=== PATIENT | male | born 1970 | race Two or more races ===

== ENCOUNTER 2020-05-19 08:21 | Inpatient (IN) | payer BC, OTHER ==
[~2020-05-19] VITALS: Ht 167.6 cm; Wt 103.6 kg
[~2020-05-19 08:21] MED LIST: NAPR500T31 PO
[2020-05-19] MEDS ORDERED: ONDANSETRON HCL 4 MG/2 ML VIAL IV ONE (08:45)
[2020-05-19] MEDS ORDERED: ZINC SULFATE 220mg CAP or TAB PO ONE (08:45)
[2020-05-19] MEDS ORDERED: CHOLECALCIFEROL (VITD3) 2,000 UNIT CAP/TAB PO ONE ×2 (08:45→12:15)
[2020-05-19] MEDS ORDERED: methylPREDNISolone SOD SUCC 125 MG/2 ML VL IV ONE (08:45)
[2020-05-19] MEDS ORDERED: ASCORBIC ACID 500 MG TAB PO ONE (08:45)
[2020-05-19] MEDS ORDERED: AZITHROMYCIN 500MG/ 250ML 250 ML IV ONE (08:45)
[2020-05-19 10:02] LABS: Basophils # (auto) 0 10 ^3/uL (0-0.2); Eosinophils # (auto) 0 10 ^3/uL (0-0.8); Hemoglobin 15.3 g/dL (13.5-17.5); Lymphocytes # (auto) 1.4 10 ^3/uL (0.4-5.4); Lymphocytes % (auto) 9.6 % (10.0-50.0); Mean Corpuscular Hgb Conc. 34.4 g/dL (32.0-36.0); Neutrophils # (auto) 12.1 10 ^3/uL (1.6-8.6); Nucleated Red Blood Cells % 0.1 %
[2020-05-19 10:05] LABS: Basophils % (auto) 0.3 % (0.0-2.0); Hematocrit 44.7 % (41.0-53.0); Mean Corpuscular Hemoglobin 30.8 pg (28.0-32.0); Mean Corpuscular Volume 89.5 fL (80.0-100.0); Monocytes % (auto) 6.9 % (0.0-12.0); Neutrophils % (auto) 83.2 % (37.0-80.0); Platelet Count (auto) 350 10^3/uL (140-450); Red Blood Cells 4.99 10^6/uL (4.5-5.90); Red Cell Distribution Width 13.8 % (11.8-14.3); White Blood Cell 14.6 10^3/uL (4.4-10.8)
[2020-05-19 10:21] LABS: Calcium 8.2 mg/dL (8.5-10.1)
[2020-05-19 10:24] LABS: Bilirubin, Total 0.5 mg/dL (0.2-1.0); Total Protein 7.8 g/dL (6.4-8.2)
[2020-05-19 10:28] LABS: Potassium 5.3 mmol/L (3.5-5.1)
[2020-05-19 10:30] LABS: BUN/Creatinine Ratio 18.4
[2020-05-19] MEDS ORDERED: NITROGLYCERIN 0.4 MG SL TAB SL PRN (10:45)
[2020-05-19] MEDS ORDERED: REMDESIVIR PER PHARMACY 0 ML IV SCH (10:45)
[2020-05-19] MEDS ORDERED: diphenhdrAMINE HCL 50 MG/1 ML VL IV PRN (11:45)
[2020-05-19] MEDS ORDERED: SODIUM ZIRCONIUM CYCL 10 GM PAK PO ONE (12:00)
[2020-05-19] MEDS ORDERED: traMADol HCL 50 MG TAB PO PRN (12:00)
[2020-05-19] MEDS ORDERED: FUROSEMIDE 40 MG/4 ML VIAL IV ONE (12:00)
[2020-05-19] MEDS ORDERED: LACTULOSE 20Gm/30ML SOLN PO PRN (12:00)
[2020-05-19] MEDS ORDERED: DEXTROSE (50%) 50ML SYRG IV PRN (12:00)
[2020-05-19] MEDS ORDERED: levoFLOXacin 500MG 100 ML IV ONE (12:00)
[2020-05-19] MEDS ORDERED: InsuLIN REG 1unit/0.01ml Soln (100units/ml) IV ONE (12:00)
[2020-05-19] MEDS ORDERED: DEXTROSE (50%) 50ML SYRG IV ONE (12:00)
[2020-05-19] MEDS ORDERED: IVERMECTIN 3 MG TAB PO ONE (12:15)
[2020-05-19] MEDS ORDERED: FAMOTIDINE 20 MG TAB PO ONE (12:15)
[2020-05-19] MEDS ORDERED: DexAMETHasone SOD PHOS 10MG/1ML VIAL INJ IV ONE (12:15)
[2020-05-19] MEDS ORDERED: ENOXAPARIN SOD 40 MG/0.4 ML SYRINGE SC ONE (12:15)
[2020-05-19] MEDS ORDERED: ASCORBIC ACID 1,000 MG TAB PO ONE (12:15)
[2020-05-19] MEDS: SODIUM CHLORIDE 0.9% 1,000 ML IV SCH (12:18)
[2020-05-19] MEDS: MORPHINE SULF INJ 2 MG/ML SYRINGE 1ML IV PRN (12:27)
[2020-05-19] MEDS: PROMETHAZINE HCL 25 MG/ML 1ML IV PRN (12:28)
[2020-05-19 12:33] LABS: Urine Bacteria NONE SEEN /hpf (None Seen); Urine Blood Negative /uL (Negative); Urine Specific Gravity 1.021 (1.001-1.035); Urine WBC 1 /hpf (0 - 3)
[2020-05-19] MEDS: CLINDAMYCIN 600MG IV 50 ML IV SCH ×2 (14:18→22:40)
[2020-05-19] MEDS ORDERED: REMDESIVIR 200 MG in NS 210ml LOADING DOSE ADULT IV ONE (15:00)
[2020-05-19 16:33] LABS: BUN/Creatinine Ratio 15.7; Calcium 7.9 mg/dL (8.5-10.1)
[2020-05-19] MEDS: InsuLIN REG 1unit/0.01ml Soln (100units/ml) SC SCH ×2 (16:50→22:45)
[2020-05-19] MEDS: ACCU-CHEK COMFORT CURVE STRIP VI SCH ×2 (16:51→22:30)
[2020-05-19 17:06] VITALS: BP 125/77
[2020-05-19 17:29] VITALS: BP 123/73
[2020-05-19 17:45] VITALS: BP 124/79
[2020-05-19 18:09] VITALS: BP 141/84
[2020-05-19] MEDS: ALBUTEROL SULF HFA 90MCG INH 200DOSE IN PRN (18:59)
[2020-05-19] MEDS: BUDESONIDE (INHALATION) 180 MCG IH IN SCH (18:59)
[2020-05-19] MEDS ORDERED: FAMOTIDINE 20 MG TAB PO SCH (22:00)
[2020-05-19] MEDS: FAMOTIDINE (10MG/ML) 2ML VL IV SCH (22:40)
[2020-05-19] MEDS: ENOXAPARIN SOD 40 MG/0.4 ML SYRINGE SC SCH (22:45)
[2020-05-20] MEDS: SODIUM CHLORIDE 0.9% 1,000 ML IV SCH (01:20)
[2020-05-20] MEDS: MORPHINE SULF INJ 2 MG/ML SYRINGE 1ML IV PRN ×2 (04:01→20:47)
[2020-05-20] MEDS: CLINDAMYCIN 600MG IV 50 ML IV SCH ×2 (06:00→13:36)
[2020-05-20 07:50] LABS: Basophils # (auto) 0.1 10 ^3/uL (0-0.2); Basophils % (auto) 0.6 % (0.0-2.0); Eosinophils # (auto) 0 10 ^3/uL (0-0.8); Hematocrit 45.5 % (41.0-53.0); Hemoglobin 15.2 g/dL (13.5-17.5); Lymphocytes # (auto) 1.8 10 ^3/uL (0.4-5.4); Lymphocytes % (auto) 11.9 % (10.0-50.0); Mean Corpuscular Hemoglobin 30.1 pg (28.0-32.0); Mean Corpuscular Hgb Conc. 33.4 g/dL (32.0-36.0); Mean Corpuscular Volume 90.4 fL (80.0-100.0); Monocytes # (auto) 1.5 10 ^3/uL (0-1.3); Neutrophils # (auto) 11.6 10 ^3/uL (1.6-8.6); Neutrophils % (auto) 77.5 % (37.0-80.0); Nucleated Red Blood Cells % 0.1 %; Platelet Count (auto) 403 10^3/uL (140-450); Red Blood Cells 5.03 10^6/uL (4.5-5.90)
[2020-05-20] MEDS: ALBUTEROL SULF HFA 90MCG INH 200DOSE IN PRN ×2 (07:50→22:39)
[2020-05-20] MEDS: BUDESONIDE (INHALATION) 180 MCG IH IN SCH ×2 (07:50→22:00)
[2020-05-20 08:10] LABS: Albumin 3.2 g/dL (3.4-5.0); Calcium 8.6 mg/dL (8.5-10.1); Potassium 4.3 mmol/L (3.5-5.1)
[2020-05-20 08:14] LABS: BUN/Creatinine Ratio 18.4; Bilirubin, Total 0.3 mg/dL (0.2-1.0); Total Protein 7.8 g/dL (6.4-8.2)
[2020-05-20] MEDS: ZINC SULFATE 220mg CAP or TAB PO SCH (10:00)
[2020-05-20] MEDS ORDERED: levoFLOXacin 500MG 100 ML IV SCH (10:00)
[2020-05-20] MEDS: CHOLECALCIFEROL (VITD3) 2,000 UNIT CAP/TAB PO SCH (10:00)
[2020-05-20] MEDS: DexAMETHasone SOD PHOS 10MG/1ML VIAL INJ IV SCH (10:00)
[2020-05-20] MEDS: FAMOTIDINE (10MG/ML) 2ML VL IV SCH ×2 (10:00→21:33)
[2020-05-20] MEDS ORDERED: IVERMECTIN 3 MG TAB PO ONE (10:00)
[2020-05-20] MEDS: ASCORBIC ACID 1,000 MG TAB PO SCH (10:00)
[2020-05-20] MEDS: ENOXAPARIN SOD 40 MG/0.4 ML SYRINGE SC SCH ×2 (10:00→21:33)
[2020-05-20] MEDS: InsuLIN REG 1unit/0.01ml Soln (100units/ml) SC SCH ×4 (10:33→21:35)
[2020-05-20] MEDS: ACCU-CHEK COMFORT CURVE STRIP VI SCH ×4 (10:33→21:34)
[2020-05-20] MEDS: REMDESIVIR 100mg 100 MG in SODIUM CHL 0.9% 230 ML IV SCH (13:46)
[2020-05-20] MEDS ORDERED: FUROSEMIDE 20 MG/2 ML VIAL IV ONE (14:00)
[2020-05-20] MEDS ORDERED: POTASSIUM CHL 10 Meq TABLET PO ONE (14:00)
[2020-05-20] MEDS: DOXYCYCLINE 100 MG TAB/CAP PO SCH (21:33)
[2020-05-21] MEDS: ALBUTEROL SULF HFA 90MCG INH 200DOSE IN PRN ×2 (00:23→07:08)
[2020-05-21] MEDS: BUDESONIDE (INHALATION) 180 MCG IH IN SCH ×3 (00:25→19:05)
[2020-05-21] MEDS: guaiFENesin-DM 100/10mg/5ml SYR PO PRN ×3 (03:34→23:10)
[2020-05-21 04:59] LABS: Basophils # (auto) 0 10 ^3/uL (0-0.2); Basophils % (auto) 0.3 % (0.0-2.0); Eosinophils # (auto) 0 10 ^3/uL (0-0.8); Hematocrit 42.3 % (41.0-53.0); Hemoglobin 14.4 g/dL (13.5-17.5); Lymphocytes # (auto) 1.9 10 ^3/uL (0.4-5.4); Lymphocytes % (auto) 12.1 % (10.0-50.0); Mean Corpuscular Hemoglobin 30.6 pg (28.0-32.0); Mean Corpuscular Volume 90.1 fL (80.0-100.0); Monocytes # (auto) 1.2 10 ^3/uL (0-1.3); Monocytes % (auto) 7.5 % (0.0-12.0); Neutrophils # (auto) 12.8 10 ^3/uL (1.6-8.6); Neutrophils % (auto) 80.1 % (37.0-80.0); Nucleated Red Blood Cells % 0.1 %; Platelet Count (auto) 391 10^3/uL (140-450); Red Cell Distribution Width 14.1 % (11.8-14.3)
[2020-05-21 05:17] LABS: Calcium 7.5 mg/dL (8.5-10.1); Magnesium 2.3 mg/dL (1.6-2.6); Potassium 3.9 mmol/L (3.5-5.1)
[2020-05-21 05:24] LABS: Albumin 2.6 g/dL (3.4-5.0); BUN/Creatinine Ratio 24.7; Bilirubin, Total 0.3 mg/dL (0.2-1.0); Total Protein 6.8 g/dL (6.4-8.2)
[2020-05-21] MEDS ORDERED: CALCIUM GLUC 4.65meq/50ml D5AE 50 ML IV ONE (06:00)
[2020-05-21] MEDS: InsuLIN REG 1unit/0.01ml Soln (100units/ml) SC SCH ×4 (07:00→21:51)
[2020-05-21] MEDS: ACCU-CHEK COMFORT CURVE STRIP VI SCH ×4 (07:12→21:52)
[2020-05-21] MEDS: MORPHINE SULF INJ 2 MG/ML SYRINGE 1ML IV PRN ×3 (08:26→22:42)
[2020-05-21] MEDS: FUROSEMIDE 20 MG/2 ML VIAL IV SCH (10:20)
[2020-05-21] MEDS: DexAMETHasone SOD PHOS 10MG/1ML VIAL INJ IV SCH (10:20)
[2020-05-21] MEDS: ZINC SULFATE 220mg CAP or TAB PO SCH (10:20)
[2020-05-21] MEDS: FAMOTIDINE (10MG/ML) 2ML VL IV SCH ×2 (10:20→21:46)
[2020-05-21] MEDS: ENOXAPARIN SOD 40 MG/0.4 ML SYRINGE SC SCH ×2 (10:21→21:52)
[2020-05-21] MEDS: CHOLECALCIFEROL (VITD3) 2,000 UNIT CAP/TAB PO SCH (10:21)
[2020-05-21] MEDS: DOXYCYCLINE 100 MG TAB/CAP PO SCH ×2 (10:21→21:46)
[2020-05-21] MEDS: ASCORBIC ACID 1,000 MG TAB PO SCH (10:21)
[2020-05-21] MEDS: POTASSIUM CHL 10 Meq TABLET PO SCH (10:28)
[2020-05-21] MEDS: REMDESIVIR 100mg 100 MG in SODIUM CHL 0.9% 230 ML IV SCH (14:49)
[2020-05-21] MEDS: ERGOCALCIFEROL 50,000 UNIT(1.25MG) CAP PO SCH (15:00)
[2020-05-21] MEDS: INSULIN LANTUS (GLARGINE) 1 /0.01ml (100units/ml) SC SCH (21:52)
[2020-05-22] MEDS: InsuLIN REG 1unit/0.01ml Soln (100units/ml) SC SCH ×4 (05:38→22:01)
[2020-05-22] MEDS: ACCU-CHEK COMFORT CURVE STRIP VI SCH ×4 (05:39→21:25)
[2020-05-22 05:59] LABS: Basophils # (auto) 0.2 10 ^3/uL (0-0.2); Eosinophils # (auto) 0 10 ^3/uL (0-0.8); Mean Corpuscular Hemoglobin 30.5 pg (28.0-32.0); Mean Corpuscular Hgb Conc. 33.7 g/dL (32.0-36.0); Nucleated Red Blood Cells % 0.1 %
[2020-05-22 06:01] LABS: Basophils % (auto) 1.3 % (0.0-2.0); Hematocrit 43.7 % (41.0-53.0); Hemoglobin 14.7 g/dL (13.5-17.5); Lymphocytes % (auto) 11.8 % (10.0-50.0); Mean Corpuscular Volume 90.6 fL (80.0-100.0); Monocytes # (auto) 1.2 10 ^3/uL (0-1.3); Monocytes % (auto) 7.3 % (0.0-12.0); Neutrophils # (auto) 13.2 10 ^3/uL (1.6-8.6); Neutrophils % (auto) 79.6 % (37.0-80.0); Platelet Count (auto) 473 10^3/uL (140-450); Red Blood Cells 4.82 10^6/uL (4.5-5.90); White Blood Cell 16.6 10^3/uL (4.4-10.8)
[2020-05-22] MEDS: MORPHINE SULF INJ 2 MG/ML SYRINGE 1ML IV PRN ×3 (06:09→21:24)
[2020-05-22 06:25] LABS: Albumin 2.7 g/dL (3.4-5.0); Potassium 4.3 mmol/L (3.5-5.1)
[2020-05-22 06:36] LABS: BUN/Creatinine Ratio 24.7; Bilirubin, Total 0.4 mg/dL (0.2-1.0); CRP High Sensitivity 8.99 mg/dL (< 0.3); Calcium 8.2 mg/dL (8.5-10.1)
[2020-05-22] MEDS: BUDESONIDE (INHALATION) 180 MCG IH IN SCH ×2 (07:30→18:53)
[2020-05-22] MEDS: ALBUTEROL SULF HFA 90MCG INH 200DOSE IN PRN ×2 (07:30→18:52)
[2020-05-22] MEDS: FUROSEMIDE 20 MG/2 ML VIAL IV SCH (09:50)
[2020-05-22] MEDS: DexAMETHasone SOD PHOS 10MG/1ML VIAL INJ IV SCH ×2 (09:50→22:00)
[2020-05-22] MEDS: POTASSIUM CHL 10 Meq TABLET PO SCH (09:51)
[2020-05-22] MEDS: ZINC SULFATE 220mg CAP or TAB PO SCH (09:51)
[2020-05-22] MEDS: ENOXAPARIN SOD 40 MG/0.4 ML SYRINGE SC SCH ×2 (09:51→22:00)
[2020-05-22] MEDS: ASCORBIC ACID 1,000 MG TAB PO SCH (09:51)
[2020-05-22] MEDS: FAMOTIDINE (10MG/ML) 2ML VL IV SCH ×2 (09:51→22:00)
[2020-05-22] MEDS: CHOLECALCIFEROL (VITD3) 2,000 UNIT CAP/TAB PO SCH (09:51)
[2020-05-22] MEDS: DOXYCYCLINE 100 MG TAB/CAP PO SCH ×2 (09:51→22:00)
[2020-05-22] MEDS: REMDESIVIR 100mg 100 MG in SODIUM CHL 0.9% 230 ML IV SCH (15:27)
[2020-05-22] MEDS: PROMETHAZINE HCL 25 MG/ML 1ML IV PRN (21:25)
[2020-05-22] MEDS: INSULIN LANTUS (GLARGINE) 1 /0.01ml (100units/ml) SC SCH (22:02)
[2020-05-23] MEDS: TEMAZEPAM 15 MG CAP PO PRN (02:37)
[2020-05-23] MEDS: MORPHINE SULF INJ 2 MG/ML SYRINGE 1ML IV PRN ×3 (06:30→20:31)
[2020-05-23] MEDS: PROMETHAZINE HCL 25 MG/ML 1ML IV PRN ×2 (06:30→20:32)
[2020-05-23] MEDS: ACCU-CHEK COMFORT CURVE STRIP VI SCH ×4 (06:43→22:00)
[2020-05-23] MEDS: InsuLIN REG 1unit/0.01ml Soln (100units/ml) SC SCH ×4 (06:44→22:32)
[2020-05-23 09:07] LABS: Albumin 2.8 g/dL (3.4-5.0); Calcium 8.5 mg/dL (8.5-10.1); Potassium 4.3 mmol/L (3.5-5.1)
[2020-05-23 09:10] LABS: BUN/Creatinine Ratio 19.5; Bilirubin, Total 0.5 mg/dL (0.2-1.0); Total Protein 7.5 g/dL (6.4-8.2)
[2020-05-23] MEDS: BUDESONIDE (INHALATION) 180 MCG IH IN SCH ×2 (10:00→18:36)
[2020-05-23] MEDS: FUROSEMIDE 20 MG/2 ML VIAL IV SCH (10:38)
[2020-05-23] MEDS: DexAMETHasone SOD PHOS 10MG/1ML VIAL INJ IV SCH ×2 (10:38→22:00)
[2020-05-23] MEDS: ZINC SULFATE 220mg CAP or TAB PO SCH (10:38)
[2020-05-23] MEDS: FAMOTIDINE (10MG/ML) 2ML VL IV SCH ×2 (10:38→22:00)
[2020-05-23] MEDS: ENOXAPARIN SOD 40 MG/0.4 ML SYRINGE SC SCH ×2 (10:39→22:00)
[2020-05-23] MEDS: CHOLECALCIFEROL (VITD3) 2,000 UNIT CAP/TAB PO SCH (10:39)
[2020-05-23] MEDS: DOXYCYCLINE 100 MG TAB/CAP PO SCH ×2 (10:39→22:00)
[2020-05-23] MEDS: POTASSIUM CHL 10 Meq TABLET PO SCH (10:39)
[2020-05-23] MEDS: ASCORBIC ACID 1,000 MG TAB PO SCH (10:39)
[2020-05-23] MEDS: REMDESIVIR 100mg 100 MG in SODIUM CHL 0.9% 230 ML IV SCH (14:25)
[2020-05-23] MEDS: guaiFENesin-DM 100/10mg/5ml SYR PO PRN (18:51)
[2020-05-23] MEDS: ALBUTEROL SULF HFA 90MCG INH 200DOSE IN PRN (20:00)
[2020-05-23] MEDS: INSULIN LANTUS (GLARGINE) 1 /0.01ml (100units/ml) SC SCH (22:32)
[2020-05-24] MEDS: PROMETHAZINE HCL 25 MG/ML 1ML IV PRN (06:04)
[2020-05-24] MEDS: MORPHINE SULF INJ 2 MG/ML SYRINGE 1ML IV PRN ×3 (06:04→19:37)
[2020-05-24] MEDS: ACCU-CHEK COMFORT CURVE STRIP VI SCH ×4 (06:27→23:10)
[2020-05-24] MEDS: InsuLIN REG 1unit/0.01ml Soln (100units/ml) SC SCH ×4 (06:47→23:03)
[2020-05-24] MEDS: BUDESONIDE (INHALATION) 180 MCG IH IN SCH ×2 (06:53→19:15)
[2020-05-24] MEDS: ALBUTEROL SULF HFA 90MCG INH 200DOSE IN PRN ×2 (06:53→19:15)
[2020-05-24 07:45] LABS: Lactic Acid w/Reflex 2.4 mmol/L (0.4-2.0)
[2020-05-24 07:46] LABS: Potassium 4.5 mmol/L (3.5-5.1)
[2020-05-24 07:59] LABS: CRP High Sensitivity 8.11 mg/dL (< 0.3)
[2020-05-24 08:09] LABS: INR 1.18 (0.9-1.15)
[2020-05-24] MEDS: DexAMETHasone SOD PHOS 10MG/1ML VIAL INJ IV SCH ×2 (08:54→23:09)
[2020-05-24] MEDS: FUROSEMIDE 20 MG/2 ML VIAL IV SCH (08:54)
[2020-05-24] MEDS: POTASSIUM CHL 10 Meq TABLET PO SCH (08:55)
[2020-05-24] MEDS: DOXYCYCLINE 100 MG TAB/CAP PO SCH ×2 (08:55→23:09)
[2020-05-24] MEDS: ZINC SULFATE 220mg CAP or TAB PO SCH (08:55)
[2020-05-24] MEDS: FAMOTIDINE (10MG/ML) 2ML VL IV SCH ×2 (08:55→23:09)
[2020-05-24] MEDS: ASCORBIC ACID 1,000 MG TAB PO SCH (08:56)
[2020-05-24] MEDS: ENOXAPARIN SOD 40 MG/0.4 ML SYRINGE SC SCH (08:56)
[2020-05-24] MEDS: CHOLECALCIFEROL (VITD3) 2,000 UNIT CAP/TAB PO SCH (08:56)
[2020-05-24] MEDS: FUROSEMIDE 40 MG/4 ML VIAL IV SCH (09:39)
[2020-05-24] MEDS ORDERED: LIDOCAINE VISCOUS 2% 15ML UD MT ONE (09:45)
[2020-05-24] MEDS ORDERED: DONNATAL 5ml ORAL Elix (BELLADONNA ALK-PHENOBARB) PO ONE (09:45)
[2020-05-24] MEDS ORDERED: POTASSIUM CHL 20 Meq TABLET PO SCH (10:00)
[2020-05-24] MEDS ORDERED: ALUM & MAG HYDROX-SIMETH LIQ(MAALOX) 30 ML PO ONE (10:00)
[2020-05-24 12:23] VITALS: BP 117/72
[2020-05-24] MEDS ORDERED: METF-370 PO (12:36)
[2020-05-24] MEDS ORDERED: IOHEXOL 350 MG/ML 100ML IJ ONE (14:41)
[2020-05-24 16:00] VITALS: BP 99/55
[2020-05-24] MEDS ORDERED: HYDROmorphone HCL 2 MG/ML VL IV ONE (20:00)
[2020-05-24] MEDS ORDERED: METOPROLOL SUCCINATE XL 50 MG TAB PO ONE (20:00)
[2020-05-24] MEDS ORDERED: SODIUM CHLORIDE 0.9% 1,000 ML IV ONE (20:00)
[2020-05-24] MEDS: INSULIN LANTUS (GLARGINE) 1 /0.01ml (100units/ml) SC SCH (23:02)
[2020-05-24] MEDS: ENOXAPARIN SOD 100 MG/1 ML SYRINGE SC SCH (23:10)
[2020-05-24] MEDS: ALUM & MAG HYDROX-SIMETH LIQ(MAALOX) 30 ML PO PRN (23:53)
[2020-05-25] VITALS (12 sets, daily range): BP systolic 95–126; BP diastolic 54–87
[2020-05-25] MEDS: MORPHINE SULF INJ 2 MG/ML SYRINGE 1ML IV PRN ×3 (06:02→20:30)
[2020-05-25] MEDS: BUDESONIDE (INHALATION) 180 MCG IH IN SCH ×2 (06:30→20:40)
[2020-05-25] MEDS: ALBUTEROL SULF HFA 90MCG INH 200DOSE IN PRN ×2 (06:31→20:44)
[2020-05-25] MEDS: ACCU-CHEK COMFORT CURVE STRIP VI SCH ×4 (07:03→22:42)
[2020-05-25] MEDS: InsuLIN REG 1unit/0.01ml Soln (100units/ml) SC SCH ×4 (07:04→22:43)
[2020-05-25 08:10] LABS: Hematocrit 47.8 % (41.0-53.0); Hemoglobin 16.2 g/dL (13.5-17.5); Mean Corpuscular Hemoglobin 30.4 pg (28.0-32.0); Mean Corpuscular Hgb Conc. 33.8 g/dL (32.0-36.0); Mean Corpuscular Volume 89.9 fL (80.0-100.0); Platelet Count (auto) 340 10^3/uL (140-450); Red Blood Cells 5.32 10^6/uL (4.5-5.90); Red Cell Distribution Width 13.6 % (11.8-14.3); White Blood Cell 24.8 10^3/uL (4.4-10.8)
[2020-05-25 08:26] LABS: Basophils % (manual) 0 (0.0-2.0); Blast Cells 0; Eosinophils % (manual) 0 (0-7); Promyelocytes % 0; Reactive Lymphocytes 0
[2020-05-25 08:30] LABS: Potassium 4.9 mmol/L (3.5-5.1)
[2020-05-25 08:41] LABS: Albumin 2.6 g/dL (3.4-5.0); BUN/Creatinine Ratio 27.9; Bilirubin, Total 0.6 mg/dL (0.2-1.0); Calcium 8.6 mg/dL (8.5-10.1); Magnesium 2.7 mg/dL (1.6-2.6); Total Protein 7.1 g/dL (6.4-8.2)
[2020-05-25 09:03] LABS: INR 1.25 (0.9-1.15)
[2020-05-25] MEDS: FUROSEMIDE 40 MG/4 ML VIAL IV SCH (10:00)
[2020-05-25] MEDS: ENOXAPARIN SOD 100 MG/1 ML SYRINGE SC SCH ×2 (11:04→22:42)
[2020-05-25] MEDS: DexAMETHasone SOD PHOS 10MG/1ML VIAL INJ IV SCH ×2 (11:05→22:41)
[2020-05-25] MEDS: ASCORBIC ACID 1,000 MG TAB PO SCH (11:05)
[2020-05-25] MEDS: ZINC SULFATE 220mg CAP or TAB PO SCH (11:05)
[2020-05-25] MEDS: CHOLECALCIFEROL (VITD3) 2,000 UNIT CAP/TAB PO SCH (11:05)
[2020-05-25] MEDS: FAMOTIDINE (10MG/ML) 2ML VL IV SCH ×2 (11:05→22:41)
[2020-05-25] MEDS: DOXYCYCLINE 100 MG TAB/CAP PO SCH (11:06)
[2020-05-25] MEDS: POTASSIUM CHL 10 Meq TABLET PO SCH (11:06)
[2020-05-25] MEDS: ALUM & MAG HYDROX-SIMETH LIQ(MAALOX) 30 ML PO PRN (11:32)
[2020-05-25 13:12] LABS: Band Neutrophils % (manual) 27; Lymphocytes % (manual) 6 (10.0-50.0); Metamyelocytes % 2; Monocytes % (manual) 1 (0-12); Myelocytes % 1
[2020-05-25] MEDS: PIPERACILLIN-TAZOB 3.375GM 100 ML IV SCH ×2 (17:54→23:32)
[2020-05-25] MEDS: INSULIN LANTUS (GLARGINE) 1 /0.01ml (100units/ml) SC SCH (22:45)
[2020-05-25] MEDS: TEMAZEPAM 15 MG CAP PO PRN (23:03)
[2020-05-25 23:10] LABS: INR 1.24 (0.9-1.15); Partial Thromboplastin Time 29.3 sec (23.0-31.2)
[2020-05-26] VITALS (61 sets, daily range): BP systolic 77–215; BP diastolic 46–160
[2020-05-26] MEDS: LORazepam 0.5 MG TAB PO PRN ×2 (01:00→09:00)
[2020-05-26] MEDS: guaiFENesin-DM 100/10mg/5ml SYR PO PRN (01:23)
[2020-05-26] MEDS: MORPHINE SULF INJ 2 MG/ML SYRINGE 1ML IV PRN (03:42)
[2020-05-26] MEDS: BUDESONIDE (INHALATION) 180 MCG IH IN SCH (06:06)
[2020-05-26] MEDS: ALBUTEROL SULF HFA 90MCG INH 200DOSE IN PRN (06:06)
[2020-05-26] MEDS: ACCU-CHEK COMFORT CURVE STRIP VI SCH ×4 (06:31→23:13)
[2020-05-26] MEDS: InsuLIN REG 1unit/0.01ml Soln (100units/ml) SC SCH ×3 (06:33→18:00)
[2020-05-26] MEDS: PIPERACILLIN-TAZOB 3.375GM 100 ML IV SCH ×4 (06:33→23:14)
[2020-05-26 09:37] LABS: Hematocrit 44.9 % (41.0-53.0); Mean Corpuscular Hemoglobin 30.3 pg (28.0-32.0); Mean Corpuscular Hgb Conc. 33.4 g/dL (32.0-36.0); Mean Corpuscular Volume 90.6 fL (80.0-100.0); Platelet Count (auto) 323 10^3/uL (140-450); Red Blood Cells 4.96 10^6/uL (4.5-5.90); White Blood Cell 23.9 10^3/uL (4.4-10.8)
[2020-05-26 09:54] LABS: Albumin 2.2 g/dL (3.4-5.0); Calcium 7.7 mg/dL (8.5-10.1); Potassium 4.2 mmol/L (3.5-5.1)
[2020-05-26 09:55] LABS: Band Neutrophils % (manual) 0; Basophils % (manual) 0 (0.0-2.0); Blast Cells 0; Eosinophils % (manual) 0 (0-7); INR 1.24 (0.9-1.15); Metamyelocytes % 0; Myelocytes % 0; Partial Thromboplastin Time 29.6 sec (23.0-31.2); Promyelocytes % 0; Reactive Lymphocytes 0
[2020-05-26 09:58] LABS: BUN/Creatinine Ratio 24.3; Bilirubin, Total 0.6 mg/dL (0.2-1.0); Total Protein 6.6 g/dL (6.4-8.2)
[2020-05-26] MEDS: POTASSIUM CHL 10 Meq TABLET PO SCH (10:00)
[2020-05-26] MEDS: CHOLECALCIFEROL (VITD3) 2,000 UNIT CAP/TAB PO SCH (10:00)
[2020-05-26] MEDS: ZINC SULFATE 220mg CAP or TAB PO SCH (10:00)
[2020-05-26] MEDS: FAMOTIDINE (10MG/ML) 2ML VL IV SCH ×2 (10:00→23:12)
[2020-05-26] MEDS: ENOXAPARIN SOD 100 MG/1 ML SYRINGE SC SCH ×2 (10:00→22:00)
[2020-05-26] MEDS: ASCORBIC ACID 1,000 MG TAB PO SCH (10:00)
[2020-05-26] MEDS: DexAMETHasone SOD PHOS 10MG/1ML VIAL INJ IV SCH ×2 (10:00→23:10)
[2020-05-26] MEDS: FUROSEMIDE 40 MG/4 ML VIAL IV SCH (10:00)
[2020-05-26 11:23] LABS: Lymphocytes % (manual) 7 (10.0-50.0); Monocytes % (manual) 2 (0-12)
[2020-05-26] MEDS ORDERED: LORazepam 2MG/ML-1ML VIAL IV PRN (14:15)
[2020-05-26] MEDS: fentaNYL Drip 2500mCg/250mlNS 250 ML IV SCH (16:00)
[2020-05-26] MEDS: PROPOFOL 100 ML IV SCH (16:00)
[2020-05-26] MEDS: NOREPINEPHRINE 8 MG/250ML KIT 250 ML IV SCH (16:00)
[2020-05-26] MEDS: MIDAZOLAM DRIP 50 mg/50mL 50 ML IV SCH (16:00)
[2020-05-26] MEDS ORDERED: ETOMIDATE (2MG/ML) 20ML VIAL IV ONE (16:12)
[2020-05-26] MEDS ORDERED: SUCCINYLCHOLINE CHLORIDE 20 MG/ML 10ML VIAL IV ONE (16:12)
[2020-05-26] MEDS ORDERED: fentaNYL Drip 2500mCg/250mlNS 250 ML IV ONE (16:14)
[2020-05-26] MEDS ORDERED: MIDAZOLAM DRIP 50 mg/50mL 50 ML IV ONE ×2 (16:14→16:49)
[2020-05-26] MEDS ORDERED: PROPOFOL 100 ML IV ONE (17:13)
[2020-05-26] MEDS ORDERED: NOREPINEPHRINE 8 MG/250ML KIT 250 ML IV ONE ×2 (17:13→17:44)
[2020-05-26] MEDS ORDERED: ALTEPLASE (RECOMBINANT) 100 MG in STERILE WATER 100 ML IV ONE ×4 (22:45)
[2020-05-26 23:47] LABS: Hematocrit 44.9 % (41.0-53.0); Mean Corpuscular Hemoglobin 30.4 pg (28.0-32.0); Mean Corpuscular Hgb Conc. 33.4 g/dL (32.0-36.0); Mean Corpuscular Volume 90.9 fL (80.0-100.0); Platelet Count (auto) 359 10^3/uL (140-450); Red Blood Cells 4.93 10^6/uL (4.5-5.90); Red Cell Distribution Width 14.2 % (11.8-14.3); White Blood Cell 26.6 10^3/uL (4.4-10.8)
[2020-05-26 23:50] LABS: Basophils % (manual) 0 (0.0-2.0); Blast Cells 0; Eosinophils % (manual) 0 (0-7); Myelocytes % 0; Promyelocytes % 0; Reactive Lymphocytes 0
[2020-05-26 23:52] LABS: INR 1.18 (0.9-1.15); Partial Thromboplastin Time 27.3 sec (23.0-31.2)
[2020-05-27] VITALS (82 sets, daily range): BP systolic 89–137; BP diastolic 53–85
[2020-05-27 00:37] LABS: Metamyelocytes % 1
[2020-05-27 00:38] LABS: Band Neutrophils % (manual) 6; Lymphocytes % (manual) 4 (10.0-50.0); Monocytes % (manual) 3 (0-12)
[2020-05-27] MEDS: INSULIN LANTUS (GLARGINE) 1 /0.01ml (100units/ml) SC SCH ×2 (00:43→22:00)
[2020-05-27] MEDS ORDERED: HEPARIN DRIP/D5W 100UNITS/ML 250 ML IV SCH ×3 (00:45→10:45)
[2020-05-27] MEDS ORDERED: ALTEPLASE (RECOMBINANT) 100 MG ONE (00:50)
[2020-05-27] MEDS: InsuLIN REG 1unit/0.01ml Soln (100units/ml) SC SCH ×4 (01:15→18:30)
[2020-05-27] MEDS: PIPERACILLIN-TAZOB 3.375GM 100 ML IV SCH ×4 (06:03→23:36)
[2020-05-27] MEDS: ACCU-CHEK COMFORT CURVE STRIP VI SCH ×4 (07:07→22:00)
[2020-05-27] MEDS: MIDAZOLAM DRIP 50 mg/50mL 50 ML IV SCH (08:10)
[2020-05-27] MEDS: PROPOFOL 100 ML IV SCH ×2 (09:37→12:32)
[2020-05-27] MEDS: POTASSIUM CHL 10 Meq TABLET PO SCH (10:00)
[2020-05-27 10:07] LABS: BUN/Creatinine Ratio 20.5; Calcium 8.3 mg/dL (8.5-10.1); Potassium 5.1 mmol/L (3.5-5.1)
[2020-05-27] MEDS: DexAMETHasone SOD PHOS 10MG/1ML VIAL INJ IV SCH ×2 (10:08→22:00)
[2020-05-27] MEDS: FAMOTIDINE (10MG/ML) 2ML VL IV SCH ×2 (10:09→22:00)
[2020-05-27] MEDS: ASCORBIC ACID 1,000 MG TAB PO SCH (10:09)
[2020-05-27] MEDS: ZINC SULFATE 220mg CAP or TAB PO SCH (10:09)
[2020-05-27] MEDS: FUROSEMIDE 40 MG/4 ML VIAL IV SCH (10:09)
[2020-05-27 10:11] LABS: Hematocrit 45.3 % (41.0-53.0); Hemoglobin 14.7 g/dL (13.5-17.5); Mean Corpuscular Hemoglobin 30.1 pg (28.0-32.0); Mean Corpuscular Hgb Conc. 32.5 g/dL (32.0-36.0); Mean Corpuscular Volume 92.6 fL (80.0-100.0); Platelet Count (auto) 305 10^3/uL (140-450); Red Blood Cells 4.89 10^6/uL (4.5-5.90); White Blood Cell 24.1 10^3/uL (4.4-10.8)
[2020-05-27 10:37] LABS: Basophils % (manual) 0 (0.0-2.0); Blast Cells 0; Eosinophils % (manual) 0 (0-7); Metamyelocytes % 0; Myelocytes % 0; Promyelocytes % 0; Reactive Lymphocytes 0
[2020-05-27] MEDS ORDERED: HEPARIN SODIUM (PORCINE) 5000 UNITS/ML 1ML VIAL IV ONE (10:45)
[2020-05-27] MEDS: CHOLECALCIFEROL (VITD3) 1,000UNIT=25mCg TAB PO SCH (12:32)
[2020-05-27 13:01] LABS: INR 1.18 (0.9-1.15); Partial Thromboplastin Time 26.1 sec (23.0-31.2)
[2020-05-27 13:03] LABS: Band Neutrophils % (manual) 8; Lymphocytes % (manual) 2 (10.0-50.0); Monocytes % (manual) 3 (0-12)
[2020-05-27] MEDS: fentaNYL Drip 2500mCg/250mlNS 250 ML IV SCH (14:30)
[2020-05-27] MEDS: HEPARIN DRIP/D5W 100UNITS/ML 250 ML IV SCH ×2 (14:45→20:00)
[2020-05-27] MEDS: NOREPINEPHRINE 8 MG/250ML KIT 250 ML IV SCH (18:49)
[2020-05-27] MEDS: CYCLOSPORINE MODIFIED PO SCH (22:00)
[2020-05-27 22:04] LABS: INR 1.2 (0.9-1.15); Partial Thromboplastin Time 41.4 sec (23.0-31.2)
[2020-05-28] VITALS (100 sets, daily range): BP systolic 89–125; BP diastolic 51–75
[2020-05-28] MEDS: PROPOFOL 100 ML IV SCH ×3 (00:59→09:22)
[2020-05-28] MEDS: MIDAZOLAM DRIP 50 mg/50mL 50 ML IV SCH ×3 (01:00→11:02)
[2020-05-28] MEDS: fentaNYL Drip 2500mCg/250mlNS 250 ML IV SCH ×2 (01:46→16:27)
[2020-05-28 04:25] LABS: Hematocrit 41.1 % (41.0-53.0); Hemoglobin 13.7 g/dL (13.5-17.5); Mean Corpuscular Hemoglobin 30.2 pg (28.0-32.0); Mean Corpuscular Hgb Conc. 33.2 g/dL (32.0-36.0); Mean Corpuscular Volume 90.9 fL (80.0-100.0); Platelet Count (auto) 368 10^3/uL (140-450); Red Blood Cells 4.52 10^6/uL (4.5-5.90); Red Cell Distribution Width 14.1 % (11.8-14.3)
[2020-05-28 04:36] LABS: INR 1.23 (0.9-1.15); Partial Thromboplastin Time 48.4 sec (23.0-31.2)
[2020-05-28 04:57] LABS: Potassium 4.2 mmol/L (3.5-5.1)
[2020-05-28 05:06] LABS: BUN/Creatinine Ratio 22.2; Bilirubin, Total 0.5 mg/dL (0.2-1.0); Calcium 7.6 mg/dL (8.5-10.1); Magnesium 2.9 mg/dL (1.6-2.6)
[2020-05-28 05:15] LABS: Basophils % (manual) 0 (0.0-2.0); Blast Cells 0; Eosinophils % (manual) 0 (0-7); Metamyelocytes % 0; Promyelocytes % 0; Reactive Lymphocytes 0
[2020-05-28] MEDS: PIPERACILLIN-TAZOB 3.375GM 100 ML IV SCH ×3 (06:00→18:41)
[2020-05-28 06:42] LABS: Band Neutrophils % (manual) 2; Myelocytes % 2
[2020-05-28 06:43] LABS: Lymphocytes % (manual) 2 (10.0-50.0); Monocytes % (manual) 3 (0-12)
[2020-05-28] MEDS: InsuLIN REG 1unit/0.01ml Soln (100units/ml) SC SCH ×4 (07:04→18:00)
[2020-05-28] MEDS: ACCU-CHEK COMFORT CURVE STRIP VI SCH ×4 (07:05→22:00)
[2020-05-28 08:54] LABS: Hematocrit 41.2 % (41.0-53.0); Hemoglobin 13.6 g/dL (13.5-17.5); Mean Corpuscular Hemoglobin 30.2 pg (28.0-32.0); Mean Corpuscular Hgb Conc. 33.1 g/dL (32.0-36.0); Platelet Count (auto) 373 10^3/uL (140-450); Red Blood Cells 4.52 10^6/uL (4.5-5.90); Red Cell Distribution Width 13.9 % (11.8-14.3); White Blood Cell 26.2 10^3/uL (4.4-10.8)
[2020-05-28 08:59] LABS: Basophils % (manual) 0 (0.0-2.0); Blast Cells 0; Eosinophils % (manual) 0 (0-7); Metamyelocytes % 0; Promyelocytes % 0; Reactive Lymphocytes 0
[2020-05-28 09:18] LABS: INR 1.2 (0.9-1.15)
[2020-05-28 09:21] LABS: Partial Thromboplastin Time 92.5 sec (23.0-31.2)
[2020-05-28] MEDS: DexAMETHasone SOD PHOS 10MG/1ML VIAL INJ IV SCH ×2 (10:10→22:00)
[2020-05-28] MEDS: CHOLECALCIFEROL (VITD3) 1,000UNIT=25mCg TAB PO SCH (10:11)
[2020-05-28] MEDS: CYCLOSPORINE MODIFIED PO SCH ×2 (10:11→22:00)
[2020-05-28] MEDS: ZINC SULFATE 220mg CAP or TAB PO SCH (10:11)
[2020-05-28] MEDS: FAMOTIDINE (10MG/ML) 2ML VL IV SCH ×2 (10:11→22:00)
[2020-05-28] MEDS: ASCORBIC ACID 1,000 MG TAB PO SCH (10:12)
[2020-05-28] MEDS: FUROSEMIDE 40 MG/4 ML VIAL IV SCH (11:02)
[2020-05-28 12:30] LABS: Band Neutrophils % (manual) 3; Lymphocytes % (manual) 7 (10.0-50.0); Monocytes % (manual) 4 (0-12); Myelocytes % 1
[2020-05-28] MEDS ORDERED: MICAFUNGIN SODIUM 100 MG in SODIUM CHL 0.9% 100 ML IV ONE (14:00)
[2020-05-28] MEDS: ERGOCALCIFEROL 50,000 UNIT(1.25MG) CAP PO SCH (15:00)
[2020-05-28 16:23] LABS: INR 1.1 (0.9-1.15); Partial Thromboplastin Time 33.6 sec (23.0-31.2)
[2020-05-28] MEDS: NOREPINEPHRINE 8 MG/250ML KIT 250 ML IV SCH (18:41)
[2020-05-28] MEDS: INSULIN LANTUS (GLARGINE) 1 /0.01ml (100units/ml) SC SCH (22:00)
[2020-05-28 22:55] LABS: INR 1.12 (0.9-1.15); Partial Thromboplastin Time 65.6 sec (23.0-31.2)
[2020-05-28] MEDS: HEPARIN DRIP/D5W 100UNITS/ML 250 ML IV SCH (23:31)
[2020-05-29] VITALS (97 sets, daily range): BP systolic 90–179; BP diastolic 46–86
[2020-05-29] MEDS: PROPOFOL 100 ML IV SCH ×4 (01:01→22:43)
[2020-05-29] MEDS: MIDAZOLAM DRIP 50 mg/50mL 50 ML IV SCH ×3 (01:02→22:42)
[2020-05-29] MEDS: PIPERACILLIN-TAZOB 3.375GM 100 ML IV SCH ×4 (05:40→18:00)
[2020-05-29] MEDS: InsuLIN REG 1unit/0.01ml Soln (100units/ml) SC SCH ×5 (05:41→23:13)
[2020-05-29] MEDS: ACCU-CHEK COMFORT CURVE STRIP VI SCH ×4 (05:41→22:18)
[2020-05-29 06:46] LABS: Mean Corpuscular Hgb Conc. 32.8 g/dL (32.0-36.0); Red Blood Cells 4.47 10^6/uL (4.5-5.90); Red Cell Distribution Width 14.5 % (11.8-14.3)
[2020-05-29 06:51] LABS: Hematocrit 41.3 % (41.0-53.0); Hemoglobin 13.5 g/dL (13.5-17.5); Mean Corpuscular Hemoglobin 30.3 pg (28.0-32.0); Mean Corpuscular Volume 92.5 fL (80.0-100.0); Platelet Count (auto) 380 10^3/uL (140-450)
[2020-05-29 07:03] LABS: White Blood Cell 30.3 10^3/uL (4.4-10.8)
[2020-05-29 07:04] LABS: Basophils % (manual) 0 (0.0-2.0); Blast Cells 0; Eosinophils % (manual) 0 (0-7); Promyelocytes % 0; Reactive Lymphocytes 0
[2020-05-29 07:13] LABS: INR 1.18 (0.9-1.15)
[2020-05-29] MEDS: fentaNYL Drip 2500mCg/250mlNS 250 ML IV SCH ×2 (07:19→22:44)
[2020-05-29 07:21] LABS: Partial Thromboplastin Time 79.7 sec (23.0-31.2)
[2020-05-29] MEDS: HEPARIN DRIP/D5W 100UNITS/ML 250 ML IV SCH (07:40)
[2020-05-29 09:03] LABS: Band Neutrophils % (manual) 1; Lymphocytes % (manual) 2 (10.0-50.0); Metamyelocytes % 1; Monocytes % (manual) 4 (0-12); Myelocytes % 1
[2020-05-29] MEDS: FUROSEMIDE 40 MG/4 ML VIAL IV SCH (10:00)
[2020-05-29] MEDS: CYCLOSPORINE MODIFIED PO SCH ×2 (10:00→23:12)
[2020-05-29] MEDS ORDERED: MICAFUNGIN SODIUM 100 MG in SODIUM CHL 0.9% 100 ML IV SCH (10:00)
[2020-05-29] MEDS: FAMOTIDINE (10MG/ML) 2ML VL IV SCH ×2 (10:07→22:13)
[2020-05-29] MEDS: ASCORBIC ACID 1,000 MG TAB PO SCH (10:07)
[2020-05-29] MEDS: ZINC SULFATE 220mg CAP or TAB PO SCH (10:07)
[2020-05-29] MEDS: DexAMETHasone SOD PHOS 10MG/1ML VIAL INJ IV SCH ×2 (10:07→22:13)
[2020-05-29] MEDS: CHOLECALCIFEROL (VITD3) 1,000UNIT=25mCg TAB PO SCH (10:07)
[2020-05-29] MEDS ORDERED: LINEZOLID 600MG/300ML 300 ML IV SCH (10:15)
[2020-05-29 11:51] LABS: Hematocrit 41.4 % (41.0-53.0); Hemoglobin 13.9 g/dL (13.5-17.5); Mean Corpuscular Hemoglobin 30.7 pg (28.0-32.0); Mean Corpuscular Hgb Conc. 33.5 g/dL (32.0-36.0); Mean Corpuscular Volume 91.4 fL (80.0-100.0); Platelet Count (auto) 386 10^3/uL (140-450); Red Blood Cells 4.53 10^6/uL (4.5-5.90); Red Cell Distribution Width 14.2 % (11.8-14.3); White Blood Cell 29.1 10^3/uL (4.4-10.8)
[2020-05-29 12:00] LABS: Band Neutrophils % (manual) 0; Basophils % (manual) 0 (0.0-2.0); Blast Cells 0; Myelocytes % 0; Promyelocytes % 0; Reactive Lymphocytes 0
[2020-05-29 12:37] LABS: Eosinophils % (manual) 1 (0-7); Lymphocytes % (manual) 2 (10.0-50.0); Metamyelocytes % 2; Monocytes % (manual) 6 (0-12)
[2020-05-29] MEDS: NOREPINEPHRINE 8 MG/250ML KIT 250 ML IV SCH (16:00)
[2020-05-29] MEDS: LINEZOLID 600MG/300ML 300 ML IV SCH (22:18)
[2020-05-29] MEDS: INSULIN LANTUS (GLARGINE) 1 /0.01ml (100units/ml) SC SCH (23:13)
[2020-05-30] VITALS (97 sets, daily range): BP systolic 93–115; BP diastolic 52–73
[2020-05-30] MEDS: PIPERACILLIN-TAZOB 3.375GM 100 ML IV SCH ×4 (00:07→18:29)
[2020-05-30] MEDS: HEPARIN DRIP/D5W 100UNITS/ML 250 ML IV SCH ×2 (01:02→16:20)
[2020-05-30] MEDS: PROPOFOL 100 ML IV SCH ×4 (04:46→21:35)
[2020-05-30 06:06] LABS: Hematocrit 36.4 % (41.0-53.0); Mean Corpuscular Hemoglobin 30.2 pg (28.0-32.0); Mean Corpuscular Hgb Conc. 32.9 g/dL (32.0-36.0); Mean Corpuscular Volume 91.7 fL (80.0-100.0); Platelet Count (auto) 355 10^3/uL (140-450); Red Blood Cells 3.97 10^6/uL (4.5-5.90); Red Cell Distribution Width 13.9 % (11.8-14.3); White Blood Cell 25.2 10^3/uL (4.4-10.8)
[2020-05-30 06:22] LABS: BUN/Creatinine Ratio 29.6; Calcium 7.5 mg/dL (8.5-10.1); Potassium 4.4 mmol/L (3.5-5.1)
[2020-05-30 06:30] LABS: CRP High Sensitivity 3.57 mg/dL (< 0.3)
[2020-05-30] MEDS: ACCU-CHEK COMFORT CURVE STRIP VI SCH ×4 (06:32→23:26)
[2020-05-30 06:33] LABS: INR 1.13 (0.9-1.15)
[2020-05-30] MEDS: InsuLIN REG 1unit/0.01ml Soln (100units/ml) SC SCH ×4 (06:33→23:27)
[2020-05-30 06:53] LABS: Band Neutrophils % (manual) 0; Basophils % (manual) 0 (0.0-2.0); Blast Cells 0; Eosinophils % (manual) 0 (0-7); Metamyelocytes % 0; Myelocytes % 0; Promyelocytes % 0; Reactive Lymphocytes 0
[2020-05-30] MEDS: MICAFUNGIN SODIUM 100 MG in SODIUM CHL 0.9% 100 ML IV SCH (08:55)
[2020-05-30 09:19] LABS: Lymphocytes % (manual) 4 (10.0-50.0); Monocytes % (manual) 3 (0-12)
[2020-05-30] MEDS: ZINC SULFATE 220mg CAP or TAB PO SCH (10:15)
[2020-05-30] MEDS: ASCORBIC ACID 1,000 MG TAB PO SCH (10:15)
[2020-05-30] MEDS: CHOLECALCIFEROL (VITD3) 1,000UNIT=25mCg TAB PO SCH (10:15)
[2020-05-30] MEDS: DexAMETHasone SOD PHOS 10MG/1ML VIAL INJ IV SCH ×2 (10:15→22:07)
[2020-05-30] MEDS: FAMOTIDINE (10MG/ML) 2ML VL IV SCH ×2 (10:15→22:07)
[2020-05-30] MEDS: CYCLOSPORINE MODIFIED PO SCH ×2 (10:15→22:08)
[2020-05-30] MEDS: FUROSEMIDE 40 MG/4 ML VIAL IV SCH (10:15)
[2020-05-30] MEDS: LINEZOLID 600MG/300ML 300 ML IV SCH ×2 (11:01→22:07)
[2020-05-30] MEDS: MIDAZOLAM DRIP 50 mg/50mL 50 ML IV SCH (11:10)
[2020-05-30] MEDS: fentaNYL Drip 2500mCg/250mlNS 250 ML IV SCH (15:00)
[2020-05-30] MEDS: NOREPINEPHRINE 8 MG/250ML KIT 250 ML IV SCH (16:00)
[2020-05-30] MEDS: INSULIN LANTUS (GLARGINE) 1 /0.01ml (100units/ml) SC SCH (23:27)
[2020-05-31] VITALS (98 sets, daily range): BP systolic 81–143; BP diastolic 54–95
[2020-05-31] MEDS: PIPERACILLIN-TAZOB 3.375GM 100 ML IV SCH ×5 (00:44→23:40)
[2020-05-31] MEDS: MIDAZOLAM DRIP 50 mg/50mL 50 ML IV SCH ×3 (00:45→23:41)
[2020-05-31] MEDS: PROPOFOL 100 ML IV SCH ×3 (02:34→21:25)
[2020-05-31] MEDS: NOREPINEPHRINE 8 MG/250ML KIT 250 ML IV SCH (03:32)
[2020-05-31 05:47] LABS: Basophils # (auto) 0.2 10 ^3/uL (0-0.2); Basophils % (auto) 0.8 % (0.0-2.0); Eosinophils # (auto) 0 10 ^3/uL (0-0.8); Eosinophils % (auto) 0.1 % (0.0-7.0); Hematocrit 38.4 % (41.0-53.0); Hemoglobin 12.6 g/dL (13.5-17.5); Mean Corpuscular Hemoglobin 30.1 pg (28.0-32.0); Mean Corpuscular Hgb Conc. 32.8 g/dL (32.0-36.0); Mean Corpuscular Volume 91.7 fL (80.0-100.0); Monocytes # (auto) 1.4 10 ^3/uL (0-1.3); Monocytes % (auto) 5.8 % (0.0-12.0); Neutrophils # (auto) 22.3 10 ^3/uL (1.6-8.6); Neutrophils % (auto) 89.3 % (37.0-80.0); Nucleated Red Blood Cells % 0.1 %; Platelet Count (auto) 332 10^3/uL (140-450); Red Blood Cells 4.19 10^6/uL (4.5-5.90); Red Cell Distribution Width 14.5 % (11.8-14.3)
[2020-05-31 05:59] LABS: Calcium 7.9 mg/dL (8.5-10.1); Potassium 4.4 mmol/L (3.5-5.1)
[2020-05-31] MEDS: ACCU-CHEK COMFORT CURVE STRIP VI SCH ×4 (05:59→23:38)
[2020-05-31] MEDS: InsuLIN REG 1unit/0.01ml Soln (100units/ml) SC SCH ×4 (06:00→23:39)
[2020-05-31 06:02] LABS: BUN/Creatinine Ratio 38.9
[2020-05-31] MEDS: LINEZOLID 600MG/300ML 300 ML IV SCH ×2 (10:00→21:23)
[2020-05-31] MEDS: MICAFUNGIN SODIUM 100 MG in SODIUM CHL 0.9% 100 ML IV SCH (10:36)
[2020-05-31] MEDS: DexAMETHasone SOD PHOS 10MG/1ML VIAL INJ IV SCH ×2 (10:36→21:23)
[2020-05-31] MEDS: FAMOTIDINE (10MG/ML) 2ML VL IV SCH ×2 (10:37→21:23)
[2020-05-31] MEDS: ZINC SULFATE 220mg CAP or TAB PO SCH (10:37)
[2020-05-31] MEDS: FUROSEMIDE 40 MG/4 ML VIAL IV SCH (10:37)
[2020-05-31] MEDS: CYCLOSPORINE MODIFIED PO SCH ×2 (10:37→21:23)
[2020-05-31] MEDS: CHOLECALCIFEROL (VITD3) 1,000UNIT=25mCg TAB PO SCH (10:38)
[2020-05-31] MEDS: ASCORBIC ACID 1,000 MG TAB PO SCH (10:38)
[2020-05-31] MEDS ORDERED: HEPARIN SODIUM (PORCINE) 5000 UNITS/ML 1ML VIAL ONE (10:53)
[2020-05-31 11:26] LABS: INR 1.11 (0.9-1.15); Partial Thromboplastin Time 22.8 sec (23.0-31.2)
[2020-05-31] MEDS: HEPARIN DRIP/D5W 100UNITS/ML 250 ML IV SCH (12:00)
[2020-05-31] MEDS ORDERED: HEPARIN SODIUM (PORCINE) 5000 UNITS/ML 1ML VIAL IV ONE (12:15)
[2020-05-31 19:21] LABS: INR 1.18 (0.9-1.15); Partial Thromboplastin Time 63.1 sec (23.0-31.2)
[2020-05-31] MEDS: fentaNYL Drip 2500mCg/250mlNS 250 ML IV SCH (21:25)
[2020-05-31] MEDS: INSULIN LANTUS (GLARGINE) 1 /0.01ml (100units/ml) SC SCH (23:38)
[2020-06-01] VITALS (97 sets, daily range): BP systolic 82–196; BP diastolic 48–98
[2020-06-01] MEDS: HEPARIN DRIP/D5W 100UNITS/ML 250 ML IV SCH ×2 (01:14→15:24)
[2020-06-01] MEDS: PROPOFOL 100 ML IV SCH ×3 (01:16→20:44)
[2020-06-01 02:11] LABS: Hematocrit 38.4 % (41.0-53.0); Hemoglobin 12.7 g/dL (13.5-17.5); Mean Corpuscular Hemoglobin 30.5 pg (28.0-32.0); Mean Corpuscular Volume 92.4 fL (80.0-100.0); Platelet Count (auto) 344 10^3/uL (140-450); Red Blood Cells 4.15 10^6/uL (4.5-5.90); Red Cell Distribution Width 14.1 % (11.8-14.3)
[2020-06-01 02:20] LABS: White Blood Cell 32.5 10^3/uL (4.4-10.8)
[2020-06-01 02:22] LABS: Basophils % (manual) 0 (0.0-2.0); Promyelocytes % 0; Reactive Lymphocytes 0
[2020-06-01 02:30] LABS: INR 1.14 (0.9-1.15); Partial Thromboplastin Time 63.5 sec (23.0-31.2)
[2020-06-01 02:32] LABS: Albumin 2.1 g/dL (3.4-5.0); BUN/Creatinine Ratio 37.3; Magnesium 2.5 mg/dL (1.6-2.6); Potassium 4.1 mmol/L (3.5-5.1)
[2020-06-01 02:35] LABS: Bilirubin, Total 0.8 mg/dL (0.2-1.0)
[2020-06-01 02:50] LABS: Band Neutrophils % (manual) 19; Blast Cells 1; Eosinophils % (manual) 1 (0-7); Lymphocytes % (manual) 2 (10.0-50.0); Metamyelocytes % 2; Monocytes % (manual) 4 (0-12); Myelocytes % 1
[2020-06-01] MEDS: ACCU-CHEK COMFORT CURVE STRIP VI SCH ×4 (05:07→23:17)
[2020-06-01] MEDS: PIPERACILLIN-TAZOB 3.375GM 100 ML IV SCH ×3 (05:07→18:18)
[2020-06-01] MEDS: InsuLIN REG 1unit/0.01ml Soln (100units/ml) SC SCH ×4 (06:36→23:18)
[2020-06-01] MEDS: ALBUTEROL SULF 2.5 MG/0.5ML(0.5%) NEB SOLN NEB PRN (07:30)
[2020-06-01] MEDS: MIDAZOLAM DRIP 50 mg/50mL 50 ML IV SCH ×4 (07:44→19:32)
[2020-06-01] MEDS: FAMOTIDINE (10MG/ML) 2ML VL IV SCH ×2 (09:38→23:15)
[2020-06-01] MEDS: MICAFUNGIN SODIUM 100 MG in SODIUM CHL 0.9% 100 ML IV SCH (09:38)
[2020-06-01] MEDS: FUROSEMIDE 40 MG/4 ML VIAL IV SCH (09:38)
[2020-06-01] MEDS: DexAMETHasone SOD PHOS 10MG/1ML VIAL INJ IV SCH ×2 (09:38→23:10)
[2020-06-01] MEDS: CHOLECALCIFEROL (VITD3) 1,000UNIT=25mCg TAB PO SCH (09:39)
[2020-06-01] MEDS: ASCORBIC ACID 1,000 MG TAB PO SCH (09:39)
[2020-06-01] MEDS: ZINC SULFATE 220mg CAP or TAB PO SCH (09:39)
[2020-06-01 10:04] LABS: INR 1.17 (0.9-1.15); Partial Thromboplastin Time 67.5 sec (23.0-31.2)
[2020-06-01] MEDS: CYCLOSPORINE MODIFIED PO SCH ×2 (10:55→22:00)
[2020-06-01] MEDS: fentaNYL Drip 2500mCg/250mlNS 250 ML IV SCH (11:25)
[2020-06-01] MEDS: LINEZOLID 600MG/300ML 300 ML IV SCH ×2 (11:45→23:15)
[2020-06-01] MEDS: NOREPINEPHRINE 8 MG/250ML KIT 250 ML IV SCH (16:00)
[2020-06-01] MEDS: INSULIN LANTUS (GLARGINE) 1 /0.01ml (100units/ml) SC SCH (23:17)
[2020-06-02] VITALS (70 sets, daily range): BP systolic 88–140; BP diastolic 54–92
[2020-06-02] MEDS: MIDAZOLAM DRIP 50 mg/50mL 50 ML IV SCH ×5 (00:48→21:01)
[2020-06-02] MEDS: PIPERACILLIN-TAZOB 3.375GM 100 ML IV SCH ×3 (00:49→18:24)
[2020-06-02] MEDS: PROPOFOL 100 ML IV SCH ×5 (01:55→20:19)
[2020-06-02] MEDS: fentaNYL Drip 2500mCg/250mlNS 250 ML IV SCH ×2 (01:57→16:30)
[2020-06-02] MEDS: InsuLIN REG 1unit/0.01ml Soln (100units/ml) SC SCH ×3 (07:00→18:00)
[2020-06-02] MEDS: ACCU-CHEK COMFORT CURVE STRIP VI SCH ×4 (07:00→22:00)
[2020-06-02] MEDS: HEPARIN DRIP/D5W 100UNITS/ML 250 ML IV SCH ×2 (08:09→22:52)
[2020-06-02 09:07] LABS: INR 1.13 (0.9-1.15); Partial Thromboplastin Time 59.2 sec (23.0-31.2)
[2020-06-02] MEDS ORDERED: MAGNESIUM SULFATE 1GM/100ML 100 ML IV SCH (10:00)
[2020-06-02] MEDS: MICAFUNGIN SODIUM 100 MG in SODIUM CHL 0.9% 100 ML IV SCH (10:06)
[2020-06-02] MEDS: DexAMETHasone SOD PHOS 10MG/1ML VIAL INJ IV SCH (10:06)
[2020-06-02] MEDS: FUROSEMIDE 40 MG/4 ML VIAL IV SCH (10:11)
[2020-06-02 10:26] LABS: Hematocrit 41.6 % (41.0-53.0); Hemoglobin 13.1 g/dL (13.5-17.5); Mean Corpuscular Hemoglobin 30.3 pg (28.0-32.0); Mean Corpuscular Hgb Conc. 31.5 g/dL (32.0-36.0); Mean Corpuscular Volume 96.2 fL (80.0-100.0); Platelet Count (auto) 370 10^3/uL (140-450); Red Blood Cells 4.32 10^6/uL (4.5-5.90); Red Cell Distribution Width 15.6 % (11.8-14.3)
[2020-06-02] MEDS: FAMOTIDINE (10MG/ML) 2ML VL IV SCH ×2 (10:40→22:00)
[2020-06-02] MEDS: ZINC SULFATE 220mg CAP or TAB PO SCH (10:40)
[2020-06-02] MEDS: CYCLOSPORINE MODIFIED PO SCH ×2 (10:40→22:00)
[2020-06-02 10:41] LABS: Basophils % (manual) 0 (0.0-2.0); Blast Cells 0; Eosinophils % (manual) 0 (0-7); Promyelocytes % 0; Reactive Lymphocytes 0
[2020-06-02] MEDS: CHOLECALCIFEROL (VITD3) 1,000UNIT=25mCg TAB PO SCH (10:41)
[2020-06-02] MEDS: ASCORBIC ACID 1,000 MG TAB PO SCH (10:41)
[2020-06-02] MEDS: LINEZOLID 600MG/300ML 300 ML IV SCH ×2 (11:18→22:00)
[2020-06-02 12:18] LABS: BUN/Creatinine Ratio 21.6; Bilirubin, Total 0.4 mg/dL (0.2-1.0); Total Protein 6.5 g/dL (6.4-8.2)
[2020-06-02 14:24] LABS: Band Neutrophils % (manual) 15; Lymphocytes % (manual) 5 (10.0-50.0); Metamyelocytes % 1; Monocytes % (manual) 3 (0-12); Myelocytes % 1
[2020-06-02] MEDS: NOREPINEPHRINE 8 MG/250ML KIT 250 ML IV SCH (16:00)
[2020-06-02] MEDS: INSULIN LANTUS (GLARGINE) 1 /0.01ml (100units/ml) SC SCH (22:00)
[2020-06-03] VITALS (93 sets, daily range): BP systolic 86–170; BP diastolic 37–96
[2020-06-03] MEDS: InsuLIN REG 1unit/0.01ml Soln (100units/ml) SC SCH ×4 (00:38→17:40)
[2020-06-03] MEDS: ACCU-CHEK COMFORT CURVE STRIP VI SCH ×4 (00:38→22:00)
[2020-06-03] MEDS: PIPERACILLIN-TAZOB 3.375GM 100 ML IV SCH ×4 (00:39→18:48)
[2020-06-03] MEDS: PROPOFOL 100 ML IV SCH ×3 (00:51→09:52)
[2020-06-03] MEDS: MIDAZOLAM DRIP 50 mg/50mL 50 ML IV SCH ×4 (01:41→23:03)
[2020-06-03 04:41] LABS: Basophils # (auto) 0.1 10 ^3/uL (0-0.2); Basophils % (auto) 0.4 % (0.0-2.0); Eosinophils # (auto) 0.1 10 ^3/uL (0-0.8); Eosinophils % (auto) 0.4 % (0.0-7.0); Hematocrit 35.3 % (41.0-53.0); Hemoglobin 11.6 g/dL (13.5-17.5); Lymphocytes # (auto) 1.3 10 ^3/uL (0.4-5.4); Lymphocytes % (auto) 5.7 % (10.0-50.0); Mean Corpuscular Hemoglobin 30.2 pg (28.0-32.0); Mean Corpuscular Hgb Conc. 32.8 g/dL (32.0-36.0); Mean Corpuscular Volume 91.8 fL (80.0-100.0); Monocytes # (auto) 1.4 10 ^3/uL (0-1.3); Monocytes % (auto) 6.2 % (0.0-12.0); Neutrophils # (auto) 20.2 10 ^3/uL (1.6-8.6); Neutrophils % (auto) 87.3 % (37.0-80.0); Red Blood Cells 3.84 10^6/uL (4.5-5.90); Red Cell Distribution Width 14.3 % (11.8-14.3); White Blood Cell 23.1 10^3/uL (4.4-10.8)
[2020-06-03 04:42] LABS: Platelet Count (auto) 385 10^3/uL (140-450)
[2020-06-03 05:11] LABS: INR 1.13 (0.9-1.15)
[2020-06-03] MEDS: fentaNYL Drip 2500mCg/250mlNS 250 ML IV SCH (06:42)
[2020-06-03] MEDS: DexAMETHasone SOD PHOS 10MG/1ML VIAL INJ IV SCH (08:59)
[2020-06-03] MEDS: FUROSEMIDE 40 MG/4 ML VIAL IV SCH (09:00)
[2020-06-03] MEDS: FAMOTIDINE (10MG/ML) 2ML VL IV SCH ×2 (09:00→23:03)
[2020-06-03] MEDS: ASCORBIC ACID 1,000 MG TAB PO SCH (09:01)
[2020-06-03] MEDS: ZINC SULFATE 220mg CAP or TAB PO SCH (09:01)
[2020-06-03] MEDS: CHOLECALCIFEROL (VITD3) 1,000UNIT=25mCg TAB PO SCH (09:02)
[2020-06-03] MEDS: LINEZOLID 600MG/300ML 300 ML IV SCH ×2 (10:00→23:03)
[2020-06-03] MEDS: MICAFUNGIN SODIUM 100 MG in SODIUM CHL 0.9% 100 ML IV SCH (10:22)
[2020-06-03] MEDS: CYCLOSPORINE MODIFIED PO SCH (10:23)
[2020-06-03] MEDS: HEPARIN DRIP/D5W 100UNITS/ML 250 ML IV SCH (13:09)
[2020-06-03] MEDS: NOREPINEPHRINE 8 MG/250ML KIT 250 ML IV SCH (16:00)
[2020-06-03] MEDS: INSULIN LANTUS (GLARGINE) 1 /0.01ml (100units/ml) SC SCH (23:04)
[2020-06-04] VITALS (96 sets, daily range): BP systolic 82–163; BP diastolic 49–95
[2020-06-04] MEDS: MIDAZOLAM DRIP 50 mg/50mL 50 ML IV SCH ×2 (01:15→06:22)
[2020-06-04] MEDS: PROPOFOL 100 ML IV SCH ×2 (01:15→07:02)
[2020-06-04] MEDS: PIPERACILLIN-TAZOB 3.375GM 100 ML IV SCH ×4 (01:34→18:13)
[2020-06-04] MEDS: HEPARIN DRIP/D5W 100UNITS/ML 250 ML IV SCH ×2 (01:36→16:23)
[2020-06-04] MEDS: InsuLIN REG 1unit/0.01ml Soln (100units/ml) SC SCH ×5 (01:37→23:55)
[2020-06-04 06:51] LABS: Basophils # (auto) 0.1 10 ^3/uL (0-0.2); Basophils % (auto) 0.3 % (0.0-2.0); Eosinophils # (auto) 0.2 10 ^3/uL (0-0.8); Eosinophils % (auto) 0.8 % (0.0-7.0); Hematocrit 35.8 % (41.0-53.0); Hemoglobin 11.8 g/dL (13.5-17.5); Lymphocytes # (auto) 2.7 10 ^3/uL (0.4-5.4); Lymphocytes % (auto) 12.8 % (10.0-50.0); Mean Corpuscular Hemoglobin 30.5 pg (28.0-32.0); Mean Corpuscular Hgb Conc. 33.1 g/dL (32.0-36.0); Mean Corpuscular Volume 92.2 fL (80.0-100.0); Monocytes # (auto) 1.4 10 ^3/uL (0-1.3); Monocytes % (auto) 6.4 % (0.0-12.0); Neutrophils # (auto) 17.1 10 ^3/uL (1.6-8.6); Neutrophils % (auto) 79.7 % (37.0-80.0); Platelet Count (auto) 389 10^3/uL (140-450); Red Blood Cells 3.88 10^6/uL (4.5-5.90); White Blood Cell 21.4 10^3/uL (4.4-10.8)
[2020-06-04] MEDS: ACCU-CHEK COMFORT CURVE STRIP VI SCH ×4 (07:00→22:00)
[2020-06-04 07:02] LABS: INR 1.08 (0.9-1.15); Partial Thromboplastin Time 57.2 sec (23.0-31.2)
[2020-06-04 07:10] LABS: BUN/Creatinine Ratio 18.8
[2020-06-04] MEDS: fentaNYL Drip 2500mCg/250mlNS 250 ML IV SCH (07:34)
[2020-06-04] MEDS: FAMOTIDINE (10MG/ML) 2ML VL IV SCH ×2 (08:58→22:00)
[2020-06-04] MEDS: FUROSEMIDE 40 MG/4 ML VIAL IV SCH (08:58)
[2020-06-04] MEDS: DexAMETHasone SOD PHOS 10MG/1ML VIAL INJ IV SCH (08:58)
[2020-06-04] MEDS: LINEZOLID 600MG/300ML 300 ML IV SCH ×2 (08:59→22:00)
[2020-06-04] MEDS: CHOLECALCIFEROL (VITD3) 1,000UNIT=25mCg TAB PO SCH (08:59)
[2020-06-04] MEDS: ZINC SULFATE 220mg CAP or TAB PO SCH (08:59)
[2020-06-04] MEDS: ASCORBIC ACID 1,000 MG TAB PO SCH (08:59)
[2020-06-04] MEDS: MICAFUNGIN SODIUM 100 MG in SODIUM CHL 0.9% 100 ML IV SCH (09:00)
[2020-06-04] MEDS: ERGOCALCIFEROL 50,000 UNIT(1.25MG) CAP PO SCH (15:00)
[2020-06-04] MEDS: NOREPINEPHRINE 8 MG/250ML KIT 250 ML IV SCH (16:00)
[2020-06-04] MEDS ORDERED: POTASSIUM EFFERVESENT TAB 25 MEQ PO ONE (19:15)
[2020-06-04] MEDS: INSULIN LANTUS (GLARGINE) 1 /0.01ml (100units/ml) SC SCH (22:00)
[2020-06-05] VITALS (95 sets, daily range): BP systolic 91–145; BP diastolic 49–92
[2020-06-05] MEDS: ALBUTEROL SULF 2.5 MG/0.5ML(0.5%) NEB SOLN NEB PRN (00:44)
[2020-06-05 03:51] LABS: Basophils # (auto) 0 10 ^3/uL (0-0.2); Basophils % (auto) 0.2 % (0.0-2.0); Eosinophils # (auto) 0 10 ^3/uL (0-0.8); Hematocrit 34.5 % (41.0-53.0); Hemoglobin 11.4 g/dL (13.5-17.5); Lymphocytes # (auto) 1.2 10 ^3/uL (0.4-5.4); Lymphocytes % (auto) 6.2 % (10.0-50.0); Mean Corpuscular Hemoglobin 30.4 pg (28.0-32.0); Mean Corpuscular Volume 91.9 fL (80.0-100.0); Monocytes # (auto) 1.2 10 ^3/uL (0-1.3); Monocytes % (auto) 6.2 % (0.0-12.0); Neutrophils # (auto) 17.2 10 ^3/uL (1.6-8.6); Neutrophils % (auto) 87.4 % (37.0-80.0); Platelet Count (auto) 375 10^3/uL (140-450); Red Blood Cells 3.75 10^6/uL (4.5-5.90); Red Cell Distribution Width 14.1 % (11.8-14.3); White Blood Cell 19.7 10^3/uL (4.4-10.8)
[2020-06-05 04:11] LABS: Magnesium 2.4 mg/dL (1.6-2.6)
[2020-06-05 04:16] LABS: INR 1.12 (0.9-1.15); Partial Thromboplastin Time 66.6 sec (23.0-31.2)
[2020-06-05] MEDS: PIPERACILLIN-TAZOB 3.375GM 100 ML IV SCH ×5 (06:08→23:47)
[2020-06-05] MEDS: InsuLIN REG 1unit/0.01ml Soln (100units/ml) SC SCH ×4 (06:09→23:15)
[2020-06-05] MEDS: HEPARIN DRIP/D5W 100UNITS/ML 250 ML IV SCH (06:10)
[2020-06-05] MEDS: MIDAZOLAM DRIP 50 mg/50mL 50 ML IV SCH ×6 (06:11→23:46)
[2020-06-05] MEDS: PROPOFOL 100 ML IV SCH ×3 (06:12→23:46)
[2020-06-05] MEDS: ACCU-CHEK COMFORT CURVE STRIP VI SCH ×4 (08:00→22:00)
[2020-06-05] MEDS: fentaNYL Drip 2500mCg/250mlNS 250 ML IV SCH ×2 (09:02→23:40)
[2020-06-05] MEDS: MICAFUNGIN SODIUM 100 MG in SODIUM CHL 0.9% 100 ML IV SCH (10:12)
[2020-06-05] MEDS: FUROSEMIDE 40 MG/4 ML VIAL IV SCH (11:23)
[2020-06-05] MEDS: DexAMETHasone SOD PHOS 10MG/1ML VIAL INJ IV SCH (11:23)
[2020-06-05] MEDS: ZINC SULFATE 220mg CAP or TAB PO SCH (11:24)
[2020-06-05] MEDS: CHOLECALCIFEROL (VITD3) 1,000UNIT=25mCg TAB PO SCH (11:24)
[2020-06-05] MEDS: FAMOTIDINE (10MG/ML) 2ML VL IV SCH ×2 (11:24→22:00)
[2020-06-05] MEDS: ASCORBIC ACID 1,000 MG TAB PO SCH (11:24)
[2020-06-05] MEDS: LINEZOLID 600MG/300ML 300 ML IV SCH ×2 (11:27→22:00)
[2020-06-05] MEDS: NOREPINEPHRINE 8 MG/250ML KIT 250 ML IV SCH (16:00)
[2020-06-05] MEDS: INSULIN LANTUS (GLARGINE) 1 /0.01ml (100units/ml) SC SCH (22:00)
[2020-06-06] VITALS (93 sets, daily range): BP systolic 96–131; BP diastolic 54–86
[2020-06-06 04:00] LABS: Basophils # (auto) 0 10 ^3/uL (0-0.2); Basophils % (auto) 0.2 % (0.0-2.0); Eosinophils # (auto) 0.1 10 ^3/uL (0-0.8); Eosinophils % (auto) 0.3 % (0.0-7.0); Hematocrit 33.7 % (41.0-53.0); Hemoglobin 11.1 g/dL (13.5-17.5); Lymphocytes # (auto) 1.9 10 ^3/uL (0.4-5.4); Lymphocytes % (auto) 7.8 % (10.0-50.0); Mean Corpuscular Hemoglobin 30.4 pg (28.0-32.0); Mean Corpuscular Hgb Conc. 32.9 g/dL (32.0-36.0); Mean Corpuscular Volume 92.3 fL (80.0-100.0); Monocytes # (auto) 1.3 10 ^3/uL (0-1.3); Monocytes % (auto) 5.4 % (0.0-12.0); Neutrophils # (auto) 21.2 10 ^3/uL (1.6-8.6); Neutrophils % (auto) 86.3 % (37.0-80.0); Platelet Count (auto) 347 10^3/uL (140-450); Red Blood Cells 3.66 10^6/uL (4.5-5.90); Red Cell Distribution Width 14.4 % (11.8-14.3); White Blood Cell 24.6 10^3/uL (4.4-10.8)
[2020-06-06 04:34] LABS: INR 1.09 (0.9-1.15); Partial Thromboplastin Time 66.8 sec (23.0-31.2)
[2020-06-06 04:36] LABS: CRP High Sensitivity 7.09 mg/dL (< 0.3)
[2020-06-06] MEDS: PROPOFOL 100 ML IV SCH ×4 (05:56→22:10)
[2020-06-06] MEDS: InsuLIN REG 1unit/0.01ml Soln (100units/ml) SC SCH ×3 (06:03→18:16)
[2020-06-06] MEDS: ACCU-CHEK COMFORT CURVE STRIP VI SCH ×4 (06:03→21:28)
[2020-06-06] MEDS: PIPERACILLIN-TAZOB 3.375GM 100 ML IV SCH ×2 (06:24→12:00)
[2020-06-06] MEDS: MICAFUNGIN SODIUM 100 MG in SODIUM CHL 0.9% 100 ML IV SCH (09:00)
[2020-06-06] MEDS: MIDAZOLAM DRIP 50 mg/50mL 50 ML IV SCH ×2 (09:45→21:23)
[2020-06-06] MEDS: DexAMETHasone SOD PHOS 10MG/1ML VIAL INJ IV SCH (09:47)
[2020-06-06] MEDS: FUROSEMIDE 40 MG/4 ML VIAL IV SCH (09:48)
[2020-06-06] MEDS: ZINC SULFATE 220mg CAP or TAB PO SCH (09:48)
[2020-06-06] MEDS: CHOLECALCIFEROL (VITD3) 1,000UNIT=25mCg TAB PO SCH (09:48)
[2020-06-06] MEDS: ASCORBIC ACID 1,000 MG TAB PO SCH (09:48)
[2020-06-06] MEDS: FAMOTIDINE (10MG/ML) 2ML VL IV SCH ×2 (09:48→20:15)
[2020-06-06] MEDS: LINEZOLID 600MG/300ML 300 ML IV SCH ×2 (10:00→23:30)
[2020-06-06] MEDS: HEPARIN DRIP/D5W 100UNITS/ML 250 ML IV SCH ×2 (10:21→10:54)
[2020-06-06] MEDS: fentaNYL Drip 2500mCg/250mlNS 250 ML IV SCH (13:00)
[2020-06-06] MEDS ORDERED: FLORASTOR (S. BOULARDII) 250 MG CAP PO ONE (14:40)
[2020-06-06] MEDS: NOREPINEPHRINE 8 MG/250ML KIT 250 ML IV SCH (15:25)
[2020-06-06] MEDS: CEFEPIME 1 GM in SODIUM CHL 0.9% 50 ML IV SCH (20:15)
[2020-06-06] MEDS: INSULIN LANTUS (GLARGINE) 1 /0.01ml (100units/ml) SC SCH (21:27)
[2020-06-07] VITALS (101 sets, daily range): BP systolic 82–142; BP diastolic 47–82
[2020-06-07] MEDS: HEPARIN DRIP/D5W 100UNITS/ML 250 ML IV SCH (00:04)
[2020-06-07] MEDS: MIDAZOLAM DRIP 50 mg/50mL 50 ML IV SCH ×5 (02:46→23:44)
[2020-06-07] MEDS: PROPOFOL 100 ML IV SCH ×5 (05:00→20:14)
[2020-06-07] MEDS: CEFEPIME 1 GM in SODIUM CHL 0.9% 50 ML IV SCH ×3 (05:40→22:54)
[2020-06-07] MEDS: InsuLIN REG 1unit/0.01ml Soln (100units/ml) SC SCH ×4 (05:49→18:00)
[2020-06-07] MEDS: ACCU-CHEK COMFORT CURVE STRIP VI SCH ×4 (05:49→22:00)
[2020-06-07] MEDS: NOREPINEPHRINE 8 MG/250ML KIT 250 ML IV SCH (06:00)
[2020-06-07 06:01] LABS: Hematocrit 32.9 % (41.0-53.0); Hemoglobin 10.9 g/dL (13.5-17.5); Mean Corpuscular Hemoglobin 30.8 pg (28.0-32.0); Mean Corpuscular Hgb Conc. 33.1 g/dL (32.0-36.0); Platelet Count (auto) 339 10^3/uL (140-450); Red Blood Cells 3.54 10^6/uL (4.5-5.90); Red Cell Distribution Width 14.1 % (11.8-14.3); White Blood Cell 22.1 10^3/uL (4.4-10.8)
[2020-06-07 06:12] LABS: INR 1.04 (0.9-1.15); Partial Thromboplastin Time 63.6 sec (23.0-31.2)
[2020-06-07 06:21] LABS: Potassium 3.8 mmol/L (3.5-5.1)
[2020-06-07 06:34] LABS: Albumin 2.1 g/dL (3.4-5.0); Bilirubin, Total 0.3 mg/dL (0.2-1.0); Calcium 8.3 mg/dL (8.5-10.1)
[2020-06-07 06:47] LABS: Band Neutrophils % (manual) 0; Basophils % (manual) 0 (0.0-2.0); Blast Cells 0; Metamyelocytes % 0; Myelocytes % 0; Promyelocytes % 0; Reactive Lymphocytes 0
[2020-06-07 08:30] LABS: Eosinophils % (manual) 3 (0-7); Lymphocytes % (manual) 19 (10.0-50.0); Monocytes % (manual) 4 (0-12)
[2020-06-07] MEDS: MICAFUNGIN SODIUM 100 MG in SODIUM CHL 0.9% 100 ML IV SCH (09:00)
[2020-06-07] MEDS: CHOLECALCIFEROL (VITD3) 1,000UNIT=25mCg TAB PO SCH (10:00)
[2020-06-07] MEDS: LINEZOLID 600MG/300ML 300 ML IV SCH ×2 (10:00→20:46)
[2020-06-07] MEDS: FUROSEMIDE 40 MG/4 ML VIAL IV SCH (10:00)
[2020-06-07] MEDS: FAMOTIDINE (10MG/ML) 2ML VL IV SCH ×2 (10:00→20:46)
[2020-06-07] MEDS: FLORASTOR (S. BOULARDII) 250 MG CAP PO SCH (10:00)
[2020-06-07] MEDS: ZINC SULFATE 220mg CAP or TAB PO SCH (10:00)
[2020-06-07] MEDS: ASCORBIC ACID 1,000 MG TAB PO SCH (10:00)
[2020-06-07] MEDS: fentaNYL Drip 2500mCg/250mlNS 250 ML IV SCH ×2 (11:45)
[2020-06-07] MEDS: ACETYLCYSTEINE 20%(200MG/ML) SOL 4ML NEB SCH ×2 (12:23→18:25)
[2020-06-07] MEDS: ALBUTEROL SULF 2.5 MG/0.5ML(0.5%) NEB SOLN NEB PRN ×2 (12:23→18:25)
[2020-06-07] MEDS: INSULIN LANTUS (GLARGINE) 1 /0.01ml (100units/ml) SC SCH (22:00)
[2020-06-08] VITALS (98 sets, daily range): BP systolic 84–151; BP diastolic 49–92
[2020-06-08] MEDS: fentaNYL Drip 2500mCg/250mlNS 250 ML IV SCH ×2 (00:34→13:50)
[2020-06-08] MEDS: Jevity 1.2 Cal/Fiber 1 Liter GT SCH (00:34)
[2020-06-08] MEDS: PROPOFOL 100 ML IV SCH ×7 (00:34→22:00)
[2020-06-08] MEDS: InsuLIN REG 1unit/0.01ml Soln (100units/ml) SC SCH ×4 (00:35→18:15)
[2020-06-08 03:03] LABS: Hemoglobin 10.9 g/dL (13.5-17.5); Mean Corpuscular Hemoglobin 30.9 pg (28.0-32.0); Mean Corpuscular Hgb Conc. 32.9 g/dL (32.0-36.0); Platelet Count (auto) 340 10^3/uL (140-450); Red Blood Cells 3.52 10^6/uL (4.5-5.90); Red Cell Distribution Width 14.6 % (11.8-14.3); White Blood Cell 18.6 10^3/uL (4.4-10.8)
[2020-06-08 03:09] LABS: Band Neutrophils % (manual) 0; Basophils % (manual) 0 (0.0-2.0); Blast Cells 0; Promyelocytes % 0; Reactive Lymphocytes 0
[2020-06-08 03:10] LABS: Calcium 8.4 mg/dL (8.5-10.1); Potassium 3.6 mmol/L (3.5-5.1)
[2020-06-08 03:11] LABS: BUN/Creatinine Ratio 21.1
[2020-06-08] MEDS: HEPARIN DRIP/D5W 100UNITS/ML 250 ML IV SCH ×2 (03:30→11:19)
[2020-06-08] MEDS: CEFEPIME 1 GM in SODIUM CHL 0.9% 50 ML IV SCH ×2 (04:53→13:59)
[2020-06-08] MEDS: MIDAZOLAM DRIP 50 mg/50mL 50 ML IV SCH ×4 (05:52→23:56)
[2020-06-08] MEDS: ACCU-CHEK COMFORT CURVE STRIP VI SCH ×4 (05:55→22:00)
[2020-06-08] MEDS: ALBUTEROL SULF 2.5 MG/0.5ML(0.5%) NEB SOLN NEB PRN ×3 (06:40→23:51)
[2020-06-08] MEDS: ACETYLCYSTEINE 20%(200MG/ML) SOL 4ML NEB SCH ×3 (06:40→22:40)
[2020-06-08 07:07] LABS: Eosinophils % (manual) 8 (0-7); Lymphocytes % (manual) 9 (10.0-50.0); Metamyelocytes % 1; Monocytes % (manual) 5 (0-12); Myelocytes % 3
[2020-06-08] MEDS: MICAFUNGIN SODIUM 100 MG in SODIUM CHL 0.9% 100 ML IV SCH (09:00)
[2020-06-08] MEDS: ASCORBIC ACID 1,000 MG TAB PO SCH (10:00)
[2020-06-08] MEDS: LINEZOLID 600MG/300ML 300 ML IV SCH ×2 (10:00→22:49)
[2020-06-08] MEDS: FAMOTIDINE (10MG/ML) 2ML VL IV SCH ×2 (10:00→22:58)
[2020-06-08] MEDS: ZINC SULFATE 220mg CAP or TAB PO SCH (10:00)
[2020-06-08] MEDS: FLORASTOR (S. BOULARDII) 250 MG CAP PO SCH (10:00)
[2020-06-08] MEDS: CHOLECALCIFEROL (VITD3) 1,000UNIT=25mCg TAB PO SCH (10:00)
[2020-06-08] MEDS: FUROSEMIDE 40 MG/4 ML VIAL IV SCH (10:00)
[2020-06-08] MEDS: NOREPINEPHRINE 8 MG/250ML KIT 250 ML IV SCH (15:30)
[2020-06-08] MEDS: ACETAMINOPHEN 500 MG TAB PO PRN (18:15)
[2020-06-08] MEDS: INSULIN LANTUS (GLARGINE) 1 /0.01ml (100units/ml) SC SCH (22:00)
[2020-06-08] MEDS: METOCLOPRAMIDE HCL 5MG/ml INJ 2ml VIAL IV SCH (22:58)
[2020-06-09] VITALS (100 sets, daily range): BP systolic 79–143; BP diastolic 39–93
[2020-06-09] MEDS: CEFEPIME 1 GM in SODIUM CHL 0.9% 50 ML IV SCH ×4 (00:01→23:22)
[2020-06-09] MEDS: fentaNYL Drip 2500mCg/250mlNS 250 ML IV SCH ×2 (03:11→15:01)
[2020-06-09] MEDS: NOREPINEPHRINE 8 MG/250ML KIT 250 ML IV SCH (03:12)
[2020-06-09] MEDS: ACETYLCYSTEINE 20%(200MG/ML) SOL 4ML NEB SCH ×5 (04:59→22:07)
[2020-06-09] MEDS: METOCLOPRAMIDE HCL 5MG/ml INJ 2ml VIAL IV SCH ×3 (06:00→21:30)
[2020-06-09] MEDS: InsuLIN REG 1unit/0.01ml Soln (100units/ml) SC SCH ×4 (06:00→17:51)
[2020-06-09 06:13] LABS: Hematocrit 32.9 % (41.0-53.0); Hemoglobin 10.8 g/dL (13.5-17.5); Mean Corpuscular Hemoglobin 30.7 pg (28.0-32.0); Mean Corpuscular Hgb Conc. 32.8 g/dL (32.0-36.0); Mean Corpuscular Volume 93.5 fL (80.0-100.0); Platelet Count (auto) 313 10^3/uL (140-450); Red Blood Cells 3.52 10^6/uL (4.5-5.90); Red Cell Distribution Width 14.4 % (11.8-14.3); White Blood Cell 17.8 10^3/uL (4.4-10.8)
[2020-06-09 06:22] LABS: BUN/Creatinine Ratio 17.4; Calcium 8.7 mg/dL (8.5-10.1); Potassium 3.8 mmol/L (3.5-5.1)
[2020-06-09 06:24] LABS: INR 1.07 (0.9-1.15); Partial Thromboplastin Time 59.2 sec (23.0-31.2)
[2020-06-09] MEDS: ACETAMINOPHEN 500 MG TAB PO PRN (06:30)
[2020-06-09 06:43] LABS: Basophils % (manual) 0 (0.0-2.0); Blast Cells 0; Metamyelocytes % 0; Promyelocytes % 0; Reactive Lymphocytes 0
[2020-06-09] MEDS: ACCU-CHEK COMFORT CURVE STRIP VI SCH ×3 (07:00→17:00)
[2020-06-09] MEDS: MIDAZOLAM DRIP 50 mg/50mL 50 ML IV SCH ×3 (07:21→17:52)
[2020-06-09] MEDS: HEPARIN DRIP/D5W 100UNITS/ML 250 ML IV SCH ×2 (07:24→22:27)
[2020-06-09] MEDS: ALBUTEROL SULF 2.5 MG/0.5ML(0.5%) NEB SOLN NEB PRN ×4 (08:10→22:07)
[2020-06-09] MEDS: MICAFUNGIN SODIUM 100 MG in SODIUM CHL 0.9% 100 ML IV SCH (08:36)
[2020-06-09 08:43] LABS: Band Neutrophils % (manual) 1; Eosinophils % (manual) 1 (0-7); Lymphocytes % (manual) 14 (10.0-50.0); Monocytes % (manual) 5 (0-12); Myelocytes % 1
[2020-06-09] MEDS: LINEZOLID 600MG/300ML 300 ML IV SCH ×2 (09:38→21:08)
[2020-06-09] MEDS: ZINC SULFATE 220mg CAP or TAB PO SCH (09:39)
[2020-06-09] MEDS: FAMOTIDINE (10MG/ML) 2ML VL IV SCH ×2 (09:39→21:30)
[2020-06-09] MEDS: FLORASTOR (S. BOULARDII) 250 MG CAP PO SCH (09:39)
[2020-06-09] MEDS: ASCORBIC ACID 1,000 MG TAB PO SCH (09:39)
[2020-06-09] MEDS: CHOLECALCIFEROL (VITD3) 1,000UNIT=25mCg TAB PO SCH (09:40)
[2020-06-09] MEDS: FUROSEMIDE 40 MG/4 ML VIAL IV SCH (09:40)
[2020-06-09] MEDS: PROPOFOL 100 ML IV SCH ×4 (10:21→21:33)
[2020-06-09] MEDS: INSULIN LANTUS (GLARGINE) 1 /0.01ml (100units/ml) SC SCH (21:57)
[2020-06-10] VITALS (103 sets, daily range): BP systolic 82–115; BP diastolic 37–65
[2020-06-10] MEDS: ACCU-CHEK COMFORT CURVE STRIP VI SCH ×5 (00:28→23:47)
[2020-06-10] MEDS: InsuLIN REG 1unit/0.01ml Soln (100units/ml) SC SCH ×5 (00:29→23:47)
[2020-06-10] MEDS: PROPOFOL 100 ML IV SCH ×5 (01:00→20:27)
[2020-06-10] MEDS: MIDAZOLAM DRIP 50 mg/50mL 50 ML IV SCH ×3 (01:49→23:12)
[2020-06-10 06:00] LABS: Calcium 8.1 mg/dL (8.5-10.1); Potassium 3.7 mmol/L (3.5-5.1)
[2020-06-10 06:01] LABS: Hematocrit 30.4 % (41.0-53.0); Hemoglobin 10.3 g/dL (13.5-17.5); Mean Corpuscular Hemoglobin 31.6 pg (28.0-32.0); Mean Corpuscular Hgb Conc. 33.9 g/dL (32.0-36.0); Mean Corpuscular Volume 93.4 fL (80.0-100.0); Platelet Count (auto) 289 10^3/uL (140-450); Red Blood Cells 3.26 10^6/uL (4.5-5.90); Red Cell Distribution Width 14.4 % (11.8-14.3); White Blood Cell 21.1 10^3/uL (4.4-10.8)
[2020-06-10 06:02] LABS: BUN/Creatinine Ratio 13.2
[2020-06-10] MEDS: CEFEPIME 1 GM in SODIUM CHL 0.9% 50 ML IV SCH ×3 (06:07→23:50)
[2020-06-10] MEDS: METOCLOPRAMIDE HCL 5MG/ml INJ 2ml VIAL IV SCH ×3 (06:07→21:44)
[2020-06-10 06:09] LABS: INR 1.08 (0.9-1.15); Partial Thromboplastin Time 47.6 sec (23.0-31.2)
[2020-06-10 06:13] LABS: Basophils % (manual) 0 (0.0-2.0); Blast Cells 0; Promyelocytes % 0; Reactive Lymphocytes 0
[2020-06-10] MEDS: ALBUTEROL SULF 2.5 MG/0.5ML(0.5%) NEB SOLN NEB PRN ×3 (06:46→18:51)
[2020-06-10] MEDS: ACETYLCYSTEINE 20%(200MG/ML) SOL 4ML NEB SCH ×3 (06:46→18:51)
[2020-06-10 06:48] LABS: Band Neutrophils % (manual) 27; Eosinophils % (manual) 6 (0-7); Lymphocytes % (manual) 15 (10.0-50.0); Metamyelocytes % 1; Monocytes % (manual) 3 (0-12); Myelocytes % 1
[2020-06-10] MEDS: fentaNYL Drip 2500mCg/250mlNS 250 ML IV SCH (07:41)
[2020-06-10] MEDS: LINEZOLID 600MG/300ML 300 ML IV SCH ×2 (10:08→21:44)
[2020-06-10] MEDS: FUROSEMIDE 40 MG/4 ML VIAL IV SCH (10:08)
[2020-06-10] MEDS: FAMOTIDINE (10MG/ML) 2ML VL IV SCH ×2 (10:08→21:44)
[2020-06-10] MEDS: FLORASTOR (S. BOULARDII) 250 MG CAP PO SCH (10:09)
[2020-06-10] MEDS: ZINC SULFATE 220mg CAP or TAB PO SCH (10:09)
[2020-06-10] MEDS: ASCORBIC ACID 1,000 MG TAB PO SCH (10:09)
[2020-06-10] MEDS: CHOLECALCIFEROL (VITD3) 1,000UNIT=25mCg TAB PO SCH (10:09)
[2020-06-10 12:52] LABS: INR 1.1 (0.9-1.15); Partial Thromboplastin Time 57.2 sec (23.0-31.2)
[2020-06-10] MEDS: HEPARIN DRIP/D5W 100UNITS/ML 250 ML IV SCH (13:05)
[2020-06-10] MEDS ORDERED: POTASSIUM CHL 20MEQ/100ML 100 ML IV ONE (16:00)
[2020-06-10 18:30] LABS: INR 1.12 (0.9-1.15); Partial Thromboplastin Time 48.6 sec (23.0-31.2)
[2020-06-10] MEDS: ACETAMINOPHEN 500 MG TAB PO PRN (20:26)
[2020-06-10] MEDS: NOREPINEPHRINE 8 MG/250ML KIT 250 ML IV SCH (21:43)
[2020-06-10] MEDS: INSULIN LANTUS (GLARGINE) 1 /0.01ml (100units/ml) SC SCH (22:37)
[2020-06-11] VITALS (92 sets, daily range): BP systolic 84–119; BP diastolic 32–72
[2020-06-11] MEDS: Jevity 1.2 Cal/Fiber 1 Liter GT SCH (01:01)
[2020-06-11 01:09] LABS: INR 1.18 (0.9-1.15); Partial Thromboplastin Time 49.8 sec (23.0-31.2)
[2020-06-11] MEDS: HEPARIN DRIP/D5W 100UNITS/ML 250 ML IV SCH ×2 (01:25→12:41)
[2020-06-11] MEDS: fentaNYL Drip 2500mCg/250mlNS 250 ML IV SCH ×2 (02:38→18:24)
[2020-06-11] MEDS: CEFEPIME 1 GM in SODIUM CHL 0.9% 50 ML IV SCH (05:04)
[2020-06-11] MEDS: ACETAMINOPHEN 500 MG TAB PO PRN ×2 (05:04→20:00)
[2020-06-11] MEDS: METOCLOPRAMIDE HCL 5MG/ml INJ 2ml VIAL IV SCH ×3 (05:46→21:05)
[2020-06-11] MEDS: InsuLIN REG 1unit/0.01ml Soln (100units/ml) SC SCH ×3 (05:47→18:26)
[2020-06-11] MEDS: ACCU-CHEK COMFORT CURVE STRIP VI SCH ×3 (06:06→17:00)
[2020-06-11] MEDS: MIDAZOLAM DRIP 50 mg/50mL 50 ML IV SCH ×3 (06:22→23:30)
[2020-06-11] MEDS: PROPOFOL 100 ML IV SCH ×5 (06:22→21:04)
[2020-06-11 07:05] LABS: Hematocrit 31.7 % (41.0-53.0); Hemoglobin 10.4 g/dL (13.5-17.5); Mean Corpuscular Hemoglobin 30.9 pg (28.0-32.0); Mean Corpuscular Hgb Conc. 32.8 g/dL (32.0-36.0); Mean Corpuscular Volume 94.3 fL (80.0-100.0); Platelet Count (auto) 288 10^3/uL (140-450); Red Blood Cells 3.36 10^6/uL (4.5-5.90); Red Cell Distribution Width 14.8 % (11.8-14.3); White Blood Cell 23.8 10^3/uL (4.4-10.8)
[2020-06-11] MEDS: ACETYLCYSTEINE 20%(200MG/ML) SOL 4ML NEB SCH ×4 (07:12→19:24)
[2020-06-11] MEDS: ALBUTEROL SULF 2.5 MG/0.5ML(0.5%) NEB SOLN NEB PRN ×3 (07:12→19:20)
[2020-06-11 07:19] LABS: Basophils % (manual) 0 (0.0-2.0); Blast Cells 0; Reactive Lymphocytes 0
[2020-06-11 07:30] LABS: INR 1.14 (0.9-1.15); Partial Thromboplastin Time 56.7 sec (23.0-31.2)
[2020-06-11 08:02] LABS: Potassium 4.1 mmol/L (3.5-5.1)
[2020-06-11 08:09] LABS: Band Neutrophils % (manual) 3; Eosinophils % (manual) 9 (0-7); Lymphocytes % (manual) 11 (10.0-50.0); Metamyelocytes % 3; Monocytes % (manual) 5 (0-12); Myelocytes % 2; Promyelocytes % 1
[2020-06-11 08:18] LABS: Albumin 1.9 g/dL (3.4-5.0); BUN/Creatinine Ratio 14.6; Bilirubin, Total 0.4 mg/dL (0.2-1.0); Calcium 7.9 mg/dL (8.5-10.1); Total Protein 5.4 g/dL (6.4-8.2)
[2020-06-11] MEDS: LINEZOLID 600MG/300ML 300 ML IV SCH ×2 (09:55→21:19)
[2020-06-11] MEDS: FUROSEMIDE 40 MG/4 ML VIAL IV SCH (09:55)
[2020-06-11] MEDS: FAMOTIDINE (10MG/ML) 2ML VL IV SCH ×2 (09:55→21:05)
[2020-06-11] MEDS: ZINC SULFATE 220mg CAP or TAB PO SCH (09:56)
[2020-06-11] MEDS: ASCORBIC ACID 1,000 MG TAB PO SCH (09:57)
[2020-06-11] MEDS: FLORASTOR (S. BOULARDII) 250 MG CAP PO SCH (09:57)
[2020-06-11] MEDS: CHOLECALCIFEROL (VITD3) 1,000UNIT=25mCg TAB PO SCH (09:57)
[2020-06-11] MEDS ORDERED: MICAFUNGIN SODIUM 100 MG in SODIUM CHL 0.9% 100 ML IV ONE (10:30)
[2020-06-11] MEDS ORDERED: PIPERACILLIN-TAZOB 3.375GM 100 ML IV ONE (12:30)
[2020-06-11 12:47] LABS: Urine Bacteria NONE SEEN /hpf (None Seen); Urine Blood 3+ /uL (Negative); Urine Hyaline Cast FEW /lpf (0 - 2); Urine Mucus FEW (None Seen); Urine Specific Gravity 1.016 (1.001-1.035); Urine WBC 273 /hpf (0 - 3)
[2020-06-11] MEDS: ERGOCALCIFEROL 50,000 UNIT(1.25MG) CAP PO SCH (13:47)
[2020-06-11 13:51] LABS: INR 1.13 (0.9-1.15); Partial Thromboplastin Time 58.3 sec (23.0-31.2)
[2020-06-11] MEDS: NOREPINEPHRINE 8 MG/250ML KIT 250 ML IV SCH (16:00)
[2020-06-11] MEDS: PIPERACILLIN-TAZOB 3.375GM 100 ML IV SCH ×2 (17:01→23:44)
[2020-06-11 18:40] LABS: INR 1.16 (0.9-1.15); Partial Thromboplastin Time 65.7 sec (23.0-31.2)
[2020-06-11] MEDS: INSULIN LANTUS (GLARGINE) 1 /0.01ml (100units/ml) SC SCH (22:00)
[2020-06-12] VITALS (98 sets, daily range): BP systolic 82–121; BP diastolic 44–72
[2020-06-12] MEDS: ACCU-CHEK COMFORT CURVE STRIP VI SCH ×5 (00:17→23:57)
[2020-06-12] MEDS: InsuLIN REG 1unit/0.01ml Soln (100units/ml) SC SCH ×4 (00:17→17:45)
[2020-06-12] MEDS: PROPOFOL 100 ML IV SCH ×8 (03:12→23:39)
[2020-06-12] MEDS: PIPERACILLIN-TAZOB 3.375GM 100 ML IV SCH ×4 (05:53→23:56)
[2020-06-12] MEDS: METOCLOPRAMIDE HCL 5MG/ml INJ 2ml VIAL IV SCH ×3 (05:53→22:00)
[2020-06-12 06:06] LABS: Hematocrit 33.2 % (41.0-53.0); Hemoglobin 11.2 g/dL (13.5-17.5); Mean Corpuscular Hemoglobin 31.6 pg (28.0-32.0); Mean Corpuscular Hgb Conc. 33.9 g/dL (32.0-36.0); Mean Corpuscular Volume 93.4 fL (80.0-100.0); Platelet Count (auto) 287 10^3/uL (140-450); Red Blood Cells 3.55 10^6/uL (4.5-5.90); Red Cell Distribution Width 15.1 % (11.8-14.3); White Blood Cell 28.3 10^3/uL (4.4-10.8)
[2020-06-12 06:16] LABS: Basophils % (manual) 0 (0.0-2.0); Blast Cells 0; Promyelocytes % 0; Reactive Lymphocytes 0
[2020-06-12 06:23] LABS: Albumin 1.9 g/dL (3.4-5.0); Calcium 8.3 mg/dL (8.5-10.1); Magnesium 1.8 mg/dL (1.6-2.6); Potassium 4.1 mmol/L (3.5-5.1)
[2020-06-12 06:27] LABS: Bilirubin, Total 0.7 mg/dL (0.2-1.0); Lactic Acid w/Reflex 2.7 mmol/L (0.4-2.0); Total Protein 6.6 g/dL (6.4-8.2)
[2020-06-12 06:39] LABS: INR 1.2 (0.9-1.15); Partial Thromboplastin Time 54.6 sec (23.0-31.2)
[2020-06-12] MEDS: ACETYLCYSTEINE 20%(200MG/ML) SOL 4ML NEB SCH ×4 (06:47→23:13)
[2020-06-12 06:55] LABS: Band Neutrophils % (manual) 38; Eosinophils % (manual) 4 (0-7); Lymphocytes % (manual) 7 (10.0-50.0); Metamyelocytes % 3; Monocytes % (manual) 7 (0-12); Myelocytes % 3
[2020-06-12] MEDS: MIDAZOLAM DRIP 50 mg/50mL 50 ML IV SCH ×3 (07:59→23:39)
[2020-06-12] MEDS ORDERED: MICAFUNGIN SODIUM 100 MG in SODIUM CHL 0.9% 100 ML IV SCH (10:00)
[2020-06-12] MEDS ORDERED: MEPERIDINE HCL (25 MG/ML) 1ML VIAL IM PRN (10:15)
[2020-06-12] MEDS: LINEZOLID 600MG/300ML 300 ML IV SCH (10:21)
[2020-06-12] MEDS: FAMOTIDINE (10MG/ML) 2ML VL IV SCH ×2 (10:21→22:00)
[2020-06-12] MEDS: FUROSEMIDE 40 MG/4 ML VIAL IV SCH (10:21)
[2020-06-12] MEDS: ZINC SULFATE 220mg CAP or TAB PO SCH (10:22)
[2020-06-12] MEDS: CHOLECALCIFEROL (VITD3) 1,000UNIT=25mCg TAB PO SCH (10:22)
[2020-06-12] MEDS: FLORASTOR (S. BOULARDII) 250 MG CAP PO SCH (10:22)
[2020-06-12] MEDS: ASCORBIC ACID 1,000 MG TAB PO SCH (10:22)
[2020-06-12] MEDS: HEPARIN DRIP/D5W 100UNITS/ML 250 ML IV SCH ×2 (10:24→18:20)
[2020-06-12] MEDS: fentaNYL Drip 2500mCg/250mlNS 250 ML IV SCH (10:25)
[2020-06-12] MEDS ORDERED: MAGNESIUM SULFATE 1GM/100ML 100 ML IV ONE (14:00)
[2020-06-12] MEDS: NOREPINEPHRINE 8 MG/250ML KIT 250 ML IV SCH (16:00)
[2020-06-12] MEDS: ACETAMINOPHEN 500 MG TAB PO PRN (19:45)
[2020-06-12] MEDS: INSULIN LANTUS (GLARGINE) 1 /0.01ml (100units/ml) SC SCH (22:00)
[2020-06-12] MEDS: SODIUM CHLOR 0.9% PF (SALINE LOCK) 10ML VIAL/SYR IV SCH (22:00)
[2020-06-13] VITALS (94 sets, daily range): BP systolic 93–137; BP diastolic 48–76
[2020-06-13] MEDS: InsuLIN REG 1unit/0.01ml Soln (100units/ml) SC SCH ×4 (00:30→17:51)
[2020-06-13 04:51] LABS: Hematocrit 29.9 % (41.0-53.0); Hemoglobin 9.8 g/dL (13.5-17.5); Mean Corpuscular Hgb Conc. 32.8 g/dL (32.0-36.0); Mean Corpuscular Volume 94.6 fL (80.0-100.0); Platelet Count (auto) 240 10^3/uL (140-450); Red Blood Cells 3.16 10^6/uL (4.5-5.90); Red Cell Distribution Width 15.4 % (11.8-14.3); White Blood Cell 25.8 10^3/uL (4.4-10.8)
[2020-06-13 04:55] LABS: Basophils % (manual) 0 (0.0-2.0); Blast Cells 0; Metamyelocytes % 0; Myelocytes % 0; Promyelocytes % 0; Reactive Lymphocytes 0
[2020-06-13 05:54] LABS: INR 1.12 (0.9-1.15); Partial Thromboplastin Time 62.8 sec (23.0-31.2)
[2020-06-13] MEDS: ACCU-CHEK COMFORT CURVE STRIP VI SCH ×4 (06:03→23:33)
[2020-06-13] MEDS: METOCLOPRAMIDE HCL 5MG/ml INJ 2ml VIAL IV SCH ×3 (06:03→22:00)
[2020-06-13] MEDS: PIPERACILLIN-TAZOB 3.375GM 100 ML IV SCH ×4 (06:03→23:33)
[2020-06-13] MEDS: PROPOFOL 100 ML IV SCH (06:43)
[2020-06-13 06:46] LABS: Band Neutrophils % (manual) 49; Eosinophils % (manual) 4 (0-7); Lymphocytes % (manual) 11 (10.0-50.0); Monocytes % (manual) 5 (0-12)
[2020-06-13] MEDS: ALBUTEROL SULF 2.5 MG/0.5ML(0.5%) NEB SOLN NEB PRN ×3 (06:50→18:09)
[2020-06-13] MEDS: ACETYLCYSTEINE 20%(200MG/ML) SOL 4ML NEB SCH ×3 (06:50→18:09)
[2020-06-13] MEDS: HEPARIN DRIP/D5W 100UNITS/ML 250 ML IV SCH (08:23)
[2020-06-13] MEDS: ZINC SULFATE 220mg CAP or TAB PO SCH (10:00)
[2020-06-13] MEDS: CHOLECALCIFEROL (VITD3) 1,000UNIT=25mCg TAB PO SCH (10:00)
[2020-06-13] MEDS: FUROSEMIDE 40 MG/4 ML VIAL IV SCH (10:00)
[2020-06-13] MEDS: FAMOTIDINE (10MG/ML) 2ML VL IV SCH ×2 (10:00→22:00)
[2020-06-13] MEDS: FLORASTOR (S. BOULARDII) 250 MG CAP PO SCH (10:00)
[2020-06-13] MEDS: ASCORBIC ACID 1,000 MG TAB PO SCH (10:00)
[2020-06-13] MEDS: SODIUM CHLOR 0.9% PF (SALINE LOCK) 10ML VIAL/SYR IV SCH ×2 (10:00→22:00)
[2020-06-13] MEDS ORDERED: MAGNESIUM SULFATE 1GM/100ML 100 ML IV ONE (11:45)
[2020-06-13] MEDS: NOREPINEPHRINE 8 MG/250ML KIT 250 ML IV SCH (16:00)
[2020-06-13] MEDS: fentaNYL Drip 2500mCg/250mlNS 250 ML IV SCH (16:00)
[2020-06-13] MEDS: INSULIN LANTUS (GLARGINE) 1 /0.01ml (100units/ml) SC SCH (22:00)
[2020-06-14] VITALS (100 sets, daily range): BP systolic 96–155; BP diastolic 52–94
[2020-06-14] MEDS: ALBUTEROL SULF 2.5 MG/0.5ML(0.5%) NEB SOLN NEB PRN ×4 (01:55→18:31)
[2020-06-14 05:49] LABS: Basophils # (auto) 0.1 10 ^3/uL (0-0.2); Basophils % (auto) 0.5 % (0.0-2.0); Eosinophils # (auto) 1.5 10 ^3/uL (0-0.8); Eosinophils % (auto) 6.8 % (0.0-7.0); Hematocrit 26.6 % (41.0-53.0); Hemoglobin 8.8 g/dL (13.5-17.5); Lymphocytes % (auto) 8.7 % (10.0-50.0); Mean Corpuscular Hgb Conc. 33.2 g/dL (32.0-36.0); Mean Corpuscular Volume 93.3 fL (80.0-100.0); Monocytes # (auto) 1.7 10 ^3/uL (0-1.3); Monocytes % (auto) 7.5 % (0.0-12.0); Neutrophils # (auto) 17.3 10 ^3/uL (1.6-8.6); Neutrophils % (auto) 76.5 % (37.0-80.0); Nucleated Red Blood Cells % 0.4 %; Platelet Count (auto) 279 10^3/uL (140-450); Red Blood Cells 2.85 10^6/uL (4.5-5.90); Red Cell Distribution Width 15.3 % (11.8-14.3); White Blood Cell 22.6 10^3/uL (4.4-10.8)
[2020-06-14] MEDS: PIPERACILLIN-TAZOB 3.375GM 100 ML IV SCH ×4 (06:00→23:32)
[2020-06-14] MEDS: METOCLOPRAMIDE HCL 5MG/ml INJ 2ml VIAL IV SCH ×3 (06:00→22:28)
[2020-06-14] MEDS: ACCU-CHEK COMFORT CURVE STRIP VI SCH ×4 (06:00→23:32)
[2020-06-14] MEDS: InsuLIN REG 1unit/0.01ml Soln (100units/ml) SC SCH ×5 (06:00→23:32)
[2020-06-14 06:07] LABS: Calcium 8.6 mg/dL (8.5-10.1); Magnesium 1.8 mg/dL (1.6-2.6); Potassium 3.2 mmol/L (3.5-5.1)
[2020-06-14 06:10] LABS: BUN/Creatinine Ratio 8.9
[2020-06-14] MEDS: ACETYLCYSTEINE 20%(200MG/ML) SOL 4ML NEB SCH ×4 (06:34→18:31)
[2020-06-14] MEDS: HEPARIN DRIP/D5W 100UNITS/ML 250 ML IV SCH ×2 (06:48→16:49)
[2020-06-14 08:17] LABS: INR 1.08 (0.9-1.15); Partial Thromboplastin Time 60.7 sec (23.0-31.2)
[2020-06-14] MEDS: POTASSIUM CHL 20MEQ/100ML 100 ML IV SCH ×2 (09:14→09:54)
[2020-06-14] MEDS ORDERED: DEXTROSE (50%) 50ML SYRG IV PRN (09:15)
[2020-06-14] MEDS ORDERED: MAGNESIUM SULFATE 1GM/100ML 100 ML IV ONE (09:15)
[2020-06-14] MEDS: FAMOTIDINE (10MG/ML) 2ML VL IV SCH ×2 (09:55→22:28)
[2020-06-14] MEDS: FUROSEMIDE 40 MG/4 ML VIAL IV SCH (09:55)
[2020-06-14] MEDS: CHOLECALCIFEROL (VITD3) 1,000UNIT=25mCg TAB PO SCH (09:55)
[2020-06-14] MEDS: FLORASTOR (S. BOULARDII) 250 MG CAP PO SCH (09:55)
[2020-06-14] MEDS: SODIUM CHLOR 0.9% PF (SALINE LOCK) 10ML VIAL/SYR IV SCH ×2 (09:55→22:28)
[2020-06-14] MEDS: ZINC SULFATE 220mg CAP or TAB PO SCH (09:55)
[2020-06-14] MEDS: ASCORBIC ACID 1,000 MG TAB PO SCH (09:55)
[2020-06-14] MEDS: NOREPINEPHRINE 8 MG/250ML KIT 250 ML IV SCH (16:00)
[2020-06-14] MEDS: fentaNYL Drip 2500mCg/250mlNS 250 ML IV SCH (16:00)
[2020-06-14] MEDS: PROPOFOL 100 ML IV SCH (16:00)
[2020-06-14] MEDS: MIDAZOLAM DRIP 50 mg/50mL 50 ML IV SCH (16:51)
[2020-06-15] VITALS (90 sets, daily range): BP systolic 100–146; BP diastolic 56–79
[2020-06-15] MEDS: fentaNYL Drip 2500mCg/250mlNS 250 ML IV SCH (00:47)
[2020-06-15] MEDS: ALBUTEROL SULF 2.5 MG/0.5ML(0.5%) NEB SOLN NEB PRN ×4 (02:08→18:07)
[2020-06-15] MEDS: ACETYLCYSTEINE 20%(200MG/ML) SOL 4ML NEB SCH ×4 (02:10→18:09)
[2020-06-15 04:31] LABS: Hematocrit 26.7 % (41.0-53.0); Hemoglobin 8.7 g/dL (13.5-17.5); Mean Corpuscular Hemoglobin 30.6 pg (28.0-32.0); Mean Corpuscular Hgb Conc. 32.6 g/dL (32.0-36.0); Platelet Count (auto) 292 10^3/uL (140-450); Red Blood Cells 2.84 10^6/uL (4.5-5.90); Red Cell Distribution Width 15.6 % (11.8-14.3)
[2020-06-15 04:40] LABS: Basophils % (manual) 0 (0.0-2.0); Blast Cells 0; Metamyelocytes % 0; Promyelocytes % 0; Reactive Lymphocytes 0
[2020-06-15 04:47] LABS: Magnesium 1.8 mg/dL (1.6-2.6)
[2020-06-15 05:20] LABS: Band Neutrophils % (manual) 8; Eosinophils % (manual) 14 (0-7); Lymphocytes % (manual) 16 (10.0-50.0); Monocytes % (manual) 5 (0-12); Myelocytes % 3
[2020-06-15] MEDS: HEPARIN DRIP/D5W 100UNITS/ML 250 ML IV SCH (05:30)
[2020-06-15] MEDS: InsuLIN REG 1unit/0.01ml Soln (100units/ml) SC SCH ×3 (06:00→18:00)
[2020-06-15] MEDS: METOCLOPRAMIDE HCL 5MG/ml INJ 2ml VIAL IV SCH ×3 (06:13→20:27)
[2020-06-15] MEDS: ACCU-CHEK COMFORT CURVE STRIP VI SCH ×3 (06:14→18:23)
[2020-06-15] MEDS: PIPERACILLIN-TAZOB 3.375GM 100 ML IV SCH ×3 (06:14→18:22)
[2020-06-15] MEDS: ZINC SULFATE 220mg CAP or TAB PO SCH (10:00)
[2020-06-15] MEDS: FAMOTIDINE (10MG/ML) 2ML VL IV SCH ×2 (10:00→20:27)
[2020-06-15] MEDS: CHOLECALCIFEROL (VITD3) 1,000UNIT=25mCg TAB PO SCH (10:00)
[2020-06-15] MEDS: FLORASTOR (S. BOULARDII) 250 MG CAP PO SCH (10:00)
[2020-06-15] MEDS: SODIUM CHLOR 0.9% PF (SALINE LOCK) 10ML VIAL/SYR IV SCH ×2 (10:00→20:27)
[2020-06-15] MEDS: ASCORBIC ACID 1,000 MG TAB PO SCH (10:00)
[2020-06-15] MEDS ORDERED: BISACODYL 10 MG RECT SUPP PR ONE (11:00)
[2020-06-15] MEDS ORDERED: LACTULOSE 20Gm/30ML SOLN PO PRN (11:00)
[2020-06-15] MEDS ORDERED: DexAMETHasone SOD PHOS 10MG/1ML VIAL INJ IV ONE (11:00)
[2020-06-15] MEDS: POTASSIUM CHL 20MEQ/100ML 100 ML IV SCH ×3 (11:00→13:36)
[2020-06-15] MEDS ORDERED: FLUCONAZOLE 200MG/100ML 100 ML IV ONE (11:00)
[2020-06-15] MEDS: FUROSEMIDE 40 MG/4 ML VIAL IV SCH (12:00)
[2020-06-15 13:11] LABS: INR 1.08 (0.9-1.15); Partial Thromboplastin Time 57.2 sec (23.0-31.2)
[2020-06-15] MEDS: PROPOFOL 100 ML IV SCH ×2 (16:00→23:53)
[2020-06-15] MEDS: NOREPINEPHRINE 8 MG/250ML KIT 250 ML IV SCH (16:00)
[2020-06-15] MEDS: MIDAZOLAM DRIP 50 mg/50mL 50 ML IV SCH ×2 (16:00→20:41)
[2020-06-16] VITALS (103 sets, daily range): BP systolic 89–129; BP diastolic 52–76
[2020-06-16] MEDS: ACETYLCYSTEINE 20%(200MG/ML) SOL 4ML NEB SCH ×4 (00:05→18:03)
[2020-06-16] MEDS: ALBUTEROL SULF 2.5 MG/0.5ML(0.5%) NEB SOLN NEB PRN ×4 (00:06→18:03)
[2020-06-16] MEDS: ACCU-CHEK COMFORT CURVE STRIP VI SCH ×4 (00:06→17:36)
[2020-06-16] MEDS: PIPERACILLIN-TAZOB 3.375GM 100 ML IV SCH ×4 (00:07→17:30)
[2020-06-16 01:37] LABS: Hematocrit 27.3 % (41.0-53.0); Hemoglobin 8.8 g/dL (13.5-17.5); Mean Corpuscular Hemoglobin 30.2 pg (28.0-32.0); Mean Corpuscular Hgb Conc. 32.3 g/dL (32.0-36.0); Mean Corpuscular Volume 93.4 fL (80.0-100.0); Platelet Count (auto) 403 10^3/uL (140-450); Red Blood Cells 2.92 10^6/uL (4.5-5.90); Red Cell Distribution Width 15.5 % (11.8-14.3); White Blood Cell 15.3 10^3/uL (4.4-10.8)
[2020-06-16 01:39] LABS: Basophils % (manual) 0 (0.0-2.0); Blast Cells 0; Eosinophils % (manual) 0 (0-7); Promyelocytes % 0; Reactive Lymphocytes 0
[2020-06-16] MEDS: fentaNYL Drip 2500mCg/250mlNS 250 ML IV SCH ×2 (01:44→12:24)
[2020-06-16 01:58] LABS: INR 1.1 (0.9-1.15)
[2020-06-16 02:03] LABS: Partial Thromboplastin Time 79.1 sec (23.0-31.2)
[2020-06-16 02:07] LABS: BUN/Creatinine Ratio 13.2; Band Neutrophils % (manual) 15; Calcium 8.5 mg/dL (8.5-10.1); Lymphocytes % (manual) 14 (10.0-50.0); Magnesium 2.1 mg/dL (1.6-2.6); Metamyelocytes % 3; Monocytes % (manual) 4 (0-12); Myelocytes % 6
[2020-06-16] MEDS: MIDAZOLAM DRIP 50 mg/50mL 50 ML IV SCH ×4 (04:02→23:00)
[2020-06-16] MEDS: METOCLOPRAMIDE HCL 5MG/ml INJ 2ml VIAL IV SCH ×3 (04:44→21:37)
[2020-06-16] MEDS: InsuLIN REG 1unit/0.01ml Soln (100units/ml) SC SCH ×4 (05:15→17:36)
[2020-06-16] MEDS: PROPOFOL 100 ML IV SCH ×6 (06:42→20:00)
[2020-06-16] MEDS: DexAMETHasone SOD PHOS 10MG/1ML VIAL INJ IV SCH (10:01)
[2020-06-16] MEDS: FLUCONAZOLE 200MG/100ML 100 ML IV SCH (10:01)
[2020-06-16] MEDS: CHOLECALCIFEROL (VITD3) 1,000UNIT=25mCg TAB PO SCH (10:02)
[2020-06-16] MEDS: ASCORBIC ACID 1,000 MG TAB PO SCH (10:02)
[2020-06-16] MEDS: FAMOTIDINE (10MG/ML) 2ML VL IV SCH ×2 (10:02→21:37)
[2020-06-16] MEDS: ZINC SULFATE 220mg CAP or TAB PO SCH (10:02)
[2020-06-16] MEDS: FUROSEMIDE 40 MG/4 ML VIAL IV SCH (10:02)
[2020-06-16] MEDS: SODIUM CHLOR 0.9% PF (SALINE LOCK) 10ML VIAL/SYR IV SCH ×2 (10:02→21:37)
[2020-06-16 10:38] LABS: Urine Bacteria NONE SEEN /hpf (None Seen); Urine Blood 3+ /uL (Negative); Urine WBC 498 /hpf (0 - 3)
[2020-06-16 10:39] LABS: Urine Specific Gravity 1.026 (1.001-1.035)
[2020-06-16 14:29] LABS: INR 1.09 (0.9-1.15); Partial Thromboplastin Time 63.7 sec (23.0-31.2)
[2020-06-16] MEDS: NOREPINEPHRINE 8 MG/250ML KIT 250 ML IV SCH (16:00)
[2020-06-16] MEDS: HEPARIN DRIP/D5W 100UNITS/ML 250 ML IV SCH (17:06)
[2020-06-16 22:25] LABS: INR 1.1 (0.9-1.15)
[2020-06-17] VITALS (96 sets, daily range): BP systolic 93–138; BP diastolic 51–73
[2020-06-17] MEDS: ACETYLCYSTEINE 20%(200MG/ML) SOL 4ML NEB SCH ×4 (00:09→18:00)
[2020-06-17] MEDS: ALBUTEROL SULF 2.5 MG/0.5ML(0.5%) NEB SOLN NEB PRN ×4 (00:09→19:06)
[2020-06-17] MEDS: PIPERACILLIN-TAZOB 3.375GM 100 ML IV SCH ×5 (00:30→23:59)
[2020-06-17] MEDS: HEPARIN DRIP/D5W 100UNITS/ML 250 ML IV SCH ×3 (00:32→15:15)
[2020-06-17] MEDS: ACCU-CHEK COMFORT CURVE STRIP VI SCH ×5 (00:32→23:59)
[2020-06-17] MEDS: InsuLIN REG 1unit/0.01ml Soln (100units/ml) SC SCH ×4 (00:38→17:42)
[2020-06-17] MEDS: fentaNYL Drip 2500mCg/250mlNS 250 ML IV SCH ×2 (00:42→12:59)
[2020-06-17] MEDS: MIDAZOLAM DRIP 50 mg/50mL 50 ML IV SCH ×4 (03:00→22:14)
[2020-06-17] MEDS: PROPOFOL 100 ML IV SCH ×5 (03:00→22:13)
[2020-06-17] MEDS: METOCLOPRAMIDE HCL 5MG/ml INJ 2ml VIAL IV SCH ×3 (05:39→22:11)
[2020-06-17 06:02] LABS: INR 1.1 (0.9-1.15); Partial Thromboplastin Time 62.5 sec (23.0-31.2)
[2020-06-17 06:05] LABS: Albumin 1.6 g/dL (3.4-5.0); Calcium 8.4 mg/dL (8.5-10.1); Potassium 3.4 mmol/L (3.5-5.1)
[2020-06-17 06:08] LABS: BUN/Creatinine Ratio 20.3; Bilirubin, Total 0.3 mg/dL (0.2-1.0); Total Protein 6.2 g/dL (6.4-8.2)
[2020-06-17 07:09] LABS: Hemoglobin 8.2 g/dL (13.5-17.5)
[2020-06-17 07:11] LABS: Mean Corpuscular Hemoglobin 30.5 pg (28.0-32.0); Mean Corpuscular Hgb Conc. 32.6 g/dL (32.0-36.0); Mean Corpuscular Volume 93.6 fL (80.0-100.0); Platelet Count (auto) 477 10^3/uL (140-450); Red Blood Cells 2.68 10^6/uL (4.5-5.90); Red Cell Distribution Width 15.5 % (11.8-14.3); White Blood Cell 17.5 10^3/uL (4.4-10.8)
[2020-06-17 07:21] LABS: Basophils % (manual) 0 (0.0-2.0); Blast Cells 0; Eosinophils % (manual) 0 (0-7); Promyelocytes % 0; Reactive Lymphocytes 0
[2020-06-17 08:39] LABS: Band Neutrophils % (manual) 9; Lymphocytes % (manual) 16 (10.0-50.0); Metamyelocytes % 2; Monocytes % (manual) 6 (0-12); Myelocytes % 6
[2020-06-17] MEDS: FAMOTIDINE (10MG/ML) 2ML VL IV SCH ×2 (08:58→22:10)
[2020-06-17] MEDS: FUROSEMIDE 40 MG/4 ML VIAL IV SCH (08:58)
[2020-06-17] MEDS: FLUCONAZOLE 200MG/100ML 100 ML IV SCH (08:58)
[2020-06-17] MEDS: ASCORBIC ACID 1,000 MG TAB PO SCH (08:58)
[2020-06-17] MEDS: ZINC SULFATE 220mg CAP or TAB PO SCH (08:58)
[2020-06-17] MEDS: DexAMETHasone SOD PHOS 10MG/1ML VIAL INJ IV SCH (08:58)
[2020-06-17] MEDS: SODIUM CHLOR 0.9% PF (SALINE LOCK) 10ML VIAL/SYR IV SCH ×2 (08:59→22:10)
[2020-06-17] MEDS: CHOLECALCIFEROL (VITD3) 1,000UNIT=25mCg TAB PO SCH (08:59)
[2020-06-17] MEDS: POTASSIUM CHL 20MEQ/100ML 100 ML IV SCH ×2 (13:37→15:17)
[2020-06-18] VITALS (95 sets, daily range): BP systolic 94–145; BP diastolic 49–86
[2020-06-18] MEDS: InsuLIN REG 1unit/0.01ml Soln (100units/ml) SC SCH ×4 (00:03→17:58)
[2020-06-18] MEDS: fentaNYL Drip 2500mCg/250mlNS 250 ML IV SCH ×2 (00:13→13:32)
[2020-06-18] MEDS: ALBUTEROL SULF 2.5 MG/0.5ML(0.5%) NEB SOLN NEB PRN ×4 (00:49→18:51)
[2020-06-18] MEDS: PROPOFOL 100 ML IV SCH ×6 (01:00→22:01)
[2020-06-18] MEDS: MIDAZOLAM DRIP 50 mg/50mL 50 ML IV SCH ×5 (01:30→21:33)
[2020-06-18] MEDS: HEPARIN DRIP/D5W 100UNITS/ML 250 ML IV SCH ×2 (04:41→17:23)
[2020-06-18] MEDS: METOCLOPRAMIDE HCL 5MG/ml INJ 2ml VIAL IV SCH ×3 (06:02→21:32)
[2020-06-18] MEDS: PIPERACILLIN-TAZOB 3.375GM 100 ML IV SCH ×3 (06:03→17:15)
[2020-06-18] MEDS: ACCU-CHEK COMFORT CURVE STRIP VI SCH ×3 (06:04→17:55)
[2020-06-18] MEDS: ACETYLCYSTEINE 20%(200MG/ML) SOL 4ML NEB SCH ×4 (06:18→18:51)
[2020-06-18 06:25] LABS: INR 1.08 (0.9-1.15); Partial Thromboplastin Time 50.4 sec (23.0-31.2)
[2020-06-18 06:46] LABS: Magnesium 2.2 mg/dL (1.6-2.6); Potassium 3.5 mmol/L (3.5-5.1)
[2020-06-18 07:39] LABS: Albumin 1.9 g/dL (3.4-5.0); Calcium 8.1 mg/dL (8.5-10.1); Potassium 3.6 mmol/L (3.5-5.1)
[2020-06-18 07:44] LABS: BUN/Creatinine Ratio 21.2; Bilirubin, Total 0.3 mg/dL (0.2-1.0); Total Protein 6.3 g/dL (6.4-8.2)
[2020-06-18] MEDS: FLUCONAZOLE 200MG/100ML 100 ML IV SCH (08:33)
[2020-06-18] MEDS: ASCORBIC ACID 1,000 MG TAB PO SCH (08:35)
[2020-06-18] MEDS: DexAMETHasone SOD PHOS 10MG/1ML VIAL INJ IV SCH (08:35)
[2020-06-18] MEDS: SODIUM CHLOR 0.9% PF (SALINE LOCK) 10ML VIAL/SYR IV SCH ×2 (08:36→21:32)
[2020-06-18] MEDS: FAMOTIDINE (10MG/ML) 2ML VL IV SCH ×2 (08:36→21:32)
[2020-06-18] MEDS: ZINC SULFATE 220mg CAP or TAB PO SCH (08:36)
[2020-06-18] MEDS: FUROSEMIDE 40 MG/4 ML VIAL IV SCH (08:36)
[2020-06-18] MEDS: CHOLECALCIFEROL (VITD3) 1,000UNIT=25mCg TAB PO SCH (08:37)
[2020-06-18] MEDS: Jevity 1.2 Cal/Fiber 1 Liter GT SCH ×2 (11:48→17:58)
[2020-06-18] MEDS: ERGOCALCIFEROL 50,000 UNIT(1.25MG) CAP PO SCH (13:32)
[2020-06-19] VITALS (107 sets, daily range): BP systolic 103–142; BP diastolic 55–81
[2020-06-19] MEDS: ALBUTEROL SULF 2.5 MG/0.5ML(0.5%) NEB SOLN NEB PRN ×2 (00:21→18:04)
[2020-06-19] MEDS: ACETYLCYSTEINE 20%(200MG/ML) SOL 4ML NEB SCH ×4 (00:21→18:04)
[2020-06-19] MEDS: PROPOFOL 100 ML IV SCH ×8 (01:00→21:00)
[2020-06-19] MEDS: PIPERACILLIN-TAZOB 3.375GM 100 ML IV SCH ×4 (01:05→17:54)
[2020-06-19] MEDS: ACCU-CHEK COMFORT CURVE STRIP VI SCH ×4 (01:05→17:42)
[2020-06-19] MEDS: InsuLIN REG 1unit/0.01ml Soln (100units/ml) SC SCH ×4 (01:10→17:41)
[2020-06-19] MEDS: fentaNYL Drip 2500mCg/250mlNS 250 ML IV SCH ×2 (02:10→12:00)
[2020-06-19] MEDS: MIDAZOLAM DRIP 50 mg/50mL 50 ML IV SCH ×6 (02:12→22:30)
[2020-06-19 04:27] LABS: Magnesium 2.3 mg/dL (1.6-2.6); Potassium 3.9 mmol/L (3.5-5.1)
[2020-06-19 04:50] LABS: INR 1.11 (0.9-1.15); Partial Thromboplastin Time 49.4 sec (23.0-31.2)
[2020-06-19 04:56] LABS: White Blood Cell 20.8 10^3/uL (4.4-10.8)
[2020-06-19 04:58] LABS: Hematocrit 27.5 % (41.0-53.0); Mean Corpuscular Hemoglobin 30.9 pg (28.0-32.0); Mean Corpuscular Hgb Conc. 32.7 g/dL (32.0-36.0); Mean Corpuscular Volume 94.4 fL (80.0-100.0); Platelet Count (auto) 654 10^3/uL (140-450); Red Blood Cells 2.92 10^6/uL (4.5-5.90); Red Cell Distribution Width 16.8 % (11.8-14.3)
[2020-06-19 05:03] LABS: Basophils % (manual) 0 (0.0-2.0); Blast Cells 0; Eosinophils % (manual) 0 (0-7); Promyelocytes % 0; Reactive Lymphocytes 0
[2020-06-19 05:43] LABS: Band Neutrophils % (manual) 8; Lymphocytes % (manual) 23 (10.0-50.0); Metamyelocytes % 3; Monocytes % (manual) 8 (0-12); Myelocytes % 4
[2020-06-19] MEDS: METOCLOPRAMIDE HCL 5MG/ml INJ 2ml VIAL IV SCH ×3 (06:40→22:00)
[2020-06-19] MEDS: HEPARIN DRIP/D5W 100UNITS/ML 250 ML IV SCH ×2 (06:44→18:00)
[2020-06-19] MEDS: FUROSEMIDE 40 MG/4 ML VIAL IV SCH (10:14)
[2020-06-19] MEDS: SODIUM CHLOR 0.9% PF (SALINE LOCK) 10ML VIAL/SYR IV SCH ×2 (10:14→22:00)
[2020-06-19] MEDS: ZINC SULFATE 220mg CAP or TAB PO SCH (10:14)
[2020-06-19] MEDS: FAMOTIDINE (10MG/ML) 2ML VL IV SCH ×2 (10:14→22:00)
[2020-06-19] MEDS: ASCORBIC ACID 1,000 MG TAB PO SCH (10:14)
[2020-06-19] MEDS: FLUCONAZOLE 200MG/100ML 100 ML IV SCH (10:14)
[2020-06-19] MEDS: CHOLECALCIFEROL (VITD3) 1,000UNIT=25mCg TAB PO SCH (10:14)
[2020-06-19] MEDS: DexAMETHasone SOD PHOS 10MG/1ML VIAL INJ IV SCH (10:14)
[2020-06-19 11:59] LABS: INR 1.11 (0.9-1.15)
[2020-06-19 12:03] LABS: Partial Thromboplastin Time 75.5 sec (23.0-31.2)
[2020-06-19] MEDS: Jevity 1.2 Cal/Fiber 1 Liter GT SCH (17:50)
[2020-06-19 18:03] LABS: INR 1.13 (0.9-1.15)
[2020-06-19 18:27] LABS: Partial Thromboplastin Time 95.2 sec (23.0-31.2)
[2020-06-20] VITALS (102 sets, daily range): BP systolic 104–160; BP diastolic 57–95
[2020-06-20] MEDS: fentaNYL Drip 2500mCg/250mlNS 250 ML IV SCH ×2 (00:35→12:26)
[2020-06-20] MEDS: ALBUTEROL SULF 2.5 MG/0.5ML(0.5%) NEB SOLN NEB PRN ×3 (00:38→19:31)
[2020-06-20] MEDS: ACETYLCYSTEINE 20%(200MG/ML) SOL 4ML NEB SCH ×4 (00:38→19:31)
[2020-06-20] MEDS: MIDAZOLAM DRIP 50 mg/50mL 50 ML IV SCH ×5 (00:40→21:59)
[2020-06-20 01:56] LABS: INR 1.13 (0.9-1.15); Partial Thromboplastin Time 59.8 sec (23.0-31.2)
[2020-06-20] MEDS: PROPOFOL 100 ML IV SCH ×8 (03:00→23:46)
[2020-06-20 03:53] LABS: Potassium 4.3 mmol/L (3.5-5.1)
[2020-06-20 03:55] LABS: Magnesium 2.2 mg/dL (1.6-2.6)
[2020-06-20 04:00] LABS: Mean Corpuscular Hemoglobin 30.5 pg (28.0-32.0)
[2020-06-20 04:01] LABS: Hematocrit 28.1 % (41.0-53.0); Hemoglobin 8.9 g/dL (13.5-17.5); Mean Corpuscular Hgb Conc. 31.5 g/dL (32.0-36.0); Mean Corpuscular Volume 96.8 fL (80.0-100.0); Platelet Count (auto) 662 10^3/uL (140-450); Red Blood Cells 2.91 10^6/uL (4.5-5.90); Red Cell Distribution Width 17.8 % (11.8-14.3); White Blood Cell 17.4 10^3/uL (4.4-10.8)
[2020-06-20 04:13] LABS: Lactic Acid w/Reflex 2.1 mmol/L (0.4-2.0)
[2020-06-20 04:13] LABS: Basophils % (manual) 0 (0.0-2.0); Blast Cells 0; Eosinophils % (manual) 0 (0-7); Promyelocytes % 0; Reactive Lymphocytes 0
[2020-06-20] MEDS: PIPERACILLIN-TAZOB 3.375GM 100 ML IV SCH ×4 (06:23→18:06)
[2020-06-20] MEDS: InsuLIN REG 1unit/0.01ml Soln (100units/ml) SC SCH ×5 (06:23→23:52)
[2020-06-20] MEDS: ACCU-CHEK COMFORT CURVE STRIP VI SCH ×5 (06:23→23:48)
[2020-06-20] MEDS: METOCLOPRAMIDE HCL 5MG/ml INJ 2ml VIAL IV SCH ×3 (06:23→21:59)
[2020-06-20 06:40] LABS: Band Neutrophils % (manual) 4; Lymphocytes % (manual) 16 (10.0-50.0); Metamyelocytes % 2; Monocytes % (manual) 4 (0-12); Myelocytes % 4
[2020-06-20] MEDS: HEPARIN DRIP/D5W 100UNITS/ML 250 ML IV SCH ×2 (07:00→12:27)
[2020-06-20 08:55] LABS: INR 1.13 (0.9-1.15)
[2020-06-20 09:29] LABS: Albumin 2.1 g/dL (3.4-5.0); Calcium 8.6 mg/dL (8.5-10.1); Magnesium 2.4 mg/dL (1.6-2.6); Potassium 4.2 mmol/L (3.5-5.1)
[2020-06-20 09:33] LABS: BUN/Creatinine Ratio 22.9; Bilirubin, Total 0.3 mg/dL (0.2-1.0); Total Protein 6.1 g/dL (6.4-8.2)
[2020-06-20] MEDS: DexAMETHasone SOD PHOS 10MG/1ML VIAL INJ IV SCH (09:41)
[2020-06-20] MEDS: FLUCONAZOLE 200MG/100ML 100 ML IV SCH (09:42)
[2020-06-20] MEDS: ZINC SULFATE 220mg CAP or TAB PO SCH (09:43)
[2020-06-20] MEDS: ASCORBIC ACID 1,000 MG TAB PO SCH (09:43)
[2020-06-20] MEDS: FUROSEMIDE 40 MG/4 ML VIAL IV SCH (09:43)
[2020-06-20] MEDS: SODIUM CHLOR 0.9% PF (SALINE LOCK) 10ML VIAL/SYR IV SCH ×2 (09:43→21:58)
[2020-06-20] MEDS: FAMOTIDINE (10MG/ML) 2ML VL IV SCH ×2 (09:43→21:58)
[2020-06-20] MEDS: CHOLECALCIFEROL (VITD3) 2,000 UNIT CAP/TAB PO SCH (09:44)
[2020-06-20 14:47] LABS: INR 1.17 (0.9-1.15); Partial Thromboplastin Time 56.6 sec (23.0-31.2)
[2020-06-21] VITALS (103 sets, daily range): BP systolic 88–155; BP diastolic 45–89
[2020-06-21] MEDS: PIPERACILLIN-TAZOB 3.375GM 100 ML IV SCH ×4 (00:20→17:56)
[2020-06-21] MEDS: ACETYLCYSTEINE 20%(200MG/ML) SOL 4ML NEB SCH ×4 (00:36→19:06)
[2020-06-21] MEDS: ALBUTEROL SULF 2.5 MG/0.5ML(0.5%) NEB SOLN NEB PRN ×2 (00:37→19:06)
[2020-06-21] MEDS: HEPARIN DRIP/D5W 100UNITS/ML 250 ML IV SCH ×2 (05:23→17:28)
[2020-06-21] MEDS: fentaNYL Drip 2500mCg/250mlNS 250 ML IV SCH ×2 (05:23→22:44)
[2020-06-21 05:27] LABS: INR 1.13 (0.9-1.15); Partial Thromboplastin Time 56.5 sec (23.0-31.2)
[2020-06-21] MEDS: METOCLOPRAMIDE HCL 5MG/ml INJ 2ml VIAL IV SCH ×3 (06:11→22:00)
[2020-06-21] MEDS: ACCU-CHEK COMFORT CURVE STRIP VI SCH ×2 (06:11→11:58)
[2020-06-21] MEDS: InsuLIN REG 1unit/0.01ml Soln (100units/ml) SC SCH ×3 (06:16→17:57)
[2020-06-21] MEDS: MIDAZOLAM DRIP 50 mg/50mL 50 ML IV SCH ×3 (07:55→21:36)
[2020-06-21] MEDS: PROPOFOL 100 ML IV SCH ×5 (08:59→21:36)
[2020-06-21] MEDS: ASCORBIC ACID 1,000 MG TAB PO SCH (09:43)
[2020-06-21] MEDS: FAMOTIDINE (10MG/ML) 2ML VL IV SCH ×2 (09:43→22:00)
[2020-06-21] MEDS: ZINC SULFATE 220mg CAP or TAB PO SCH (09:43)
[2020-06-21] MEDS: DexAMETHasone SOD PHOS 10MG/1ML VIAL INJ IV SCH (09:43)
[2020-06-21] MEDS: FUROSEMIDE 40 MG/4 ML VIAL IV SCH (09:43)
[2020-06-21] MEDS: FLUCONAZOLE 200MG/100ML 100 ML IV SCH (09:43)
[2020-06-21] MEDS: SODIUM CHLOR 0.9% PF (SALINE LOCK) 10ML VIAL/SYR IV SCH ×2 (09:43→22:31)
[2020-06-21] MEDS: CHOLECALCIFEROL (VITD3) 2,000 UNIT CAP/TAB PO SCH (09:44)
[2020-06-21] MEDS: Glucerna 1.2 Cal 1Liter BOTTLE GT SCH (12:11)
[2020-06-22] VITALS (102 sets, daily range): BP systolic 94–165; BP diastolic 54–93
[2020-06-22] MEDS: PIPERACILLIN-TAZOB 3.375GM 100 ML IV SCH ×4 (00:05→18:06)
[2020-06-22] MEDS: InsuLIN REG 1unit/0.01ml Soln (100units/ml) SC SCH ×4 (00:06→18:05)
[2020-06-22] MEDS: ALBUTEROL SULF 2.5 MG/0.5ML(0.5%) NEB SOLN NEB PRN ×4 (01:15→18:34)
[2020-06-22] MEDS: ACETYLCYSTEINE 20%(200MG/ML) SOL 4ML NEB SCH ×4 (01:15→18:00)
[2020-06-22] MEDS: MIDAZOLAM DRIP 50 mg/50mL 50 ML IV SCH ×5 (02:01→18:15)
[2020-06-22] MEDS: PROPOFOL 100 ML IV SCH ×5 (02:01→17:45)
[2020-06-22] MEDS: ACCU-CHEK COMFORT CURVE STRIP VI SCH ×4 (06:10→18:06)
[2020-06-22] MEDS: METOCLOPRAMIDE HCL 5MG/ml INJ 2ml VIAL IV SCH ×3 (06:11→22:00)
[2020-06-22] MEDS: HEPARIN DRIP/D5W 100UNITS/ML 250 ML IV SCH ×2 (06:43→16:33)
[2020-06-22 06:50] LABS: Basophils # (auto) 0.2 10 ^3/uL (0-0.2); Eosinophils % (auto) 1.1 % (0.0-7.0); Hemoglobin 9.7 g/dL (13.5-17.5)
[2020-06-22 06:52] LABS: Basophils % (auto) 0.9 % (0.0-2.0); Eosinophils # (auto) 0.2 10 ^3/uL (0-0.8); Hematocrit 30.2 % (41.0-53.0); Lymphocytes # (auto) 3.9 10 ^3/uL (0.4-5.4); Lymphocytes % (auto) 16.9 % (10.0-50.0); Mean Corpuscular Hemoglobin 31.2 pg (28.0-32.0); Mean Corpuscular Hgb Conc. 32.1 g/dL (32.0-36.0); Mean Corpuscular Volume 97.2 fL (80.0-100.0); Monocytes # (auto) 1.9 10 ^3/uL (0-1.3); Monocytes % (auto) 8.1 % (0.0-12.0); Nucleated Red Blood Cells % 0.7 %; Platelet Count (auto) 661 10^3/uL (140-450); Red Blood Cells 3.11 10^6/uL (4.5-5.90); Red Cell Distribution Width 19.8 % (11.8-14.3); White Blood Cell 23.2 10^3/uL (4.4-10.8)
[2020-06-22 06:56] LABS: Potassium 3.9 mmol/L (3.5-5.1)
[2020-06-22 07:01] LABS: Albumin 2.2 g/dL (3.4-5.0); BUN/Creatinine Ratio 17.9; Calcium 8.9 mg/dL (8.5-10.1); INR 1.16 (0.9-1.15); Partial Thromboplastin Time 54.9 sec (23.0-31.2)
[2020-06-22 07:04] LABS: Bilirubin, Total 0.4 mg/dL (0.2-1.0); Total Protein 6.1 g/dL (6.4-8.2)
[2020-06-22] MEDS: FLUCONAZOLE 200MG/100ML 100 ML IV SCH (09:39)
[2020-06-22] MEDS: ASCORBIC ACID 1,000 MG TAB PO SCH (09:40)
[2020-06-22] MEDS: FUROSEMIDE 40 MG/4 ML VIAL IV SCH (09:40)
[2020-06-22] MEDS: DexAMETHasone SOD PHOS 10MG/1ML VIAL INJ IV SCH (09:40)
[2020-06-22] MEDS: SODIUM CHLOR 0.9% PF (SALINE LOCK) 10ML VIAL/SYR IV SCH ×2 (09:40→22:00)
[2020-06-22] MEDS: FAMOTIDINE (10MG/ML) 2ML VL IV SCH ×2 (09:40→22:00)
[2020-06-22] MEDS: CHOLECALCIFEROL (VITD3) 2,000 UNIT CAP/TAB PO SCH (09:41)
[2020-06-22] MEDS: ZINC SULFATE 220mg CAP or TAB PO SCH (09:41)
[2020-06-22] MEDS: fentaNYL Drip 2500mCg/250mlNS 250 ML IV SCH (14:34)
[2020-06-22] MEDS: Glucerna 1.2 Cal 1Liter BOTTLE GT SCH (14:35)
[2020-06-23] VITALS (107 sets, daily range): BP systolic 97–139; BP diastolic 51–77
[2020-06-23] MEDS: ALBUTEROL SULF 2.5 MG/0.5ML(0.5%) NEB SOLN NEB PRN ×2 (00:04→06:33)
[2020-06-23] MEDS: ACETYLCYSTEINE 20%(200MG/ML) SOL 4ML NEB SCH ×2 (00:04→06:33)
[2020-06-23] MEDS ORDERED: ALBUTEROL SULF 2.5 MG/0.5ML(0.5%) NEB SOLN ONE (00:33)
[2020-06-23] MEDS ORDERED: ALBUTEROL SULF 2.5 MG/0.5ML(0.5%) NEB SOLN NEB ONE (01:00)
[2020-06-23] MEDS: PIPERACILLIN-TAZOB 3.375GM 100 ML IV SCH ×2 (05:41)
[2020-06-23] MEDS: METOCLOPRAMIDE HCL 5MG/ml INJ 2ml VIAL IV SCH ×3 (05:41→22:00)
[2020-06-23] MEDS: ACCU-CHEK COMFORT CURVE STRIP VI SCH ×4 (05:42→17:55)
[2020-06-23] MEDS: InsuLIN REG 1unit/0.01ml Soln (100units/ml) SC SCH ×4 (05:42→17:57)
[2020-06-23 05:44] LABS: Mean Corpuscular Hgb Conc. 31.6 g/dL (32.0-36.0)
[2020-06-23 05:46] LABS: Hematocrit 29.8 % (41.0-53.0); Hemoglobin 9.4 g/dL (13.5-17.5); Mean Corpuscular Hemoglobin 30.5 pg (28.0-32.0); Mean Corpuscular Volume 96.4 fL (80.0-100.0); Platelet Count (auto) 643 10^3/uL (140-450); Red Blood Cells 3.09 10^6/uL (4.5-5.90); White Blood Cell 25.3 10^3/uL (4.4-10.8)
[2020-06-23 06:00] LABS: Red Cell Distribution Width 20.4 % (11.8-14.3)
[2020-06-23 06:02] LABS: Basophils % (manual) 0 (0.0-2.0); Blast Cells 0; Promyelocytes % 0; Reactive Lymphocytes 0
[2020-06-23 07:57] LABS: Band Neutrophils % (manual) 5; Eosinophils % (manual) 1 (0-7); Lymphocytes % (manual) 8 (10.0-50.0); Metamyelocytes % 2; Monocytes % (manual) 6 (0-12); Myelocytes % 3
[2020-06-23] MEDS: PROPOFOL 100 ML IV SCH ×5 (07:59→20:00)
[2020-06-23] MEDS: ACETAMINOPHEN 500 MG TAB PO PRN (08:27)
[2020-06-23] MEDS: MIDAZOLAM DRIP 50 mg/50mL 50 ML IV SCH ×4 (08:27→21:00)
[2020-06-23] MEDS: LINEZOLID 600MG/300ML 300 ML IV SCH ×2 (09:40→22:00)
[2020-06-23] MEDS: CHOLECALCIFEROL (VITD3) 2,000 UNIT CAP/TAB PO SCH (09:41)
[2020-06-23] MEDS: DexAMETHasone SOD PHOS 10MG/1ML VIAL INJ IV SCH (09:41)
[2020-06-23] MEDS: FUROSEMIDE 40 MG/4 ML VIAL IV SCH (09:41)
[2020-06-23] MEDS: FAMOTIDINE (10MG/ML) 2ML VL IV SCH ×2 (09:41→22:00)
[2020-06-23] MEDS: ZINC SULFATE 220mg CAP or TAB PO SCH (09:41)
[2020-06-23] MEDS: ASCORBIC ACID 1,000 MG TAB PO SCH (09:41)
[2020-06-23] MEDS: SODIUM CHLOR 0.9% PF (SALINE LOCK) 10ML VIAL/SYR IV SCH ×2 (09:42→22:00)
[2020-06-23 10:17] LABS: INR 1.13 (0.9-1.15); Partial Thromboplastin Time 61.3 sec (23.0-31.2)
[2020-06-23] MEDS: Glucerna 1.2 Cal 1Liter BOTTLE GT SCH (12:13)
[2020-06-23] MEDS ORDERED: MEROPENEM 1GM IVPB 100 ML IV SCH (13:00)
[2020-06-23] MEDS: HEPARIN DRIP/D5W 100UNITS/ML 250 ML IV SCH (13:10)
[2020-06-23] MEDS: MEROPENEM 1GM IVPB 100 ML IV SCH ×2 (13:56→22:00)
[2020-06-23] MEDS: fentaNYL Drip 2500mCg/250mlNS 250 ML IV SCH (15:22)
[2020-06-24] VITALS (105 sets, daily range): BP systolic 96–152; BP diastolic 53–89
[2020-06-24] MEDS: ACCU-CHEK COMFORT CURVE STRIP VI SCH ×4 (00:01→17:24)
[2020-06-24] MEDS: HEPARIN DRIP/D5W 100UNITS/ML 250 ML IV SCH ×2 (00:31→09:57)
[2020-06-24] MEDS: PROPOFOL 100 ML IV SCH ×5 (00:59→22:00)
[2020-06-24] MEDS: METOCLOPRAMIDE HCL 5MG/ml INJ 2ml VIAL IV SCH ×3 (05:46→22:00)
[2020-06-24] MEDS: MEROPENEM 1GM IVPB 100 ML IV SCH ×3 (05:46→22:00)
[2020-06-24] MEDS: fentaNYL Drip 2500mCg/250mlNS 250 ML IV SCH (05:47)
[2020-06-24] MEDS: InsuLIN REG 1unit/0.01ml Soln (100units/ml) SC SCH ×4 (05:47→17:24)
[2020-06-24] MEDS: MIDAZOLAM DRIP 50 mg/50mL 50 ML IV SCH ×4 (05:49→22:00)
[2020-06-24 06:09] LABS: Hemoglobin 9.2 g/dL (13.5-17.5)
[2020-06-24 06:11] LABS: Hematocrit 28.5 % (41.0-53.0); Mean Corpuscular Hemoglobin 31.4 pg (28.0-32.0); Mean Corpuscular Hgb Conc. 32.4 g/dL (32.0-36.0); Platelet Count (auto) 553 10^3/uL (140-450); Red Blood Cells 2.94 10^6/uL (4.5-5.90)
[2020-06-24 06:24] LABS: Basophils % (manual) 0 (0.0-2.0); Blast Cells 0; Promyelocytes % 0; Reactive Lymphocytes 0; Red Cell Distribution Width 20.3 % (11.8-14.3)
[2020-06-24 06:28] LABS: Potassium 3.7 mmol/L (3.5-5.1)
[2020-06-24 06:30] LABS: Magnesium 2.2 mg/dL (1.6-2.6)
[2020-06-24 06:58] LABS: Band Neutrophils % (manual) 40; Eosinophils % (manual) 2 (0-7); Lymphocytes % (manual) 16 (10.0-50.0); Metamyelocytes % 5; Monocytes % (manual) 7 (0-12); Myelocytes % 4
[2020-06-24] MEDS: FAMOTIDINE (10MG/ML) 2ML VL IV SCH ×2 (08:39→22:00)
[2020-06-24] MEDS: DexAMETHasone SOD PHOS 10MG/1ML VIAL INJ IV SCH (08:39)
[2020-06-24] MEDS: FUROSEMIDE 40 MG/4 ML VIAL IV SCH (08:39)
[2020-06-24] MEDS: ZINC SULFATE 220mg CAP or TAB PO SCH (08:40)
[2020-06-24] MEDS: LINEZOLID 600MG/300ML 300 ML IV SCH ×2 (08:40→22:00)
[2020-06-24] MEDS: SODIUM CHLOR 0.9% PF (SALINE LOCK) 10ML VIAL/SYR IV SCH ×2 (08:40→22:00)
[2020-06-24] MEDS: CHOLECALCIFEROL (VITD3) 2,000 UNIT CAP/TAB PO SCH (08:41)
[2020-06-24] MEDS: ASCORBIC ACID 1,000 MG TAB PO SCH (08:41)
[2020-06-24 09:53] LABS: INR 1.13 (0.9-1.15); Partial Thromboplastin Time 65.3 sec (23.0-31.2)
[2020-06-25] VITALS (91 sets, daily range): BP systolic 85–139; BP diastolic 46–84
[2020-06-25] MEDS: HEPARIN DRIP/D5W 100UNITS/ML 250 ML IV SCH ×3 (00:40→18:23)
[2020-06-25] MEDS: PROPOFOL 100 ML IV SCH ×2 (02:00→20:30)
[2020-06-25] MEDS: MIDAZOLAM DRIP 50 mg/50mL 50 ML IV SCH ×3 (02:00→22:22)
[2020-06-25 05:31] LABS: Hematocrit 29.5 % (41.0-53.0); Hemoglobin 9.5 g/dL (13.5-17.5); Red Blood Cells 3.03 10^6/uL (4.5-5.90)
[2020-06-25 05:33] LABS: Mean Corpuscular Hemoglobin 31.2 pg (28.0-32.0); Mean Corpuscular Hgb Conc. 32.1 g/dL (32.0-36.0); Mean Corpuscular Volume 97.2 fL (80.0-100.0); Platelet Count (auto) 508 10^3/uL (140-450); Red Cell Distribution Width 19.7 % (11.8-14.3); White Blood Cell 20.1 10^3/uL (4.4-10.8)
[2020-06-25 05:40] LABS: Basophils % (manual) 0 (0.0-2.0); Blast Cells 0; Eosinophils % (manual) 0 (0-7); Promyelocytes % 0
[2020-06-25 05:49] LABS: Potassium 3.4 mmol/L (3.5-5.1)
[2020-06-25 05:51] LABS: BUN/Creatinine Ratio 27.9; Calcium 8.4 mg/dL (8.5-10.1)
[2020-06-25] MEDS: MEROPENEM 1GM IVPB 100 ML IV SCH ×3 (06:00→21:33)
[2020-06-25] MEDS: ACCU-CHEK COMFORT CURVE STRIP VI SCH ×4 (06:00→18:23)
[2020-06-25] MEDS: InsuLIN REG 1unit/0.01ml Soln (100units/ml) SC SCH ×4 (06:00→18:00)
[2020-06-25] MEDS: METOCLOPRAMIDE HCL 5MG/ml INJ 2ml VIAL IV SCH (06:00)
[2020-06-25 06:03] LABS: INR 1.24 (0.9-1.15)
[2020-06-25 06:05] LABS: Partial Thromboplastin Time > 139.0 sec (23.0-31.2)
[2020-06-25 06:19] LABS: Band Neutrophils % (manual) 25; Lymphocytes % (manual) 23 (10.0-50.0); Metamyelocytes % 4; Monocytes % (manual) 7 (0-12); Myelocytes % 8; Reactive Lymphocytes 1
[2020-06-25] MEDS: DexAMETHasone SOD PHOS 10MG/1ML VIAL INJ IV SCH (08:17)
[2020-06-25] MEDS: FUROSEMIDE 40 MG/4 ML VIAL IV SCH (08:17)
[2020-06-25] MEDS: ZINC SULFATE 220mg CAP or TAB PO SCH (08:18)
[2020-06-25] MEDS: FAMOTIDINE (10MG/ML) 2ML VL IV SCH ×2 (08:18→21:33)
[2020-06-25] MEDS: CHOLECALCIFEROL (VITD3) 2,000 UNIT CAP/TAB PO SCH (08:18)
[2020-06-25] MEDS: SODIUM CHLOR 0.9% PF (SALINE LOCK) 10ML VIAL/SYR IV SCH ×2 (08:18→21:33)
[2020-06-25] MEDS: ASCORBIC ACID 1,000 MG TAB PO SCH (08:18)
[2020-06-25] MEDS: LINEZOLID 600MG/300ML 300 ML IV SCH ×2 (08:18→22:00)
[2020-06-25] MEDS ORDERED: FLORASTOR (S. BOULARDII) 250 MG CAP PO ONE (13:29)
[2020-06-25] MEDS ORDERED: VANCOMYCIN HCL 125MG/5ML ORAL SOL GT ONE (13:30)
[2020-06-25 14:23] LABS: INR 1.09 (0.9-1.15)
[2020-06-25] MEDS: ERGOCALCIFEROL 50,000 UNIT(1.25MG) CAP PO SCH (15:00)
[2020-06-25] MEDS: POTASSIUM CHL 20MEQ/100ML 100 ML IV SCH ×2 (15:07→15:10)
[2020-06-25] MEDS: fentaNYL Drip 2500mCg/250mlNS 250 ML IV SCH ×2 (16:00→18:24)
[2020-06-25] MEDS: VANCOMYCIN HCL 125MG/5ML ORAL SOL GT SCH ×2 (18:00→22:22)
[2020-06-25 23:17] LABS: INR 1.1 (0.9-1.15); Partial Thromboplastin Time 33.6 sec (23.0-31.2)
[2020-06-26] VITALS (90 sets, daily range): BP systolic 89–123; BP diastolic 26–82
[2020-06-26] MEDS: ACCU-CHEK COMFORT CURVE STRIP VI SCH ×4 (00:29→18:15)
[2020-06-26] MEDS: MIDAZOLAM DRIP 50 mg/50mL 50 ML IV SCH ×3 (01:33→19:15)
[2020-06-26] MEDS ORDERED: HEPARIN SODIUM (PORCINE) 5000 UNITS/ML 1ML VIAL ONE ×2 (02:36→02:37)
[2020-06-26] MEDS: HEPARIN DRIP/D5W 100UNITS/ML 250 ML IV SCH ×3 (02:39→10:28)
[2020-06-26] MEDS: fentaNYL Drip 2500mCg/250mlNS 250 ML IV SCH (04:45)
[2020-06-26] MEDS: InsuLIN REG 1unit/0.01ml Soln (100units/ml) SC SCH ×4 (06:00→18:00)
[2020-06-26] MEDS: MEROPENEM 1GM IVPB 100 ML IV SCH ×3 (06:00→22:32)
[2020-06-26] MEDS: VANCOMYCIN HCL 125MG/5ML ORAL SOL GT SCH ×4 (06:00→20:24)
[2020-06-26 06:54] LABS: Hematocrit 32.4 % (41.0-53.0); Hemoglobin 10.5 g/dL (13.5-17.5); Mean Corpuscular Hemoglobin 31.5 pg (28.0-32.0); Mean Corpuscular Hgb Conc. 32.4 g/dL (32.0-36.0); Mean Corpuscular Volume 97.2 fL (80.0-100.0); Platelet Count (auto) 492 10^3/uL (140-450); Red Blood Cells 3.33 10^6/uL (4.5-5.90); Red Cell Distribution Width 19.6 % (11.8-14.3); White Blood Cell 23.9 10^3/uL (4.4-10.8)
[2020-06-26 06:58] LABS: Basophils % (manual) 0 (0.0-2.0); Blast Cells 0; Promyelocytes % 0; Reactive Lymphocytes 0
[2020-06-26 07:00] LABS: Potassium 4.2 mmol/L (3.5-5.1)
[2020-06-26] MEDS: POTASSIUM EFFERVESENT TAB 25 MEQ GT SCH (07:52)
[2020-06-26] MEDS: DexAMETHasone SOD PHOS 10MG/1ML VIAL INJ IV SCH (07:53)
[2020-06-26] MEDS: FUROSEMIDE 40 MG/4 ML VIAL IV SCH (07:53)
[2020-06-26] MEDS: SODIUM CHLOR 0.9% PF (SALINE LOCK) 10ML VIAL/SYR IV SCH ×2 (07:54→20:25)
[2020-06-26] MEDS: FAMOTIDINE (10MG/ML) 2ML VL IV SCH ×2 (07:54→20:24)
[2020-06-26] MEDS: FLORASTOR (S. BOULARDII) 250 MG CAP PO SCH (07:55)
[2020-06-26] MEDS: CHOLECALCIFEROL (VITD3) 2,000 UNIT CAP/TAB PO SCH (07:55)
[2020-06-26] MEDS: ASCORBIC ACID 1,000 MG TAB PO SCH (07:55)
[2020-06-26] MEDS: ZINC SULFATE 220mg CAP or TAB PO SCH (07:55)
[2020-06-26 08:30] LABS: INR 1.23 (0.9-1.15)
[2020-06-26 08:57] LABS: Partial Thromboplastin Time 114.4 sec (23.0-31.2)
[2020-06-26] MEDS: LINEZOLID 600MG/300ML 300 ML IV SCH ×2 (10:00→20:25)
[2020-06-26 10:45] LABS: Band Neutrophils % (manual) 8; Eosinophils % (manual) 1 (0-7); Lymphocytes % (manual) 13 (10.0-50.0); Metamyelocytes % 7; Monocytes % (manual) 12 (0-12); Myelocytes % 3
[2020-06-26] MEDS ORDERED: POTASSIUM CHL 20MEQ/100ML 100 ML IV SCH (12:00)
[2020-06-26] MEDS ORDERED: hydrALAZINE HCL 20 MG/ML VL IV PRN (12:00)
[2020-06-26] MEDS: ENOXAPARIN SOD 100 MG/1 ML SYRINGE SC SCH ×2 (15:00→20:25)
[2020-06-26] MEDS: PROPOFOL 100 ML IV SCH (21:00)
[2020-06-27] VITALS (102 sets, daily range): BP systolic 89–150; BP diastolic 38–89
[2020-06-27] MEDS: PROPOFOL 100 ML IV SCH ×6 (01:05→21:55)
[2020-06-27 02:37] LABS: Partial Thromboplastin Time < 20.0 sec (23.0-31.2)
[2020-06-27] MEDS: MIDAZOLAM DRIP 50 mg/50mL 50 ML IV SCH ×6 (03:04→21:55)
[2020-06-27] MEDS: fentaNYL Drip 2500mCg/250mlNS 250 ML IV SCH ×2 (04:47→18:00)
[2020-06-27] MEDS: MEROPENEM 1GM IVPB 100 ML IV SCH ×3 (05:00→23:22)
[2020-06-27] MEDS: InsuLIN REG 1unit/0.01ml Soln (100units/ml) SC SCH ×4 (06:00→18:27)
[2020-06-27] MEDS: VANCOMYCIN HCL 125MG/5ML ORAL SOL GT SCH ×4 (06:13→21:45)
[2020-06-27] MEDS: ACCU-CHEK COMFORT CURVE STRIP VI SCH ×4 (06:13→18:26)
[2020-06-27 08:50] LABS: Calcium 7.6 mg/dL (8.5-10.1)
[2020-06-27 08:54] LABS: Bilirubin, Total 0.5 mg/dL (0.2-1.0); Total Protein 6.1 g/dL (6.4-8.2)
[2020-06-27 09:52] LABS: Potassium 5.8 mmol/L (3.5-5.1)
[2020-06-27] MEDS: FAMOTIDINE (10MG/ML) 2ML VL IV SCH ×2 (09:54→21:45)
[2020-06-27] MEDS: SODIUM CHLOR 0.9% PF (SALINE LOCK) 10ML VIAL/SYR IV SCH ×2 (09:54→21:45)
[2020-06-27] MEDS: DexAMETHasone SOD PHOS 10MG/1ML VIAL INJ IV SCH (09:54)
[2020-06-27] MEDS: FUROSEMIDE 40 MG/4 ML VIAL IV SCH (09:54)
[2020-06-27] MEDS: LINEZOLID 600MG/300ML 300 ML IV SCH ×2 (09:55→21:00)
[2020-06-27] MEDS: POTASSIUM EFFERVESENT TAB 25 MEQ GT SCH (09:55)
[2020-06-27] MEDS: ZINC SULFATE 220mg CAP or TAB PO SCH (10:30)
[2020-06-27] MEDS: ASCORBIC ACID 1,000 MG TAB PO SCH (10:30)
[2020-06-27] MEDS: CHOLECALCIFEROL (VITD3) 2,000 UNIT CAP/TAB PO SCH (10:30)
[2020-06-27] MEDS: FLORASTOR (S. BOULARDII) 250 MG CAP PO SCH (10:30)
[2020-06-27] MEDS: ENOXAPARIN SOD 100 MG/1 ML SYRINGE SC SCH ×2 (10:30→21:45)
[2020-06-27] MEDS: ATRACURIUM BESYLATE 1,000 MG in D5W 5% 150 ML IV SCH (12:34)
[2020-06-27] MEDS ORDERED: NOREPINEPHRINE 8 MG/250ML KIT 250 ML IV ONE (19:00)
[2020-06-27] MEDS: NOREPINEPHRINE 8 MG/250ML KIT 250 ML IV SCH (21:30)
[2020-06-28] VITALS (105 sets, daily range): BP systolic 87–126; BP diastolic 38–78
[2020-06-28] MEDS: PROPOFOL 100 ML IV SCH ×7 (02:00→21:00)
[2020-06-28] MEDS: MIDAZOLAM DRIP 50 mg/50mL 50 ML IV SCH ×5 (02:00→21:00)
[2020-06-28] MEDS: fentaNYL Drip 2500mCg/250mlNS 250 ML IV SCH ×2 (05:18→19:30)
[2020-06-28] MEDS: VANCOMYCIN HCL 125MG/5ML ORAL SOL GT SCH (05:24)
[2020-06-28] MEDS: MEROPENEM 1GM IVPB 100 ML IV SCH ×3 (05:24→23:15)
[2020-06-28] MEDS: InsuLIN REG 1unit/0.01ml Soln (100units/ml) SC SCH ×4 (05:24→18:27)
[2020-06-28] MEDS: ACCU-CHEK COMFORT CURVE STRIP VI SCH ×4 (05:25→18:00)
[2020-06-28 05:54] LABS: Hematocrit 31.5 % (41.0-53.0); Hemoglobin 10.2 g/dL (13.5-17.5); Mean Corpuscular Hemoglobin 31.6 pg (28.0-32.0); Mean Corpuscular Hgb Conc. 32.4 g/dL (32.0-36.0); Mean Corpuscular Volume 97.7 fL (80.0-100.0); Platelet Count (auto) 372 10^3/uL (140-450); Red Blood Cells 3.22 10^6/uL (4.5-5.90); Red Cell Distribution Width 19.2 % (11.8-14.3); White Blood Cell 16.8 10^3/uL (4.4-10.8)
[2020-06-28 05:57] LABS: Basophils % (manual) 0 (0.0-2.0); Blast Cells 0; Eosinophils % (manual) 0 (0-7); Potassium 4.6 mmol/L (3.5-5.1); Reactive Lymphocytes 0
[2020-06-28 06:00] LABS: BUN/Creatinine Ratio 30.4; Calcium 8.5 mg/dL (8.5-10.1); Magnesium 2.3 mg/dL (1.6-2.6)
[2020-06-28 06:40] LABS: Band Neutrophils % (manual) 15; Lymphocytes % (manual) 17 (10.0-50.0); Metamyelocytes % 1; Monocytes % (manual) 6 (0-12); Myelocytes % 3; Promyelocytes % 1
[2020-06-28] MEDS: DexAMETHasone SOD PHOS 10MG/1ML VIAL INJ IV SCH (09:08)
[2020-06-28] MEDS: SODIUM CHLOR 0.9% PF (SALINE LOCK) 10ML VIAL/SYR IV SCH ×2 (09:08→21:18)
[2020-06-28] MEDS: FUROSEMIDE 40 MG/4 ML VIAL IV SCH (09:08)
[2020-06-28] MEDS: FAMOTIDINE (10MG/ML) 2ML VL IV SCH ×2 (09:08→21:17)
[2020-06-28] MEDS: LINEZOLID 600MG/300ML 300 ML IV SCH ×2 (09:09→21:18)
[2020-06-28] MEDS: ZINC SULFATE 220mg CAP or TAB PO SCH (10:16)
[2020-06-28] MEDS: CHOLECALCIFEROL (VITD3) 2,000 UNIT CAP/TAB PO SCH (10:17)
[2020-06-28] MEDS: ENOXAPARIN SOD 100 MG/1 ML SYRINGE SC SCH ×2 (10:17→21:18)
[2020-06-28] MEDS: FLORASTOR (S. BOULARDII) 250 MG CAP PO SCH (10:17)
[2020-06-28] MEDS: ASCORBIC ACID 1,000 MG TAB PO SCH (10:17)
[2020-06-28] MEDS: ATRACURIUM BESYLATE 1,000 MG in D5W 5% 150 ML IV SCH (12:13)
[2020-06-28] MEDS: NOREPINEPHRINE 8 MG/250ML KIT 250 ML IV SCH (22:07)
[2020-06-29] VITALS (107 sets, daily range): BP systolic 87–137; BP diastolic 41–88
[2020-06-29] MEDS: PROPOFOL 100 ML IV SCH ×4 (01:00→22:07)
[2020-06-29] MEDS: MIDAZOLAM DRIP 50 mg/50mL 50 ML IV SCH ×6 (02:15→21:22)
[2020-06-29] MEDS ORDERED: ATRACURIUM BESYLATE (10 MG/ ML) 10 ML VIAL ONE (04:59)
[2020-06-29] MEDS: MEROPENEM 1GM IVPB 100 ML IV SCH ×3 (06:00→23:00)
[2020-06-29] MEDS: fentaNYL Drip 2500mCg/250mlNS 250 ML IV SCH ×3 (06:00→19:30)
[2020-06-29] MEDS: InsuLIN REG 1unit/0.01ml Soln (100units/ml) SC SCH ×4 (06:00→17:57)
[2020-06-29] MEDS: ACCU-CHEK COMFORT CURVE STRIP VI SCH ×4 (06:29→17:56)
[2020-06-29] MEDS: ATRACURIUM BESYLATE 1,000 MG in D5W 5% 150 ML IV SCH (09:00)
[2020-06-29] MEDS: FAMOTIDINE (10MG/ML) 2ML VL IV SCH ×2 (09:02→20:15)
[2020-06-29] MEDS: SODIUM CHLOR 0.9% PF (SALINE LOCK) 10ML VIAL/SYR IV SCH ×2 (09:02→20:14)
[2020-06-29] MEDS: DexAMETHasone SOD PHOS 10MG/1ML VIAL INJ IV SCH (09:02)
[2020-06-29] MEDS: LINEZOLID 600MG/300ML 300 ML IV SCH ×2 (09:02→20:14)
[2020-06-29] MEDS: CHOLECALCIFEROL (VITD3) 2,000 UNIT CAP/TAB PO SCH (10:00)
[2020-06-29] MEDS: ENOXAPARIN SOD 100 MG/1 ML SYRINGE SC SCH ×2 (10:00→20:15)
[2020-06-29] MEDS: FLORASTOR (S. BOULARDII) 250 MG CAP PO SCH (10:00)
[2020-06-29] MEDS: ASCORBIC ACID 1,000 MG TAB PO SCH (10:00)
[2020-06-29] MEDS: ZINC SULFATE 220mg CAP or TAB PO SCH (10:00)
[2020-06-29 10:54] LABS: Hematocrit 28.3 % (41.0-53.0); Hemoglobin 9.3 g/dL (13.5-17.5); Mean Corpuscular Hemoglobin 31.7 pg (28.0-32.0); Mean Corpuscular Hgb Conc. 32.8 g/dL (32.0-36.0); Mean Corpuscular Volume 96.5 fL (80.0-100.0); Platelet Count (auto) 399 10^3/uL (140-450); Red Blood Cells 2.93 10^6/uL (4.5-5.90); Red Cell Distribution Width 18.8 % (11.8-14.3); White Blood Cell 17.6 10^3/uL (4.4-10.8)
[2020-06-29 11:01] LABS: Calcium 8.5 mg/dL (8.5-10.1); Magnesium 2.3 mg/dL (1.6-2.6); Potassium 3.1 mmol/L (3.5-5.1)
[2020-06-29 11:04] LABS: INR 1.08 (0.9-1.15); Partial Thromboplastin Time 27.9 sec (23.0-31.2)
[2020-06-29 11:06] LABS: BUN/Creatinine Ratio 25.9; Bilirubin, Total 0.3 mg/dL (0.2-1.0); Total Protein 5.8 g/dL (6.4-8.2)
[2020-06-29 11:14] LABS: Basophils % (manual) 0 (0.0-2.0); Blast Cells 0; Eosinophils % (manual) 0 (0-7); Promyelocytes % 0; Reactive Lymphocytes 0
[2020-06-29 14:13] LABS: Lymphocytes % (manual) 18 (10.0-50.0); Monocytes % (manual) 8 (0-12); Myelocytes % 2
[2020-06-29 14:14] LABS: Band Neutrophils % (manual) 11; Metamyelocytes % 4
[2020-06-29] MEDS: NOREPINEPHRINE 8 MG/250ML KIT 250 ML IV SCH (20:05)
[2020-06-30] VITALS (103 sets, daily range): BP systolic 93–153; BP diastolic 43–97
[2020-06-30] MEDS: ACCU-CHEK COMFORT CURVE STRIP VI SCH ×5 (00:12→23:49)
[2020-06-30] MEDS: MIDAZOLAM DRIP 50 mg/50mL 50 ML IV SCH ×4 (01:32→13:30)
[2020-06-30] MEDS: PROPOFOL 100 ML IV SCH ×5 (01:32→17:59)
[2020-06-30] MEDS: ATRACURIUM BESYLATE 1,000 MG in D5W 5% 150 ML IV SCH (04:45)
[2020-06-30] MEDS: fentaNYL Drip 2500mCg/250mlNS 250 ML IV SCH ×2 (05:15→15:35)
[2020-06-30] MEDS: MEROPENEM 1GM IVPB 100 ML IV SCH ×3 (05:27→22:00)
[2020-06-30] MEDS: InsuLIN REG 1unit/0.01ml Soln (100units/ml) SC SCH ×5 (06:00→23:49)
[2020-06-30] MEDS: DexAMETHasone SOD PHOS 10MG/1ML VIAL INJ IV SCH (09:55)
[2020-06-30] MEDS: SODIUM CHLOR 0.9% PF (SALINE LOCK) 10ML VIAL/SYR IV SCH ×2 (09:55→21:51)
[2020-06-30] MEDS: FAMOTIDINE (10MG/ML) 2ML VL IV SCH ×2 (09:55→21:52)
[2020-06-30] MEDS: ASCORBIC ACID 1,000 MG TAB PO SCH (09:56)
[2020-06-30] MEDS: LINEZOLID 600MG/300ML 300 ML IV SCH ×2 (09:56→21:56)
[2020-06-30] MEDS: FLORASTOR (S. BOULARDII) 250 MG CAP PO SCH (09:56)
[2020-06-30] MEDS: ENOXAPARIN SOD 100 MG/1 ML SYRINGE SC SCH ×2 (09:56→21:54)
[2020-06-30] MEDS: ZINC SULFATE 220mg CAP or TAB PO SCH (09:56)
[2020-06-30] MEDS: CHOLECALCIFEROL (VITD3) 2,000 UNIT CAP/TAB PO SCH (09:56)
[2020-06-30] MEDS: ROCURONIUM 10MG/ML 10ML VIAL IV PRN (11:30)
[2020-06-30] MEDS: NOREPINEPHRINE 8 MG/250ML KIT 250 ML IV SCH (21:30)
[2020-07-01] VITALS (101 sets, daily range): BP systolic 93–156; BP diastolic 48–99
[2020-07-01 03:00] LABS: Hematocrit 29.5 % (41.0-53.0); Hemoglobin 9.5 g/dL (13.5-17.5); Mean Corpuscular Hemoglobin 31.3 pg (28.0-32.0); Mean Corpuscular Hgb Conc. 32.4 g/dL (32.0-36.0); Mean Corpuscular Volume 96.6 fL (80.0-100.0); Platelet Count (auto) 394 10^3/uL (140-450); Red Blood Cells 3.06 10^6/uL (4.5-5.90); Red Cell Distribution Width 19.3 % (11.8-14.3); White Blood Cell 14.5 10^3/uL (4.4-10.8)
[2020-07-01] MEDS: ATRACURIUM BESYLATE 1,000 MG in D5W 5% 150 ML IV SCH (03:12)
[2020-07-01 03:13] LABS: Basophils % (manual) 0 (0.0-2.0); Blast Cells 0; Eosinophils % (manual) 0 (0-7); Promyelocytes % 0; Reactive Lymphocytes 0
[2020-07-01 03:21] LABS: BUN/Creatinine Ratio 21.4; Calcium 8.4 mg/dL (8.5-10.1); Potassium 3.6 mmol/L (3.5-5.1)
[2020-07-01 03:24] LABS: Bilirubin, Total 0.4 mg/dL (0.2-1.0); Total Protein 5.8 g/dL (6.4-8.2)
[2020-07-01 05:57] LABS: Band Neutrophils % (manual) 4; Lymphocytes % (manual) 27 (10.0-50.0); Metamyelocytes % 1; Monocytes % (manual) 8 (0-12); Myelocytes % 2
[2020-07-01] MEDS: ACCU-CHEK COMFORT CURVE STRIP VI SCH ×3 (06:00→17:39)
[2020-07-01] MEDS: InsuLIN REG 1unit/0.01ml Soln (100units/ml) SC SCH ×3 (06:00→17:40)
[2020-07-01] MEDS: MEROPENEM 1GM IVPB 100 ML IV SCH ×3 (06:00→22:00)
[2020-07-01] MEDS: PROPOFOL 100 ML IV SCH ×3 (08:00→15:15)
[2020-07-01] MEDS: ENOXAPARIN SOD 100 MG/1 ML SYRINGE SC SCH ×2 (09:11→22:08)
[2020-07-01] MEDS: DexAMETHasone SOD PHOS 10MG/1ML VIAL INJ IV SCH (09:11)
[2020-07-01] MEDS: FAMOTIDINE (10MG/ML) 2ML VL IV SCH ×2 (09:11→22:08)
[2020-07-01] MEDS: CHOLECALCIFEROL (VITD3) 2,000 UNIT CAP/TAB PO SCH (09:12)
[2020-07-01] MEDS: ZINC SULFATE 220mg CAP or TAB PO SCH (09:12)
[2020-07-01] MEDS: FLORASTOR (S. BOULARDII) 250 MG CAP PO SCH (09:12)
[2020-07-01] MEDS: ASCORBIC ACID 1,000 MG TAB PO SCH (09:12)
[2020-07-01] MEDS: LINEZOLID 600MG/300ML 300 ML IV SCH ×2 (09:13→22:00)
[2020-07-01] MEDS: SODIUM CHLOR 0.9% PF (SALINE LOCK) 10ML VIAL/SYR IV SCH ×2 (09:13→22:00)
[2020-07-01] MEDS: MIDAZOLAM DRIP 50 mg/50mL 50 ML IV SCH ×2 (11:00→15:14)
[2020-07-01] MEDS: fentaNYL Drip 2500mCg/250mlNS 250 ML IV SCH (11:00)
[2020-07-01] MEDS: NOREPINEPHRINE 8 MG/250ML KIT 250 ML IV SCH (21:30)
[2020-07-02] VITALS (104 sets, daily range): BP systolic 87–152; BP diastolic 46–107
[2020-07-02 02:48] LABS: Hematocrit 32.3 % (41.0-53.0); Hemoglobin 10.4 g/dL (13.5-17.5); Mean Corpuscular Hemoglobin 30.9 pg (28.0-32.0); Mean Corpuscular Hgb Conc. 32.2 g/dL (32.0-36.0); Mean Corpuscular Volume 96.1 fL (80.0-100.0); Platelet Count (auto) 393 10^3/uL (140-450); Red Blood Cells 3.36 10^6/uL (4.5-5.90); Red Cell Distribution Width 18.9 % (11.8-14.3); White Blood Cell 15.2 10^3/uL (4.4-10.8)
[2020-07-02 02:51] LABS: BUN/Creatinine Ratio 19.4; Calcium 8.5 mg/dL (8.5-10.1); Potassium 3.5 mmol/L (3.5-5.1)
[2020-07-02 02:58] LABS: Basophils % (manual) 0 (0.0-2.0); Blast Cells 0; Eosinophils % (manual) 0 (0-7); Promyelocytes % 0; Reactive Lymphocytes 0
[2020-07-02] MEDS: ATRACURIUM BESYLATE 1,000 MG in D5W 5% 150 ML IV SCH ×2 (03:04→14:30)
[2020-07-02 04:12] LABS: Band Neutrophils % (manual) 11; Lymphocytes % (manual) 34 (10.0-50.0); Metamyelocytes % 1; Monocytes % (manual) 5 (0-12); Myelocytes % 1
[2020-07-02] MEDS: InsuLIN REG 1unit/0.01ml Soln (100units/ml) SC SCH ×4 (06:00→18:00)
[2020-07-02] MEDS: MEROPENEM 1GM IVPB 100 ML IV SCH ×3 (06:00→22:06)
[2020-07-02] MEDS: ACCU-CHEK COMFORT CURVE STRIP VI SCH ×4 (06:00→18:00)
[2020-07-02] MEDS: MIDAZOLAM DRIP 50 mg/50mL 50 ML IV SCH ×4 (08:15→21:25)
[2020-07-02] MEDS: PROPOFOL 100 ML IV SCH ×5 (08:45→23:03)
[2020-07-02] MEDS: ROCURONIUM 10MG/ML 10ML VIAL IV PRN ×2 (09:49→12:00)
[2020-07-02] MEDS: CHOLECALCIFEROL (VITD3) 2,000 UNIT CAP/TAB PO SCH (09:50)
[2020-07-02] MEDS: DexAMETHasone SOD PHOS 10MG/1ML VIAL INJ IV SCH (09:50)
[2020-07-02] MEDS: FAMOTIDINE (10MG/ML) 2ML VL IV SCH ×2 (09:50→22:07)
[2020-07-02] MEDS: ZINC SULFATE 220mg CAP or TAB PO SCH (09:50)
[2020-07-02] MEDS: ASCORBIC ACID 1,000 MG TAB PO SCH (09:51)
[2020-07-02] MEDS: ENOXAPARIN SOD 100 MG/1 ML SYRINGE SC SCH ×2 (09:51→22:08)
[2020-07-02] MEDS: FLORASTOR (S. BOULARDII) 250 MG CAP PO SCH (09:51)
[2020-07-02] MEDS: SODIUM CHLOR 0.9% PF (SALINE LOCK) 10ML VIAL/SYR IV SCH ×2 (09:51→22:07)
[2020-07-02] MEDS: ERGOCALCIFEROL 50,000 UNIT(1.25MG) CAP PO SCH (15:00)
[2020-07-02] MEDS: fentaNYL Drip 2500mCg/250mlNS 250 ML IV SCH (16:00)
[2020-07-03] VITALS (101 sets, daily range): BP systolic 88–142; BP diastolic 40–95
[2020-07-03] MEDS: fentaNYL Drip 2500mCg/250mlNS 250 ML IV SCH ×4 (01:34→22:56)
[2020-07-03] MEDS: MIDAZOLAM DRIP 50 mg/50mL 50 ML IV SCH ×7 (02:06→23:54)
[2020-07-03] MEDS: PROPOFOL 100 ML IV SCH ×6 (02:31→21:15)
[2020-07-03 05:11] LABS: Hematocrit 32.4 % (41.0-53.0); Hemoglobin 10.6 g/dL (13.5-17.5); Mean Corpuscular Hemoglobin 32.1 pg (28.0-32.0); Mean Corpuscular Hgb Conc. 32.9 g/dL (32.0-36.0); Mean Corpuscular Volume 97.6 fL (80.0-100.0); Platelet Count (auto) 351 10^3/uL (140-450); Red Blood Cells 3.32 10^6/uL (4.5-5.90); Red Cell Distribution Width 19.3 % (11.8-14.3); White Blood Cell 14.9 10^3/uL (4.4-10.8)
[2020-07-03 05:14] LABS: Basophils % (manual) 0 (0.0-2.0); Blast Cells 0; Promyelocytes % 0; Reactive Lymphocytes 0
[2020-07-03 05:39] LABS: Calcium 8.2 mg/dL (8.5-10.1); Potassium 3.9 mmol/L (3.5-5.1)
[2020-07-03] MEDS: InsuLIN REG 1unit/0.01ml Soln (100units/ml) SC SCH ×4 (06:00→17:21)
[2020-07-03] MEDS: MEROPENEM 1GM IVPB 100 ML IV SCH ×3 (06:07→20:32)
[2020-07-03] MEDS: ACCU-CHEK COMFORT CURVE STRIP VI SCH ×4 (06:08→17:30)
[2020-07-03] MEDS: ATRACURIUM BESYLATE 1,000 MG in D5W 5% 150 ML IV SCH (06:56)
[2020-07-03 08:34] LABS: Band Neutrophils % (manual) 6; Eosinophils % (manual) 1 (0-7); Lymphocytes % (manual) 30 (10.0-50.0); Metamyelocytes % 1; Monocytes % (manual) 7 (0-12); Myelocytes % 2
[2020-07-03] MEDS: FAMOTIDINE (10MG/ML) 2ML VL IV SCH ×2 (10:00→20:32)
[2020-07-03] MEDS: FLORASTOR (S. BOULARDII) 250 MG CAP PO SCH (10:00)
[2020-07-03] MEDS: ASCORBIC ACID 1,000 MG TAB PO SCH (10:00)
[2020-07-03] MEDS: ENOXAPARIN SOD 100 MG/1 ML SYRINGE SC SCH ×2 (10:00→20:32)
[2020-07-03] MEDS: CHOLECALCIFEROL (VITD3) 2,000 UNIT CAP/TAB PO SCH (10:00)
[2020-07-03] MEDS: DexAMETHasone SOD PHOS 10MG/1ML VIAL INJ IV SCH (10:00)
[2020-07-03] MEDS: ZINC SULFATE 220mg CAP or TAB PO SCH (10:00)
[2020-07-03] MEDS: SODIUM CHLOR 0.9% PF (SALINE LOCK) 10ML VIAL/SYR IV SCH ×2 (10:00→20:33)
[2020-07-04] VITALS (104 sets, daily range): BP systolic 80–147; BP diastolic 39–94
[2020-07-04] MEDS: NOREPINEPHRINE 8 MG/250ML KIT 250 ML IV SCH (00:15)
[2020-07-04] MEDS: ACCU-CHEK COMFORT CURVE STRIP VI SCH ×5 (00:48→23:11)
[2020-07-04] MEDS: ATRACURIUM BESYLATE 1,000 MG in D5W 5% 150 ML IV SCH (01:57)
[2020-07-04] MEDS: PROPOFOL 100 ML IV SCH ×6 (01:57→22:30)
[2020-07-04] MEDS: MIDAZOLAM DRIP 50 mg/50mL 50 ML IV SCH ×7 (01:58→23:30)
[2020-07-04] MEDS: MEROPENEM 1GM IVPB 100 ML IV SCH ×3 (05:30→22:14)
[2020-07-04] MEDS: InsuLIN REG 1unit/0.01ml Soln (100units/ml) SC SCH ×5 (05:30→23:10)
[2020-07-04 05:31] LABS: Hematocrit 33.3 % (41.0-53.0); Hemoglobin 10.9 g/dL (13.5-17.5); Mean Corpuscular Hemoglobin 32.2 pg (28.0-32.0); Mean Corpuscular Hgb Conc. 32.7 g/dL (32.0-36.0); Mean Corpuscular Volume 98.4 fL (80.0-100.0); Platelet Count (auto) 334 10^3/uL (140-450); Red Blood Cells 3.38 10^6/uL (4.5-5.90); Red Cell Distribution Width 19.2 % (11.8-14.3); White Blood Cell 16.3 10^3/uL (4.4-10.8)
[2020-07-04 05:43] LABS: Basophils % (manual) 0 (0.0-2.0); Blast Cells 0; Promyelocytes % 0; Reactive Lymphocytes 0
[2020-07-04 05:47] LABS: Potassium 4.2 mmol/L (3.5-5.1)
[2020-07-04 05:53] LABS: BUN/Creatinine Ratio 17.4; Calcium 8.3 mg/dL (8.5-10.1)
[2020-07-04] MEDS: fentaNYL Drip 2500mCg/250mlNS 250 ML IV SCH ×3 (06:37→23:48)
[2020-07-04 06:39] LABS: Monocytes % (manual) 2 (0-12); Myelocytes % 2
[2020-07-04 06:41] LABS: Band Neutrophils % (manual) 15; Eosinophils % (manual) 2 (0-7); Lymphocytes % (manual) 29 (10.0-50.0); Metamyelocytes % 3
[2020-07-04] MEDS: FAMOTIDINE (10MG/ML) 2ML VL IV SCH ×2 (10:01→22:14)
[2020-07-04] MEDS: DexAMETHasone SOD PHOS 10MG/1ML VIAL INJ IV SCH (10:01)
[2020-07-04] MEDS: ZINC SULFATE 220mg CAP or TAB PO SCH (10:02)
[2020-07-04] MEDS: FLORASTOR (S. BOULARDII) 250 MG CAP PO SCH (10:02)
[2020-07-04] MEDS: ASCORBIC ACID 1,000 MG TAB PO SCH (10:02)
[2020-07-04] MEDS: SODIUM CHLOR 0.9% PF (SALINE LOCK) 10ML VIAL/SYR IV SCH ×2 (10:02→22:14)
[2020-07-04] MEDS: CHOLECALCIFEROL (VITD3) 2,000 UNIT CAP/TAB PO SCH (10:03)
[2020-07-04] MEDS: ENOXAPARIN SOD 100 MG/1 ML SYRINGE SC SCH ×2 (10:03→22:14)
[2020-07-04] MEDS ORDERED: TPN PER PHARMACY 0 ML IV SCH (11:30)
[2020-07-04 11:53] LABS: Albumin 2.2 g/dL (3.4-5.0)
[2020-07-04 11:59] LABS: Bilirubin, Direct 0.2 mg/dL (0-0.2); Bilirubin, Total 0.5 mg/dL (0.2-1.0); Phosphorus 2.9 mg/dL (2.5-4.90); Pre Albumin 46.5 mg/dL (20.0-40.0)
[2020-07-04] MEDS ORDERED: TPN PER PHARMACY IV NR ×7 (20:00)
[2020-07-05] VITALS (100 sets, daily range): BP systolic 88–163; BP diastolic 47–102
[2020-07-05] MEDS: PROPOFOL 100 ML IV SCH ×4 (02:02→22:00)
[2020-07-05] MEDS: ROCURONIUM 10MG/ML 10ML VIAL IV PRN (04:45)
[2020-07-05] MEDS: ATRACURIUM BESYLATE 1,000 MG in D5W 5% 150 ML IV SCH (04:45)
[2020-07-05 05:01] LABS: Hematocrit 29.3 % (41.0-53.0); Hemoglobin 9.6 g/dL (13.5-17.5); Mean Corpuscular Hemoglobin 31.6 pg (28.0-32.0); Mean Corpuscular Hgb Conc. 32.7 g/dL (32.0-36.0); Mean Corpuscular Volume 96.6 fL (80.0-100.0); Platelet Count (auto) 286 10^3/uL (140-450); Red Blood Cells 3.03 10^6/uL (4.5-5.90); Red Cell Distribution Width 18.8 % (11.8-14.3); White Blood Cell 15.1 10^3/uL (4.4-10.8)
[2020-07-05 05:03] LABS: Basophils % (manual) 0 (0.0-2.0); Blast Cells 0; Promyelocytes % 0; Reactive Lymphocytes 0
[2020-07-05 05:17] LABS: Albumin 1.9 g/dL (3.4-5.0); Calcium 8.1 mg/dL (8.5-10.1); Potassium 3.8 mmol/L (3.5-5.1)
[2020-07-05] MEDS: MEROPENEM 1GM IVPB 100 ML IV SCH ×3 (05:18→22:11)
[2020-07-05] MEDS: ACCU-CHEK COMFORT CURVE STRIP VI SCH ×3 (05:19→18:21)
[2020-07-05] MEDS: InsuLIN REG 1unit/0.01ml Soln (100units/ml) SC SCH ×3 (05:19→18:21)
[2020-07-05 05:20] LABS: Bilirubin, Total 0.4 mg/dL (0.2-1.0); Total Protein 5.5 g/dL (6.4-8.2)
[2020-07-05 05:26] LABS: BUN/Creatinine Ratio 15.2
[2020-07-05 05:46] LABS: Band Neutrophils % (manual) 13; Eosinophils % (manual) 1 (0-7); Lymphocytes % (manual) 28 (10.0-50.0); Metamyelocytes % 2; Monocytes % (manual) 6 (0-12); Myelocytes % 2
[2020-07-05] MEDS: fentaNYL Drip 2500mCg/250mlNS 250 ML IV SCH ×2 (07:30→15:38)
[2020-07-05] MEDS: DexAMETHasone SOD PHOS 10MG/1ML VIAL INJ IV SCH (09:30)
[2020-07-05] MEDS: FAMOTIDINE (10MG/ML) 2ML VL IV SCH ×2 (09:30→22:11)
[2020-07-05] MEDS: SODIUM CHLOR 0.9% PF (SALINE LOCK) 10ML VIAL/SYR IV SCH ×2 (09:30→22:11)
[2020-07-05] MEDS: FLORASTOR (S. BOULARDII) 250 MG CAP PO SCH (09:30)
[2020-07-05] MEDS ORDERED: SODIUM PHOSP 40 MEQ in D5W 5% 250 ML IV ONE (09:30)
[2020-07-05] MEDS: ZINC SULFATE 220mg CAP or TAB PO SCH (09:30)
[2020-07-05] MEDS: CHOLECALCIFEROL (VITD3) 2,000 UNIT CAP/TAB PO SCH (09:30)
[2020-07-05] MEDS: ENOXAPARIN SOD 100 MG/1 ML SYRINGE SC SCH ×2 (09:34→22:12)
[2020-07-05] MEDS: ASCORBIC ACID 1,000 MG TAB PO SCH (09:34)
[2020-07-05] MEDS ORDERED: DEXTROSE (50%) 50ML SYRG IV SCH (09:45)
[2020-07-05] MEDS ORDERED: TPN PER PHARMACY IV NR ×7 (20:00)
[2020-07-05] MEDS: NOREPINEPHRINE 8 MG/250ML KIT 250 ML IV SCH (21:30)
[2020-07-06] VITALS (107 sets, daily range): BP systolic 99–141; BP diastolic 58–89
[2020-07-06] MEDS: ATRACURIUM BESYLATE 1,000 MG in D5W 5% 150 ML IV SCH (04:45)
[2020-07-06] MEDS: ROCURONIUM 10MG/ML 10ML VIAL IV PRN (05:50)
[2020-07-06] MEDS: MEROPENEM 1GM IVPB 100 ML IV SCH ×3 (06:07→22:24)
[2020-07-06] MEDS: ACCU-CHEK COMFORT CURVE STRIP VI SCH ×4 (06:07→18:00)
[2020-07-06] MEDS: InsuLIN REG 1unit/0.01ml Soln (100units/ml) SC SCH ×4 (06:08→18:00)
[2020-07-06 06:15] LABS: Hemoglobin 9.5 g/dL (13.5-17.5); Platelet Count (auto) 234 10^3/uL (140-450); White Blood Cell 13.5 10^3/uL (4.4-10.8)
[2020-07-06 06:18] LABS: Hematocrit 26.3 % (41.0-53.0); Mean Corpuscular Hemoglobin 35.5 pg (28.0-32.0); Mean Corpuscular Volume 98.7 fL (80.0-100.0); Red Blood Cells 2.66 10^6/uL (4.5-5.90); Red Cell Distribution Width 19.9 % (11.8-14.3)
[2020-07-06 06:31] LABS: Basophils % (manual) 0 (0.0-2.0); Blast Cells 0; Promyelocytes % 0; Reactive Lymphocytes 0
[2020-07-06 06:37] LABS: Potassium 3.4 mmol/L (3.5-5.1)
[2020-07-06 06:44] LABS: Albumin 1.6 g/dL (3.4-5.0); Bilirubin, Total 0.7 mg/dL (0.2-1.0); Calcium 6.7 mg/dL (8.5-10.1); Magnesium 1.8 mg/dL (1.6-2.6); Phosphorus 1.6 mg/dL (2.5-4.90)
[2020-07-06 07:13] LABS: BUN/Creatinine Ratio 33.3
[2020-07-06] MEDS: ZINC SULFATE 220mg CAP or TAB PO SCH (10:00)
[2020-07-06] MEDS: FAMOTIDINE (10MG/ML) 2ML VL IV SCH ×2 (10:00→20:20)
[2020-07-06] MEDS: DexAMETHasone SOD PHOS 10MG/1ML VIAL INJ IV SCH (10:00)
[2020-07-06] MEDS: ENOXAPARIN SOD 100 MG/1 ML SYRINGE SC SCH ×2 (10:00→20:20)
[2020-07-06] MEDS: ASCORBIC ACID 1,000 MG TAB PO SCH (10:00)
[2020-07-06] MEDS: SODIUM CHLOR 0.9% PF (SALINE LOCK) 10ML VIAL/SYR IV SCH ×2 (10:00→20:20)
[2020-07-06] MEDS: FLORASTOR (S. BOULARDII) 250 MG CAP PO SCH (10:00)
[2020-07-06] MEDS: CHOLECALCIFEROL (VITD3) 2,000 UNIT CAP/TAB PO SCH (10:00)
[2020-07-06] MEDS ORDERED: POTASSIUM PHOSPHATE 44 MEQ in D5W 5% 250 ML IV ONE (10:15)
[2020-07-06 11:00] LABS: Band Neutrophils % (manual) 15; Eosinophils % (manual) 6 (0-7); Lymphocytes % (manual) 28 (10.0-50.0); Metamyelocytes % 2; Monocytes % (manual) 1 (0-12); Myelocytes % 5
[2020-07-06] MEDS: MIDAZOLAM DRIP 50 mg/50mL 50 ML IV SCH ×2 (16:00→22:24)
[2020-07-06] MEDS: fentaNYL Drip 2500mCg/250mlNS 250 ML IV SCH (17:12)
[2020-07-06] MEDS ORDERED: TPN PER PHARMACY IV NR ×9 (20:00)
[2020-07-06] MEDS: NOREPINEPHRINE 8 MG/250ML KIT 250 ML IV SCH (21:30)
[2020-07-06] MEDS: PROPOFOL 100 ML IV SCH ×2 (21:35)
[2020-07-07] VITALS (97 sets, daily range): BP systolic 93–122; BP diastolic 43–72
[2020-07-07] MEDS: fentaNYL Drip 2500mCg/250mlNS 250 ML IV SCH (00:15)
[2020-07-07] MEDS: MIDAZOLAM DRIP 50 mg/50mL 50 ML IV SCH ×2 (02:35→06:34)
[2020-07-07] MEDS: ACCU-CHEK COMFORT CURVE STRIP VI SCH ×5 (02:35→23:27)
[2020-07-07] MEDS: InsuLIN REG 1unit/0.01ml Soln (100units/ml) SC SCH ×5 (02:35→23:27)
[2020-07-07] MEDS: PROPOFOL 100 ML IV SCH ×2 (03:10→06:33)
[2020-07-07] MEDS: ATRACURIUM BESYLATE 1,000 MG in D5W 5% 150 ML IV SCH (04:45)
[2020-07-07] MEDS: ROCURONIUM 10MG/ML 10ML VIAL IV PRN (05:28)
[2020-07-07] MEDS: MEROPENEM 1GM IVPB 100 ML IV SCH ×3 (05:32→23:27)
[2020-07-07 06:13] LABS: Hematocrit 30.1 % (41.0-53.0); Hemoglobin 9.9 g/dL (13.5-17.5); Mean Corpuscular Hemoglobin 32.3 pg (28.0-32.0); Mean Corpuscular Hgb Conc. 32.9 g/dL (32.0-36.0); Mean Corpuscular Volume 98.2 fL (80.0-100.0); Platelet Count (auto) 312 10^3/uL (140-450); Red Blood Cells 3.07 10^6/uL (4.5-5.90); Red Cell Distribution Width 19.5 % (11.8-14.3)
[2020-07-07 06:24] LABS: Basophils % (manual) 0 (0.0-2.0); Blast Cells 0; Metamyelocytes % 0; Promyelocytes % 0; Reactive Lymphocytes 0
[2020-07-07 07:02] LABS: Potassium 4.3 mmol/L (3.5-5.1)
[2020-07-07 07:03] LABS: Albumin 1.9 g/dL (3.4-5.0); BUN/Creatinine Ratio 43.8; Bilirubin, Total 0.4 mg/dL (0.2-1.0); Calcium 8.3 mg/dL (8.5-10.1); Phosphorus 1.9 mg/dL (2.5-4.90); Total Protein 5.6 g/dL (6.4-8.2)
[2020-07-07 07:05] LABS: Magnesium 2.1 mg/dL (1.6-2.6)
[2020-07-07 07:53] LABS: Band Neutrophils % (manual) 6; Eosinophils % (manual) 1 (0-7); Lymphocytes % (manual) 23 (10.0-50.0); Monocytes % (manual) 5 (0-12); Myelocytes % 2
[2020-07-07] MEDS: CHOLECALCIFEROL (VITD3) 2,000 UNIT CAP/TAB PO SCH (10:09)
[2020-07-07] MEDS: FLORASTOR (S. BOULARDII) 250 MG CAP PO SCH (10:09)
[2020-07-07] MEDS: FAMOTIDINE (10MG/ML) 2ML VL IV SCH ×2 (10:09→23:27)
[2020-07-07] MEDS: SODIUM CHLOR 0.9% PF (SALINE LOCK) 10ML VIAL/SYR IV SCH ×2 (10:09→23:27)
[2020-07-07] MEDS: ENOXAPARIN SOD 100 MG/1 ML SYRINGE SC SCH (10:09)
[2020-07-07] MEDS: DexAMETHasone SOD PHOS 10MG/1ML VIAL INJ IV SCH (10:09)
[2020-07-07] MEDS: ASCORBIC ACID 1,000 MG TAB PO SCH (10:09)
[2020-07-07] MEDS: ZINC SULFATE 220mg CAP or TAB PO SCH (10:09)
[2020-07-07] MEDS ORDERED: POTASSIUM PHOSPHATE 22 MEQ in SODIUM CHL 0.9% 100 ML IV ONE (11:30)
[2020-07-07] MEDS ORDERED: TPN PER PHARMACY IV NR ×6 (20:00)
[2020-07-07] MEDS: NOREPINEPHRINE 8 MG/250ML KIT 250 ML IV SCH (21:30)
[2020-07-08] VITALS (105 sets, daily range): BP systolic 94–135; BP diastolic 55–74
[2020-07-08] MEDS: ATRACURIUM BESYLATE 1,000 MG in D5W 5% 150 ML IV SCH (04:45)
[2020-07-08 05:33] LABS: Hematocrit 30.3 % (41.0-53.0); Hemoglobin 9.8 g/dL (13.5-17.5); Mean Corpuscular Hemoglobin 31.8 pg (28.0-32.0); Mean Corpuscular Hgb Conc. 32.5 g/dL (32.0-36.0); Platelet Count (auto) 339 10^3/uL (140-450); Red Blood Cells 3.09 10^6/uL (4.5-5.90); White Blood Cell 15.7 10^3/uL (4.4-10.8)
[2020-07-08] MEDS: MEROPENEM 1GM IVPB 100 ML IV SCH ×3 (06:00→22:00)
[2020-07-08] MEDS: InsuLIN REG 1unit/0.01ml Soln (100units/ml) SC SCH ×3 (06:00→17:12)
[2020-07-08] MEDS: ACCU-CHEK COMFORT CURVE STRIP VI SCH ×3 (06:00→17:12)
[2020-07-08 06:06] LABS: Calcium 8.3 mg/dL (8.5-10.1); Magnesium 2.2 mg/dL (1.6-2.6); Potassium 4.4 mmol/L (3.5-5.1)
[2020-07-08 06:10] LABS: BUN/Creatinine Ratio 38.1; Bilirubin, Total 0.3 mg/dL (0.2-1.0); Phosphorus 2.7 mg/dL (2.5-4.90); Total Protein 5.5 g/dL (6.4-8.2)
[2020-07-08 06:20] LABS: Basophils % (manual) 0 (0.0-2.0); Blast Cells 0; Reactive Lymphocytes 0; Red Cell Distribution Width 20.4 % (11.8-14.3)
[2020-07-08 07:01] LABS: Band Neutrophils % (manual) 3; Eosinophils % (manual) 1 (0-7); Lymphocytes % (manual) 30 (10.0-50.0); Metamyelocytes % 2; Monocytes % (manual) 4 (0-12); Myelocytes % 2; Promyelocytes % 2
[2020-07-08] MEDS: DexAMETHasone SOD PHOS 10MG/1ML VIAL INJ IV SCH (09:48)
[2020-07-08] MEDS: ASCORBIC ACID 1,000 MG TAB PO SCH (09:49)
[2020-07-08] MEDS: FAMOTIDINE (10MG/ML) 2ML VL IV SCH ×2 (09:49→22:00)
[2020-07-08] MEDS: SODIUM CHLOR 0.9% PF (SALINE LOCK) 10ML VIAL/SYR IV SCH ×2 (09:49→22:00)
[2020-07-08] MEDS: PROPOFOL 100 ML IV SCH ×2 (09:49→12:58)
[2020-07-08] MEDS: ZINC SULFATE 220mg CAP or TAB PO SCH (09:49)
[2020-07-08] MEDS: FLORASTOR (S. BOULARDII) 250 MG CAP PO SCH (09:49)
[2020-07-08] MEDS: CHOLECALCIFEROL (VITD3) 2,000 UNIT CAP/TAB PO SCH (09:49)
[2020-07-08] MEDS: MIDAZOLAM DRIP 50 mg/50mL 50 ML IV SCH (09:50)
[2020-07-08] MEDS: NOREPINEPHRINE 8 MG/250ML KIT 250 ML IV SCH (13:56)
[2020-07-08] MEDS ORDERED: ENOXAPARIN SOD 100 MG/1 ML SYRINGE SC ONE (14:00)
[2020-07-08] MEDS: ROCURONIUM 10MG/ML 10ML VIAL IV PRN (14:11)
[2020-07-08] MEDS: fentaNYL Drip 2500mCg/250mlNS 250 ML IV SCH (16:00)
[2020-07-08] MEDS ORDERED: TPN PER PHARMACY IV NR ×8 (20:00)
[2020-07-08] MEDS: ENOXAPARIN SOD 100 MG/1 ML SYRINGE SC SCH (22:00)
[2020-07-09] VITALS (104 sets, daily range): BP systolic 90–149; BP diastolic 48–94
[2020-07-09] MEDS: InsuLIN REG 1unit/0.01ml Soln (100units/ml) SC SCH ×4 (06:00→17:42)
[2020-07-09] MEDS: MEROPENEM 1GM IVPB 100 ML IV SCH ×3 (06:06→22:14)
[2020-07-09] MEDS: ACCU-CHEK COMFORT CURVE STRIP VI SCH ×4 (06:06→17:43)
[2020-07-09 06:17] LABS: Potassium 4.1 mmol/L (3.5-5.1)
[2020-07-09 06:26] LABS: Albumin 1.8 g/dL (3.4-5.0); Bilirubin, Total 0.7 mg/dL (0.2-1.0); Calcium 7.2 mg/dL (8.5-10.1)
[2020-07-09 06:53] LABS: Total Protein 5.2 g/dL (6.4-8.2)
[2020-07-09] MEDS: ATRACURIUM BESYLATE 1,000 MG in D5W 5% 150 ML IV SCH (07:18)
[2020-07-09] MEDS: PROPOFOL 100 ML IV SCH ×3 (07:56→21:00)
[2020-07-09] MEDS: MIDAZOLAM DRIP 50 mg/50mL 50 ML IV SCH ×4 (08:00→21:00)
[2020-07-09] MEDS: DexAMETHasone SOD PHOS 10MG/1ML VIAL INJ IV SCH (09:35)
[2020-07-09] MEDS: FAMOTIDINE (10MG/ML) 2ML VL IV SCH ×2 (09:35→22:14)
[2020-07-09] MEDS: ZINC SULFATE 220mg CAP or TAB PO SCH (09:35)
[2020-07-09] MEDS: FLORASTOR (S. BOULARDII) 250 MG CAP PO SCH (09:35)
[2020-07-09] MEDS: SODIUM CHLOR 0.9% PF (SALINE LOCK) 10ML VIAL/SYR IV SCH ×2 (09:35→22:00)
[2020-07-09] MEDS: ENOXAPARIN SOD 100 MG/1 ML SYRINGE SC SCH ×2 (09:36→22:15)
[2020-07-09] MEDS: CHOLECALCIFEROL (VITD3) 2,000 UNIT CAP/TAB PO SCH (09:36)
[2020-07-09] MEDS: ASCORBIC ACID 1,000 MG TAB PO SCH (09:36)
[2020-07-09] MEDS ORDERED: SODIUM PHOSPHATES 40 MEQ in D5W 5% 250 ML IV ONE (11:00)
[2020-07-09] MEDS: ROCURONIUM 10MG/ML 10ML VIAL IV PRN (14:03)
[2020-07-09] MEDS: fentaNYL Drip 2500mCg/250mlNS 250 ML IV SCH ×2 (14:11→22:00)
[2020-07-09] MEDS: ERGOCALCIFEROL 50,000 UNIT(1.25MG) CAP PO SCH (14:22)
[2020-07-09] MEDS ORDERED: TPN PER PHARMACY IV NR ×9 (20:00)
[2020-07-09] MEDS: NOREPINEPHRINE 8 MG/250ML KIT 250 ML IV SCH (21:30)
[2020-07-10] VITALS (93 sets, daily range): BP systolic 89–158; BP diastolic 36–96
[2020-07-10] MEDS: PROPOFOL 100 ML IV SCH ×4 (00:30→22:30)
[2020-07-10] MEDS: MIDAZOLAM DRIP 50 mg/50mL 50 ML IV SCH ×5 (00:30→22:30)
[2020-07-10] MEDS: ATRACURIUM BESYLATE 1,000 MG in D5W 5% 150 ML IV SCH ×2 (04:45→12:40)
[2020-07-10] MEDS: ACCU-CHEK COMFORT CURVE STRIP VI SCH ×3 (05:40→14:27)
[2020-07-10] MEDS: InsuLIN REG 1unit/0.01ml Soln (100units/ml) SC SCH ×3 (05:42→12:00)
[2020-07-10] MEDS: MEROPENEM 1GM IVPB 100 ML IV SCH ×3 (05:50→22:00)
[2020-07-10] MEDS: fentaNYL Drip 2500mCg/250mlNS 250 ML IV SCH ×3 (06:20→22:45)
[2020-07-10] MEDS: ROCURONIUM 10MG/ML 10ML VIAL IV PRN ×2 (08:05→11:17)
[2020-07-10] MEDS: FLORASTOR (S. BOULARDII) 250 MG CAP PO SCH (10:00)
[2020-07-10 10:21] LABS: Albumin 1.9 g/dL (3.4-5.0); Calcium 8.6 mg/dL (8.5-10.1); Magnesium 2.3 mg/dL (1.6-2.6); Potassium 4.6 mmol/L (3.5-5.1)
[2020-07-10 10:24] LABS: BUN/Creatinine Ratio 62.5; Bilirubin, Total 0.2 mg/dL (0.2-1.0); Phosphorus 3.1 mg/dL (2.5-4.90); Total Protein 5.8 g/dL (6.4-8.2)
[2020-07-10] MEDS: DexAMETHasone SOD PHOS 10MG/1ML VIAL INJ IV SCH (10:55)
[2020-07-10] MEDS: FAMOTIDINE (10MG/ML) 2ML VL IV SCH ×2 (10:56→22:00)
[2020-07-10] MEDS: ZINC SULFATE 220mg CAP or TAB PO SCH (10:56)
[2020-07-10] MEDS: SODIUM CHLOR 0.9% PF (SALINE LOCK) 10ML VIAL/SYR IV SCH ×2 (10:56→22:00)
[2020-07-10] MEDS: ASCORBIC ACID 1,000 MG TAB PO SCH (10:57)
[2020-07-10] MEDS: CHOLECALCIFEROL (VITD3) 2,000 UNIT CAP/TAB PO SCH (10:57)
[2020-07-10] MEDS: ENOXAPARIN SOD 100 MG/1 ML SYRINGE SC SCH (10:58)
[2020-07-10] MEDS ORDERED: ADENOSINE 6 MG/2 ML INJ IV ONE ×3 (11:35→11:45)
[2020-07-10] MEDS ORDERED: FUROSEMIDE 40 MG/4 ML VIAL IV ONE (13:45)
[2020-07-10] MEDS: TPN PER PHARMACY IV NR ×9 (20:00)
[2020-07-10] MEDS: NOREPINEPHRINE 8 MG/250ML KIT 250 ML IV SCH (21:30)
[2020-07-11] VITALS (95 sets, daily range): BP systolic 84–148; BP diastolic 33–85
[2020-07-11] MEDS: MIDAZOLAM DRIP 50 mg/50mL 50 ML IV SCH ×5 (00:26→19:30)
[2020-07-11] MEDS: ACCU-CHEK COMFORT CURVE STRIP VI SCH ×4 (00:28→12:00)
[2020-07-11] MEDS: ENOXAPARIN SOD 100 MG/1 ML SYRINGE SC SCH ×3 (00:30→21:13)
[2020-07-11] MEDS: PROPOFOL 100 ML IV SCH ×3 (00:51→19:30)
[2020-07-11 05:47] LABS: Hemoglobin 10.1 g/dL (13.5-17.5); Mean Corpuscular Hemoglobin 31.9 pg (28.0-32.0)
[2020-07-11 05:50] LABS: Mean Corpuscular Hgb Conc. 32.4 g/dL (32.0-36.0); Mean Corpuscular Volume 98.2 fL (80.0-100.0); Platelet Count (auto) 529 10^3/uL (140-450); Red Blood Cells 3.16 10^6/uL (4.5-5.90); Red Cell Distribution Width 19.7 % (11.8-14.3); White Blood Cell 28.8 10^3/uL (4.4-10.8)
[2020-07-11] MEDS: InsuLIN REG 1unit/0.01ml Soln (100units/ml) SC SCH ×3 (06:00→12:00)
[2020-07-11 06:02] LABS: Basophils % (manual) 0 (0.0-2.0); Blast Cells 0; Eosinophils % (manual) 0 (0-7); Metamyelocytes % 0; Myelocytes % 0; Promyelocytes % 0; Reactive Lymphocytes 0
[2020-07-11 06:06] LABS: INR 1.07 (0.9-1.15)
[2020-07-11] MEDS: fentaNYL Drip 2500mCg/250mlNS 250 ML IV SCH ×3 (06:08→22:21)
[2020-07-11] MEDS: MEROPENEM 1GM IVPB 100 ML IV SCH ×3 (06:09→21:12)
[2020-07-11 06:10] LABS: Calcium 8.2 mg/dL (8.5-10.1); Magnesium 2.4 mg/dL (1.6-2.6); Potassium 4.3 mmol/L (3.5-5.1)
[2020-07-11 06:15] LABS: BUN/Creatinine Ratio 94.1; Bilirubin, Total 0.2 mg/dL (0.2-1.0); Phosphorus 3.4 mg/dL (2.5-4.90); Pre Albumin 30.5 mg/dL (20.0-40.0); Total Protein 5.9 g/dL (6.4-8.2)
[2020-07-11 07:23] LABS: Band Neutrophils % (manual) 4; Lymphocytes % (manual) 23 (10.0-50.0); Monocytes % (manual) 4 (0-12)
[2020-07-11] MEDS: FAMOTIDINE (10MG/ML) 2ML VL IV SCH ×2 (10:56→21:13)
[2020-07-11] MEDS: FUROSEMIDE 40 MG/4 ML VIAL IV SCH (10:58)
[2020-07-11] MEDS: SODIUM CHLOR 0.9% PF (SALINE LOCK) 10ML VIAL/SYR IV SCH ×2 (10:58→21:13)
[2020-07-11] MEDS: DexAMETHasone SOD PHOS 10MG/1ML VIAL INJ IV SCH (10:58)
[2020-07-11] MEDS: FLORASTOR (S. BOULARDII) 250 MG CAP PO SCH (10:59)
[2020-07-11] MEDS: CHOLECALCIFEROL (VITD3) 2,000 UNIT CAP/TAB PO SCH (10:59)
[2020-07-11] MEDS: ZINC SULFATE 220mg CAP or TAB PO SCH (10:59)
[2020-07-11] MEDS: ASCORBIC ACID 1,000 MG TAB PO SCH (15:08)
[2020-07-11] MEDS: ATRACURIUM BESYLATE 1,000 MG in D5W 5% 150 ML IV SCH (19:30)
[2020-07-11] MEDS: TPN PER PHARMACY IV NR ×9 (19:58)
[2020-07-11] MEDS ORDERED: TPN PER PHARMACY IV NR ×9 (20:00)
[2020-07-11] MEDS: AMIODARONE HCL 200 MG TAB PO SCH (21:13)
[2020-07-12] VITALS (97 sets, daily range): BP systolic 116–168; BP diastolic 59–96
[2020-07-12] MEDS: MIDAZOLAM DRIP 50 mg/50mL 50 ML IV SCH ×4 (00:41→21:15)
[2020-07-12] MEDS: PROPOFOL 100 ML IV SCH ×4 (00:42→23:17)
[2020-07-12] MEDS: InsuLIN REG 1unit/0.01ml Soln (100units/ml) SC SCH ×4 (01:45→18:00)
[2020-07-12] MEDS: ACCU-CHEK COMFORT CURVE STRIP VI SCH ×4 (01:45→18:00)
[2020-07-12] MEDS: MEROPENEM 1GM IVPB 100 ML IV SCH ×3 (05:32→22:55)
[2020-07-12 05:47] LABS: Mean Corpuscular Volume 97.7 fL (80.0-100.0); White Blood Cell 22.5 10^3/uL (4.4-10.8)
[2020-07-12 05:49] LABS: Hematocrit 27.5 % (41.0-53.0); Mean Corpuscular Hemoglobin 31.9 pg (28.0-32.0); Mean Corpuscular Hgb Conc. 32.7 g/dL (32.0-36.0); Platelet Count (auto) 518 10^3/uL (140-450); Red Blood Cells 2.82 10^6/uL (4.5-5.90)
[2020-07-12 06:03] LABS: Potassium 3.9 mmol/L (3.5-5.1)
[2020-07-12 06:13] LABS: Bilirubin, Total 0.2 mg/dL (0.2-1.0); Calcium 8.4 mg/dL (8.5-10.1); Magnesium 2.2 mg/dL (1.6-2.6); Phosphorus 1.9 mg/dL (2.5-4.90); Total Protein 5.6 g/dL (6.4-8.2)
[2020-07-12 06:25] LABS: Basophils % (manual) 0 (0.0-2.0); Blast Cells 0; Metamyelocytes % 0; Monocytes % (manual) 0 (0-12); Promyelocytes % 0; Reactive Lymphocytes 0
[2020-07-12] MEDS: fentaNYL Drip 2500mCg/250mlNS 250 ML IV SCH ×2 (06:42→23:17)
[2020-07-12 07:47] LABS: Band Neutrophils % (manual) 1; Eosinophils % (manual) 1 (0-7); Lymphocytes % (manual) 37 (10.0-50.0); Myelocytes % 1
[2020-07-12] MEDS ORDERED: SODIUM PHOSPHATES 30 MEQ in D5W 5% 250 ML IV ONE (09:45)
[2020-07-12] MEDS: DexAMETHasone SOD PHOS 10MG/1ML VIAL INJ IV SCH (14:10)
[2020-07-12] MEDS: FUROSEMIDE 40 MG/4 ML VIAL IV SCH (14:11)
[2020-07-12] MEDS: SODIUM CHLOR 0.9% PF (SALINE LOCK) 10ML VIAL/SYR IV SCH ×2 (14:12→21:13)
[2020-07-12] MEDS: ZINC SULFATE 220mg CAP or TAB PO SCH (14:12)
[2020-07-12] MEDS: FAMOTIDINE (10MG/ML) 2ML VL IV SCH ×2 (14:12→21:13)
[2020-07-12] MEDS: AMIODARONE HCL 200 MG TAB PO SCH ×2 (14:13→21:14)
[2020-07-12] MEDS: ENOXAPARIN SOD 100 MG/1 ML SYRINGE SC SCH ×2 (14:18→21:14)
[2020-07-12] MEDS: CHOLECALCIFEROL (VITD3) 2,000 UNIT CAP/TAB PO SCH (14:18)
[2020-07-12] MEDS: ASCORBIC ACID 1,000 MG TAB PO SCH (14:18)
[2020-07-12] MEDS: FLORASTOR (S. BOULARDII) 250 MG CAP PO SCH (14:18)
[2020-07-12] MEDS ORDERED: TPN PER PHARMACY IV NR ×9 (20:00)
[2020-07-13] VITALS (101 sets, daily range): BP systolic 110–160; BP diastolic 55–93
[2020-07-13] MEDS: InsuLIN REG 1unit/0.01ml Soln (100units/ml) SC SCH ×4 (00:46→18:00)
[2020-07-13] MEDS: ACCU-CHEK COMFORT CURVE STRIP VI SCH ×4 (00:46→18:27)
[2020-07-13] MEDS: PROPOFOL 100 ML IV SCH ×3 (02:35→21:30)
[2020-07-13] MEDS: MIDAZOLAM DRIP 50 mg/50mL 50 ML IV SCH ×4 (02:36→22:34)
[2020-07-13] MEDS: MEROPENEM 1GM IVPB 100 ML IV SCH ×3 (05:42→20:20)
[2020-07-13 05:52] LABS: Hemoglobin 9.1 g/dL (13.5-17.5); Mean Corpuscular Hemoglobin 31.4 pg (28.0-32.0)
[2020-07-13 05:54] LABS: Hematocrit 28.3 % (41.0-53.0); Mean Corpuscular Hgb Conc. 32.3 g/dL (32.0-36.0); Mean Corpuscular Volume 97.1 fL (80.0-100.0); Platelet Count (auto) 597 10^3/uL (140-450); Red Blood Cells 2.91 10^6/uL (4.5-5.90); Red Cell Distribution Width 19.3 % (11.8-14.3)
[2020-07-13 06:08] LABS: Potassium 3.5 mmol/L (3.5-5.1)
[2020-07-13 06:22] LABS: BUN/Creatinine Ratio 93.8; Bilirubin, Total 0.3 mg/dL (0.2-1.0); Calcium 8.4 mg/dL (8.5-10.1); Magnesium 2.4 mg/dL (1.6-2.6); Total Protein 5.6 g/dL (6.4-8.2)
[2020-07-13 06:23] LABS: Basophils % (manual) 0 (0.0-2.0); Blast Cells 0; Eosinophils % (manual) 0 (0-7); Promyelocytes % 0; Reactive Lymphocytes 0
[2020-07-13] MEDS: fentaNYL Drip 2500mCg/250mlNS 250 ML IV SCH ×2 (06:45→22:24)
[2020-07-13] MEDS: ATRACURIUM BESYLATE 1,000 MG in D5W 5% 150 ML IV SCH (06:48)
[2020-07-13] MEDS: ASCORBIC ACID 1,000 MG TAB PO SCH (10:00)
[2020-07-13] MEDS: CHOLECALCIFEROL (VITD3) 2,000 UNIT CAP/TAB PO SCH (10:00)
[2020-07-13] MEDS: SODIUM CHLOR 0.9% PF (SALINE LOCK) 10ML VIAL/SYR IV SCH ×2 (10:00→20:20)
[2020-07-13] MEDS: FLORASTOR (S. BOULARDII) 250 MG CAP PO SCH (10:00)
[2020-07-13] MEDS: ZINC SULFATE 220mg CAP or TAB PO SCH (10:00)
[2020-07-13] MEDS: ENOXAPARIN SOD 100 MG/1 ML SYRINGE SC SCH ×2 (10:00→20:20)
[2020-07-13] MEDS: FUROSEMIDE 40 MG/4 ML VIAL IV SCH (10:00)
[2020-07-13] MEDS: FAMOTIDINE (10MG/ML) 2ML VL IV SCH ×2 (10:00→20:20)
[2020-07-13] MEDS: DexAMETHasone SOD PHOS 10MG/1ML VIAL INJ IV SCH (10:00)
[2020-07-13] MEDS: AMIODARONE HCL 200 MG TAB PO SCH ×2 (10:00→20:20)
[2020-07-13 11:25] LABS: Band Neutrophils % (manual) 4; Lymphocytes % (manual) 22 (10.0-50.0)
[2020-07-13 11:26] LABS: Metamyelocytes % 2; Monocytes % (manual) 14 (0-12); Myelocytes % 1
[2020-07-13] MEDS ORDERED: POTASSIUM PHOSP 26.4MEQ(18MMOL) IN NS 100 ML IV ONE (12:00)
[2020-07-13] MEDS ORDERED: TPN PER PHARMACY IV NR ×7 (20:00)
[2020-07-14] VITALS (103 sets, daily range): BP systolic 98–154; BP diastolic 47–84
[2020-07-14] MEDS: PROPOFOL 100 ML IV SCH ×7 (00:24→23:48)
[2020-07-14] MEDS: ACCU-CHEK COMFORT CURVE STRIP VI SCH ×4 (00:25→18:00)
[2020-07-14] MEDS: InsuLIN REG 1unit/0.01ml Soln (100units/ml) SC SCH ×4 (00:26→18:00)
[2020-07-14] MEDS: MIDAZOLAM DRIP 50 mg/50mL 50 ML IV SCH ×4 (04:08→20:18)
[2020-07-14] MEDS: MEROPENEM 1GM IVPB 100 ML IV SCH ×3 (06:14→22:19)
[2020-07-14] MEDS: fentaNYL Drip 2500mCg/250mlNS 250 ML IV SCH (06:33)
[2020-07-14 06:45] LABS: Calcium 8.1 mg/dL (8.5-10.1); Magnesium 2.3 mg/dL (1.6-2.6); Potassium 4.2 mmol/L (3.5-5.1)
[2020-07-14 06:50] LABS: Bilirubin, Total 0.2 mg/dL (0.2-1.0); Total Protein 5.7 g/dL (6.4-8.2)
[2020-07-14] MEDS: CHOLECALCIFEROL (VITD3) 2,000 UNIT CAP/TAB PO SCH (10:20)
[2020-07-14] MEDS: FAMOTIDINE (10MG/ML) 2ML VL IV SCH ×2 (10:20→22:19)
[2020-07-14] MEDS: ASCORBIC ACID 1,000 MG TAB PO SCH (10:20)
[2020-07-14] MEDS: ZINC SULFATE 220mg CAP or TAB PO SCH (10:20)
[2020-07-14] MEDS: ENOXAPARIN SOD 100 MG/1 ML SYRINGE SC SCH ×2 (10:20→22:19)
[2020-07-14] MEDS: FUROSEMIDE 40 MG/4 ML VIAL IV SCH (10:20)
[2020-07-14] MEDS: FLORASTOR (S. BOULARDII) 250 MG CAP PO SCH (10:20)
[2020-07-14] MEDS: AMIODARONE HCL 200 MG TAB PO SCH ×2 (10:20→22:19)
[2020-07-14] MEDS: DexAMETHasone SOD PHOS 10MG/1ML VIAL INJ IV SCH (10:20)
[2020-07-14] MEDS: SODIUM CHLOR 0.9% PF (SALINE LOCK) 10ML VIAL/SYR IV SCH ×2 (10:20→22:19)
[2020-07-14] MEDS ORDERED: TPN PER PHARMACY IV NR ×8 (20:00)
[2020-07-14] MEDS: ATRACURIUM BESYLATE 1,000 MG in D5W 5% 150 ML IV SCH (22:17)
[2020-07-15] VITALS (102 sets, daily range): BP systolic 94–152; BP diastolic 43–83
[2020-07-15] MEDS: MIDAZOLAM DRIP 50 mg/50mL 50 ML IV SCH ×6 (00:41→17:00)
[2020-07-15] MEDS: PROPOFOL 100 ML IV SCH ×5 (03:14→13:25)
[2020-07-15] MEDS: ATRACURIUM BESYLATE 1,000 MG in D5W 5% 150 ML IV SCH (04:45)
[2020-07-15] MEDS: MEROPENEM 1GM IVPB 100 ML IV SCH ×3 (06:00→21:32)
[2020-07-15] MEDS: InsuLIN REG 1unit/0.01ml Soln (100units/ml) SC SCH ×4 (06:00→18:21)
[2020-07-15] MEDS: ACCU-CHEK COMFORT CURVE STRIP VI SCH ×4 (06:00→18:29)
[2020-07-15 06:55] LABS: Eosinophils # (auto) 0.1 10 ^3/uL (0-0.8); Monocytes # (auto) 2.1 10 ^3/uL (0-1.3); Red Blood Cells 2.97 10^6/uL (4.5-5.90)
[2020-07-15 06:56] LABS: Basophils # (auto) 0.3 10 ^3/uL (0-0.2); Basophils % (auto) 1.3 % (0.0-2.0); Eosinophils % (auto) 0.3 % (0.0-7.0); Hematocrit 28.8 % (41.0-53.0); Hemoglobin 9.4 g/dL (13.5-17.5); Lymphocytes # (auto) 7.3 10 ^3/uL (0.4-5.4); Lymphocytes % (auto) 35.7 % (10.0-50.0); Mean Corpuscular Hemoglobin 31.7 pg (28.0-32.0); Mean Corpuscular Hgb Conc. 32.6 g/dL (32.0-36.0); Monocytes % (auto) 10.5 % (0.0-12.0); Neutrophils # (auto) 10.7 10 ^3/uL (1.6-8.6); Neutrophils % (auto) 52.2 % (37.0-80.0); Nucleated Red Blood Cells % 0.1 %; Platelet Count (auto) 641 10^3/uL (140-450); Red Cell Distribution Width 19.5 % (11.8-14.3); White Blood Cell 20.4 10^3/uL (4.4-10.8)
[2020-07-15 07:12] LABS: Potassium 3.6 mmol/L (3.5-5.1)
[2020-07-15 07:19] LABS: Albumin 2.1 g/dL (3.4-5.0); BUN/Creatinine Ratio 78.9; Bilirubin, Total 0.3 mg/dL (0.2-1.0); Calcium 8.4 mg/dL (8.5-10.1); Magnesium 2.4 mg/dL (1.6-2.6); Phosphorus 2.1 mg/dL (2.5-4.90); Total Protein 5.8 g/dL (6.4-8.2)
[2020-07-15] MEDS: fentaNYL Drip 2500mCg/250mlNS 250 ML IV SCH ×3 (08:30→16:40)
[2020-07-15] MEDS ORDERED: hydrALAZINE HCL 20 MG/ML VL IV PRN (09:00)
[2020-07-15] MEDS ORDERED: cloNIDine HCL 0.1 MG TAB PO PRN (09:00)
[2020-07-15] MEDS: POTASSIUM CHL 20MEQ/100ML 100 ML IV SCH ×2 (09:30→12:00)
[2020-07-15] MEDS ORDERED: POTASSIUM PHOSP 22MEQ(15MMOLE) in NS 100 ML IV ONE (09:30)
[2020-07-15] MEDS ORDERED: SODIUM PHOSP 20MEQ(15MMOL) IN NS 100 ML IV ONE (09:45)
[2020-07-15] MEDS: FUROSEMIDE 40 MG/4 ML VIAL IV SCH (09:54)
[2020-07-15] MEDS: DexAMETHasone SOD PHOS 10MG/1ML VIAL INJ IV SCH (09:54)
[2020-07-15] MEDS: FAMOTIDINE (10MG/ML) 2ML VL IV SCH ×2 (09:54→21:32)
[2020-07-15] MEDS: SODIUM CHLOR 0.9% PF (SALINE LOCK) 10ML VIAL/SYR IV SCH ×2 (09:55→21:32)
[2020-07-15] MEDS: ZINC SULFATE 220mg CAP or TAB PO SCH (09:55)
[2020-07-15] MEDS: CHOLECALCIFEROL (VITD3) 2,000 UNIT CAP/TAB PO SCH (09:55)
[2020-07-15] MEDS: AMIODARONE HCL 200 MG TAB PO SCH ×2 (09:55→21:32)
[2020-07-15] MEDS: FLORASTOR (S. BOULARDII) 250 MG CAP PO SCH (09:55)
[2020-07-15] MEDS: ENOXAPARIN SOD 100 MG/1 ML SYRINGE SC SCH ×2 (09:55→21:32)
[2020-07-15] MEDS: ASCORBIC ACID 1,000 MG TAB PO SCH (09:55)
[2020-07-15] MEDS ORDERED: TPN PER PHARMACY IV NR ×9 (20:00)
[2020-07-15] MEDS ORDERED: SODIUM PHOSPHATES IV SCH ×9 (20:00)
[2020-07-15] MEDS ORDERED: SODIUM CHLORIDE IV SCH ×9 (20:00)
[2020-07-15] MEDS ORDERED: POTASSIUM CHLORIDE IV SCH ×9 (20:00)
[2020-07-15] MEDS ORDERED: [UNRECOGNIZED DRUG - OTHER] IV SCH ×9 (20:00)
[2020-07-16] VITALS (103 sets, daily range): BP systolic 98–141; BP diastolic 44–75
[2020-07-16] MEDS: ATRACURIUM BESYLATE 1,000 MG in D5W 5% 150 ML IV SCH (04:45)
[2020-07-16 05:43] LABS: Hemoglobin 9.2 g/dL (13.5-17.5)
[2020-07-16 05:46] LABS: Hematocrit 28.3 % (41.0-53.0); Mean Corpuscular Hemoglobin 31.6 pg (28.0-32.0); Mean Corpuscular Hgb Conc. 32.7 g/dL (32.0-36.0); Mean Corpuscular Volume 96.8 fL (80.0-100.0); Platelet Count (auto) 600 10^3/uL (140-450); Red Blood Cells 2.92 10^6/uL (4.5-5.90); Red Cell Distribution Width 19.4 % (11.8-14.3); White Blood Cell 19.5 10^3/uL (4.4-10.8)
[2020-07-16] MEDS: MEROPENEM 1GM IVPB 100 ML IV SCH ×3 (05:58→22:00)
[2020-07-16 05:59] LABS: Calcium 8.4 mg/dL (8.5-10.1); Magnesium 2.4 mg/dL (1.6-2.6)
[2020-07-16] MEDS: InsuLIN REG 1unit/0.01ml Soln (100units/ml) SC SCH ×4 (06:01→18:00)
[2020-07-16] MEDS: ACCU-CHEK COMFORT CURVE STRIP VI SCH ×4 (06:01→18:10)
[2020-07-16 06:06] LABS: BUN/Creatinine Ratio 94.1; Bilirubin, Total 0.3 mg/dL (0.2-1.0); Phosphorus 2.6 mg/dL (2.5-4.90); Total Protein 5.5 g/dL (6.4-8.2)
[2020-07-16 06:09] LABS: Blast Cells 0; Eosinophils % (manual) 0 (0-7); Promyelocytes % 0; Reactive Lymphocytes 0
[2020-07-16 07:49] LABS: Band Neutrophils % (manual) 2; Basophils % (manual) 1 (0.0-2.0); Lymphocytes % (manual) 30 (10.0-50.0); Metamyelocytes % 1; Monocytes % (manual) 6 (0-12); Myelocytes % 2
[2020-07-16] MEDS: FAMOTIDINE (10MG/ML) 2ML VL IV SCH ×2 (10:07→22:00)
[2020-07-16] MEDS: FUROSEMIDE 40 MG/4 ML VIAL IV SCH (10:07)
[2020-07-16] MEDS: DexAMETHasone SOD PHOS 10MG/1ML VIAL INJ IV SCH (10:07)
[2020-07-16] MEDS: SODIUM CHLOR 0.9% PF (SALINE LOCK) 10ML VIAL/SYR IV SCH ×2 (10:07→22:00)
[2020-07-16] MEDS: ZINC SULFATE 220mg CAP or TAB PO SCH (10:07)
[2020-07-16] MEDS: CHOLECALCIFEROL (VITD3) 2,000 UNIT CAP/TAB PO SCH (10:08)
[2020-07-16] MEDS: FLORASTOR (S. BOULARDII) 250 MG CAP PO SCH (10:08)
[2020-07-16] MEDS: ENOXAPARIN SOD 100 MG/1 ML SYRINGE SC SCH ×2 (10:08→22:00)
[2020-07-16] MEDS: ASCORBIC ACID 1,000 MG TAB PO SCH (10:08)
[2020-07-16] MEDS: AMIODARONE HCL 200 MG TAB PO SCH ×2 (10:08→22:00)
[2020-07-16] MEDS: PROPOFOL 100 ML IV SCH (10:11)
[2020-07-16] MEDS: MIDAZOLAM DRIP 50 mg/50mL 50 ML IV SCH (10:13)
[2020-07-16] MEDS: ERGOCALCIFEROL 50,000 UNIT(1.25MG) CAP PO SCH (15:00)
[2020-07-16] MEDS: NOREPINEPHRINE 8 MG/250ML KIT 250 ML IV SCH (19:00)
[2020-07-16] MEDS ORDERED: PROPOFOL 300 ML IV ONE (19:06)
[2020-07-16] MEDS ORDERED: TPN PER PHARMACY IV SCH ×8 (20:00)
[2020-07-17] VITALS (104 sets, daily range): BP systolic 104–152; BP diastolic 50–88
[2020-07-17] MEDS: ATRACURIUM BESYLATE 1,000 MG in D5W 5% 150 ML IV SCH ×2 (03:31→13:36)
[2020-07-17] MEDS: MEROPENEM 1GM IVPB 100 ML IV SCH ×3 (06:00→21:43)
[2020-07-17] MEDS: ACCU-CHEK COMFORT CURVE STRIP VI SCH ×4 (06:00→18:17)
[2020-07-17] MEDS: InsuLIN REG 1unit/0.01ml Soln (100units/ml) SC SCH ×4 (06:00→18:17)
[2020-07-17 06:39] LABS: Albumin 2.2 g/dL (3.4-5.0); Anion Gap 0 (5-15); Blood Urea Nitrogen 16 mg/dL (7-18); Calcium 8.5 mg/dL (8.5-10.1); Chloride 98 mmol/L (98-107); Glucose 134 mg/dL (74-106); Magnesium 2.3 mg/dL (1.6-2.6); Potassium 3.8 mmol/L (3.5-5.1); Sodium 139 mmol/L (136-145)
[2020-07-17 06:43] LABS: Alanine Aminotransferase 56 U/L (16-61); Alkaline Phosphatase 72 U/L (45-117); Aspartate Aminotransferase 16 U/L (15-37); BUN/Creatinine Ratio 106.7; Bilirubin, Total 0.3 mg/dL (0.2-1.0); CRP High Sensitivity 0.57 mg/dL (< 0.3); GFR African American 905 mL/min; GFR Non-African American 748 mL/min; Lactate Dehydrogenase 275 U/L (87-241); Phosphorus 2.8 mg/dL (2.5-4.90); Total Protein 5.8 g/dL (6.4-8.2)
[2020-07-17 06:49] LABS: Carbon Dioxide 41 mmol/L (21-32)
[2020-07-17] MEDS: fentaNYL Drip 2500mCg/250mlNS 250 ML IV SCH ×2 (07:47→17:23)
[2020-07-17] MEDS: PROPOFOL 100 ML IV SCH ×3 (09:12→15:04)
[2020-07-17] MEDS: MIDAZOLAM DRIP 50 mg/50mL 50 ML IV SCH ×3 (09:12→17:23)
[2020-07-17] MEDS: DexAMETHasone SOD PHOS 10MG/1ML VIAL INJ IV SCH (09:58)
[2020-07-17] MEDS: CHOLECALCIFEROL (VITD3) 2,000 UNIT CAP/TAB PO SCH (09:59)
[2020-07-17] MEDS: FUROSEMIDE 40 MG/4 ML VIAL IV SCH (09:59)
[2020-07-17] MEDS: FAMOTIDINE (10MG/ML) 2ML VL IV SCH ×2 (09:59→21:43)
[2020-07-17] MEDS: ENOXAPARIN SOD 100 MG/1 ML SYRINGE SC SCH ×2 (10:00→21:43)
[2020-07-17] MEDS: ZINC SULFATE 220mg CAP or TAB PO SCH (10:00)
[2020-07-17] MEDS: SODIUM CHLOR 0.9% PF (SALINE LOCK) 10ML VIAL/SYR IV SCH ×2 (10:00→21:43)
[2020-07-17] MEDS: ASCORBIC ACID 1,000 MG TAB PO SCH (10:00)
[2020-07-17] MEDS: AMIODARONE HCL 200 MG TAB PO SCH ×2 (10:00→21:43)
[2020-07-17] MEDS: FLORASTOR (S. BOULARDII) 250 MG CAP PO SCH (10:00)
[2020-07-17] MEDS: NOREPINEPHRINE 8 MG/250ML KIT 250 ML IV SCH (19:00)
[2020-07-17] MEDS: TPN PER PHARMACY IV NR ×9 (20:00)
[2020-07-17] MEDS ORDERED: TPN PER PHARMACY IV SCH ×9 (20:00)
[2020-07-18] VITALS (92 sets, daily range): BP systolic 105–158; BP diastolic 50–85
[2020-07-18] MEDS: MEROPENEM 1GM IVPB 100 ML IV SCH ×3 (06:00→20:26)
[2020-07-18] MEDS: ACCU-CHEK COMFORT CURVE STRIP VI SCH ×4 (06:00→17:08)
[2020-07-18] MEDS: InsuLIN REG 1unit/0.01ml Soln (100units/ml) SC SCH ×5 (06:00→23:39)
[2020-07-18 06:30] LABS: Albumin 2.3 g/dL (3.4-5.0); Calcium 8.6 mg/dL (8.5-10.1); Magnesium 2.3 mg/dL (1.6-2.6); Potassium 4.1 mmol/L (3.5-5.1)
[2020-07-18 06:35] LABS: Bilirubin, Total 0.2 mg/dL (0.2-1.0); Phosphorus 3.1 mg/dL (2.5-4.90); Total Protein 5.8 g/dL (6.4-8.2)
[2020-07-18] MEDS: fentaNYL Drip 2500mCg/250mlNS 250 ML IV SCH ×3 (08:58→23:00)
[2020-07-18] MEDS: ZINC SULFATE 220mg CAP or TAB PO SCH (09:48)
[2020-07-18] MEDS: FLORASTOR (S. BOULARDII) 250 MG CAP PO SCH (09:48)
[2020-07-18] MEDS: SODIUM CHLOR 0.9% PF (SALINE LOCK) 10ML VIAL/SYR IV SCH ×2 (09:48→20:26)
[2020-07-18] MEDS: DexAMETHasone SOD PHOS 10MG/1ML VIAL INJ IV SCH (09:48)
[2020-07-18] MEDS: ASCORBIC ACID 1,000 MG TAB PO SCH (09:48)
[2020-07-18] MEDS: FAMOTIDINE (10MG/ML) 2ML VL IV SCH ×2 (09:48→20:26)
[2020-07-18] MEDS: AMIODARONE HCL 200 MG TAB PO SCH ×2 (09:48→22:00)
[2020-07-18] MEDS: FUROSEMIDE 40 MG/4 ML VIAL IV SCH (09:48)
[2020-07-18] MEDS: PROPOFOL 100 ML IV SCH ×4 (09:49→22:00)
[2020-07-18] MEDS: ENOXAPARIN SOD 100 MG/1 ML SYRINGE SC SCH ×2 (09:49→22:00)
[2020-07-18] MEDS: CHOLECALCIFEROL (VITD3) 2,000 UNIT CAP/TAB PO SCH (09:49)
[2020-07-18] MEDS: MIDAZOLAM DRIP 50 mg/50mL 50 ML IV SCH ×3 (09:50→23:00)
[2020-07-18] MEDS: NOREPINEPHRINE 8 MG/250ML KIT 250 ML IV SCH (19:00)
[2020-07-18] MEDS: TPN PER PHARMACY IV NR ×9 (19:55)
[2020-07-18] MEDS ORDERED: TPN PER PHARMACY IV NR ×21 (20:00)
[2020-07-18] MEDS: ATRACURIUM BESYLATE 1,000 MG in D5W 5% 150 ML IV SCH (21:00)
[2020-07-19] VITALS (86 sets, daily range): BP systolic 97–158; BP diastolic 44–88
[2020-07-19] MEDS: MIDAZOLAM DRIP 50 mg/50mL 50 ML IV SCH ×3 (04:00→21:00)
[2020-07-19] MEDS: PROPOFOL 100 ML IV SCH ×4 (04:32→20:00)
[2020-07-19 05:49] LABS: Hematocrit 32.3 % (41.0-53.0); Hemoglobin 10.5 g/dL (13.5-17.5); Mean Corpuscular Hemoglobin 31.3 pg (28.0-32.0); Mean Corpuscular Hgb Conc. 32.5 g/dL (32.0-36.0); Mean Corpuscular Volume 96.4 fL (80.0-100.0); Platelet Count (auto) 500 10^3/uL (140-450); Red Blood Cells 3.35 10^6/uL (4.5-5.90); Red Cell Distribution Width 19.3 % (11.8-14.3); White Blood Cell 23.6 10^3/uL (4.4-10.8)
[2020-07-19] MEDS: MEROPENEM 1GM IVPB 100 ML IV SCH (06:00)
[2020-07-19] MEDS: ACCU-CHEK COMFORT CURVE STRIP VI SCH ×4 (06:00→17:07)
[2020-07-19] MEDS: InsuLIN REG 1unit/0.01ml Soln (100units/ml) SC SCH ×3 (06:00→17:04)
[2020-07-19 06:02] LABS: Albumin 2.4 g/dL (3.4-5.0); Calcium 8.3 mg/dL (8.5-10.1); Magnesium 2.4 mg/dL (1.6-2.6); Potassium 3.7 mmol/L (3.5-5.1)
[2020-07-19 06:05] LABS: BUN/Creatinine Ratio 106.3; Bilirubin, Total 0.3 mg/dL (0.2-1.0); Phosphorus 2.7 mg/dL (2.5-4.90); Total Protein 6.1 g/dL (6.4-8.2)
[2020-07-19 06:10] LABS: Basophils % (manual) 0 (0.0-2.0); Blast Cells 0; Eosinophils % (manual) 0 (0-7); Promyelocytes % 0; Reactive Lymphocytes 0
[2020-07-19] MEDS: SODIUM CHLOR 0.9% PF (SALINE LOCK) 10ML VIAL/SYR IV SCH ×2 (08:12→21:24)
[2020-07-19] MEDS: FAMOTIDINE (10MG/ML) 2ML VL IV SCH ×2 (08:12→21:24)
[2020-07-19] MEDS: FUROSEMIDE 40 MG/4 ML VIAL IV SCH (08:12)
[2020-07-19] MEDS: DexAMETHasone SOD PHOS 10MG/1ML VIAL INJ IV SCH (08:12)
[2020-07-19] MEDS: CHOLECALCIFEROL (VITD3) 2,000 UNIT CAP/TAB PO SCH (08:13)
[2020-07-19] MEDS: ENOXAPARIN SOD 100 MG/1 ML SYRINGE SC SCH ×2 (08:13→21:24)
[2020-07-19] MEDS: ASCORBIC ACID 1,000 MG TAB PO SCH (08:13)
[2020-07-19] MEDS: AMIODARONE HCL 200 MG TAB PO SCH ×2 (08:13→21:24)
[2020-07-19] MEDS: FLORASTOR (S. BOULARDII) 250 MG CAP PO SCH (08:13)
[2020-07-19] MEDS: ZINC SULFATE 220mg CAP or TAB PO SCH (08:13)
[2020-07-19 08:16] LABS: Band Neutrophils % (manual) 4; Lymphocytes % (manual) 20 (10.0-50.0); Metamyelocytes % 2; Monocytes % (manual) 9 (0-12); Myelocytes % 1
[2020-07-19] MEDS: fentaNYL Drip 2500mCg/250mlNS 250 ML IV SCH ×2 (09:16→17:09)
[2020-07-19] MEDS: ATRACURIUM BESYLATE 1,000 MG in D5W 5% 150 ML IV SCH (13:30)
[2020-07-19] MEDS: NOREPINEPHRINE 8 MG/250ML KIT 250 ML IV SCH (19:00)
[2020-07-19] MEDS ORDERED: TPN PER PHARMACY IV NR ×9 (20:00)
[2020-07-20] VITALS (103 sets, daily range): BP systolic 101–171; BP diastolic 46–87
[2020-07-20] MEDS: PROPOFOL 100 ML IV SCH ×4 (01:00→23:13)
[2020-07-20] MEDS: fentaNYL Drip 2500mCg/250mlNS 250 ML IV SCH ×2 (01:00→13:53)
[2020-07-20] MEDS: MIDAZOLAM DRIP 50 mg/50mL 50 ML IV SCH ×3 (03:00→23:14)
[2020-07-20] MEDS: InsuLIN REG 1unit/0.01ml Soln (100units/ml) SC SCH ×4 (06:00→18:00)
[2020-07-20] MEDS: ACCU-CHEK COMFORT CURVE STRIP VI SCH ×4 (06:00→18:00)
[2020-07-20 07:09] LABS: Chloride 98 mmol/L (98-107); Potassium 3.6 mmol/L (3.5-5.1); Sodium 139 mmol/L (136-145)
[2020-07-20 07:25] LABS: Alanine Aminotransferase 38 U/L (16-61); Albumin 2.2 g/dL (3.4-5.0); Alkaline Phosphatase 67 U/L (45-117); Anion Gap 3 (5-15); Aspartate Aminotransferase 13 U/L (15-37); BUN/Creatinine Ratio 113.3; Bilirubin, Total 0.2 mg/dL (0.2-1.0); Blood Urea Nitrogen 17 mg/dL (7-18); Calcium 8.1 mg/dL (8.5-10.1); Carbon Dioxide 38 mmol/L (21-32); GFR African American 905 mL/min; GFR Non-African American 748 mL/min; Glucose 122 mg/dL (74-106); Magnesium 2.4 mg/dL (1.6-2.6); Phosphorus 2.5 mg/dL (2.5-4.90); Total Protein 5.4 g/dL (6.4-8.2)
[2020-07-20] MEDS: DexAMETHasone SOD PHOS 10MG/1ML VIAL INJ IV SCH (08:47)
[2020-07-20] MEDS: SODIUM CHLOR 0.9% PF (SALINE LOCK) 10ML VIAL/SYR IV SCH ×2 (08:48→21:21)
[2020-07-20] MEDS: FUROSEMIDE 40 MG/4 ML VIAL IV SCH (08:48)
[2020-07-20] MEDS: FAMOTIDINE (10MG/ML) 2ML VL IV SCH ×2 (08:48→21:21)
[2020-07-20] MEDS: ZINC SULFATE 220mg CAP or TAB PO SCH (08:49)
[2020-07-20] MEDS: FLORASTOR (S. BOULARDII) 250 MG CAP PO SCH (08:52)
[2020-07-20] MEDS: AMIODARONE HCL 200 MG TAB PO SCH ×2 (08:52→21:22)
[2020-07-20] MEDS: ENOXAPARIN SOD 100 MG/1 ML SYRINGE SC SCH ×2 (08:53→21:23)
[2020-07-20] MEDS: ASCORBIC ACID 1,000 MG TAB PO SCH (08:53)
[2020-07-20] MEDS: CHOLECALCIFEROL (VITD3) 2,000 UNIT CAP/TAB PO SCH (08:53)
[2020-07-20] MEDS: ATRACURIUM BESYLATE 1,000 MG in D5W 5% 150 ML IV SCH (11:45)
[2020-07-20] MEDS ORDERED: METOPROLOL TARTRATE 1MG/1ML-5ML VIAL IV ONE (15:00)
[2020-07-20] MEDS: NOREPINEPHRINE 8 MG/250ML KIT 250 ML IV SCH (19:00)
[2020-07-20] MEDS ORDERED: TPN PER PHARMACY IV NR ×17 (20:00)
[2020-07-21] VITALS (90 sets, daily range): BP systolic 93–172; BP diastolic 45–92
[2020-07-21] MEDS: ACCU-CHEK COMFORT CURVE STRIP VI SCH ×4 (00:44→17:18)
[2020-07-21] MEDS: fentaNYL Drip 2500mCg/250mlNS 250 ML IV SCH ×3 (01:04→16:34)
[2020-07-21] MEDS: InsuLIN REG 1unit/0.01ml Soln (100units/ml) SC SCH ×4 (06:00→17:17)
[2020-07-21 06:09] LABS: BUN/Creatinine Ratio 112.5; Potassium 3.6 mmol/L (3.5-5.1)
[2020-07-21 06:10] LABS: Albumin 2.1 g/dL (3.4-5.0); Magnesium 2.4 mg/dL (1.6-2.6)
[2020-07-21 06:22] LABS: Bilirubin, Total 0.3 mg/dL (0.2-1.0); Phosphorus 3.7 mg/dL (2.5-4.90); Total Protein 5.6 g/dL (6.4-8.2)
[2020-07-21] MEDS: ATRACURIUM BESYLATE 1,000 MG in D5W 5% 150 ML IV SCH (07:15)
[2020-07-21] MEDS: PROPOFOL 100 ML IV SCH ×5 (08:17→18:48)
[2020-07-21] MEDS: MIDAZOLAM DRIP 50 mg/50mL 50 ML IV SCH ×4 (08:18→18:49)
[2020-07-21] MEDS: FLORASTOR (S. BOULARDII) 250 MG CAP PO SCH (10:00)
[2020-07-21] MEDS: DexAMETHasone SOD PHOS 10MG/1ML VIAL INJ IV SCH (10:00)
[2020-07-21] MEDS: ZINC SULFATE 220mg CAP or TAB PO SCH (10:00)
[2020-07-21] MEDS: FAMOTIDINE (10MG/ML) 2ML VL IV SCH ×2 (10:00→21:54)
[2020-07-21] MEDS: ENOXAPARIN SOD 100 MG/1 ML SYRINGE SC SCH ×2 (10:00→21:55)
[2020-07-21] MEDS: SODIUM CHLOR 0.9% PF (SALINE LOCK) 10ML VIAL/SYR IV SCH ×2 (10:00→21:54)
[2020-07-21] MEDS: CHOLECALCIFEROL (VITD3) 2,000 UNIT CAP/TAB PO SCH (10:00)
[2020-07-21] MEDS: FUROSEMIDE 40 MG/4 ML VIAL IV SCH (10:00)
[2020-07-21] MEDS: ASCORBIC ACID 1,000 MG TAB PO SCH (10:00)
[2020-07-21] MEDS: AMIODARONE HCL 200 MG TAB PO SCH ×2 (10:00→21:54)
[2020-07-21] MEDS: NOREPINEPHRINE 8 MG/250ML KIT 250 ML IV SCH (19:00)
[2020-07-21] MEDS ORDERED: TPN PER PHARMACY IV NR ×9 (20:00)
[2020-07-22] VITALS (106 sets, daily range): BP systolic 96–144; BP diastolic 46–79
[2020-07-22] MEDS: ACCU-CHEK COMFORT CURVE STRIP VI SCH ×5 (00:28→23:49)
[2020-07-22] MEDS: InsuLIN REG 1unit/0.01ml Soln (100units/ml) SC SCH ×5 (00:35→23:48)
[2020-07-22] MEDS: fentaNYL Drip 2500mCg/250mlNS 250 ML IV SCH (00:36)
[2020-07-22] MEDS: MIDAZOLAM DRIP 50 mg/50mL 50 ML IV SCH ×2 (01:18→21:00)
[2020-07-22] MEDS: PROPOFOL 100 ML IV SCH ×2 (01:18→21:00)
[2020-07-22] MEDS: ATRACURIUM BESYLATE 1,000 MG in D5W 5% 150 ML IV SCH (01:32)
[2020-07-22 06:04] LABS: Hematocrit 32.8 % (41.0-53.0); Hemoglobin 10.4 g/dL (13.5-17.5); Mean Corpuscular Hemoglobin 30.7 pg (28.0-32.0); Mean Corpuscular Hgb Conc. 31.5 g/dL (32.0-36.0); Mean Corpuscular Volume 97.4 fL (80.0-100.0); Platelet Count (auto) 421 10^3/uL (140-450); Red Blood Cells 3.37 10^6/uL (4.5-5.90); White Blood Cell 26.9 10^3/uL (4.4-10.8)
[2020-07-22 06:25] LABS: Albumin 2.4 g/dL (3.4-5.0); Calcium 8.6 mg/dL (8.5-10.1); Magnesium 2.4 mg/dL (1.6-2.6); Potassium 4.2 mmol/L (3.5-5.1)
[2020-07-22 06:28] LABS: Bilirubin, Total 0.5 mg/dL (0.2-1.0); Phosphorus 2.9 mg/dL (2.5-4.90)
[2020-07-22 06:47] LABS: Basophils % (manual) 0 (0.0-2.0); Blast Cells 0; Eosinophils % (manual) 0 (0-7); Promyelocytes % 0; Reactive Lymphocytes 0
[2020-07-22] MEDS: DexAMETHasone SOD PHOS 10MG/1ML VIAL INJ IV SCH (10:16)
[2020-07-22] MEDS: FAMOTIDINE (10MG/ML) 2ML VL IV SCH ×2 (10:17→22:08)
[2020-07-22] MEDS: SODIUM CHLOR 0.9% PF (SALINE LOCK) 10ML VIAL/SYR IV SCH ×2 (10:17→22:07)
[2020-07-22] MEDS: FUROSEMIDE 40 MG/4 ML VIAL IV SCH (10:17)
[2020-07-22] MEDS: ZINC SULFATE 220mg CAP or TAB PO SCH (10:17)
[2020-07-22] MEDS: CHOLECALCIFEROL (VITD3) 2,000 UNIT CAP/TAB PO SCH (10:18)
[2020-07-22] MEDS: FLORASTOR (S. BOULARDII) 250 MG CAP PO SCH (10:18)
[2020-07-22] MEDS: ASCORBIC ACID 1,000 MG TAB PO SCH (10:18)
[2020-07-22] MEDS: AMIODARONE HCL 200 MG TAB PO SCH ×2 (10:18→22:07)
[2020-07-22] MEDS: ENOXAPARIN SOD 100 MG/1 ML SYRINGE SC SCH ×2 (10:18→22:07)
[2020-07-22 11:25] LABS: Band Neutrophils % (manual) 10; Lymphocytes % (manual) 9 (10.0-50.0); Metamyelocytes % 1; Monocytes % (manual) 3 (0-12); Myelocytes % 1
[2020-07-22] MEDS ORDERED: levoFLOXacin 750MG 150 ML IV ONE (13:30)
[2020-07-22] MEDS: NOREPINEPHRINE 8 MG/250ML KIT 250 ML IV SCH (19:00)
[2020-07-22] MEDS: TPN PER PHARMACY IV NR ×9 (19:54)
[2020-07-23] VITALS (88 sets, daily range): BP systolic 101–153; BP diastolic 52–85
[2020-07-23 05:35] LABS: Albumin 2.2 g/dL (3.4-5.0); Anion Gap 4 (5-15); Blood Urea Nitrogen 16 mg/dL (7-18); Calcium 8.6 mg/dL (8.5-10.1); Carbon Dioxide 34 mmol/L (21-32); Chloride 103 mmol/L (98-107); Glucose 161 mg/dL (74-106); Magnesium 2.2 mg/dL (1.6-2.6); Potassium 3.8 mmol/L (3.5-5.1); Sodium 141 mmol/L (136-145)
[2020-07-23 05:38] LABS: Alanine Aminotransferase 41 U/L (16-61); Alkaline Phosphatase 77 U/L (45-117); Aspartate Aminotransferase 9 U/L (15-37); BUN/Creatinine Ratio 106.7; Bilirubin, Total 0.2 mg/dL (0.2-1.0); GFR African American 905 mL/min; GFR Non-African American 748 mL/min; Phosphorus 2.5 mg/dL (2.5-4.90); Total Protein 5.5 g/dL (6.4-8.2)
[2020-07-23] MEDS: ACCU-CHEK COMFORT CURVE STRIP VI SCH ×3 (05:38→18:00)
[2020-07-23] MEDS: InsuLIN REG 1unit/0.01ml Soln (100units/ml) SC SCH ×3 (05:38→18:00)
[2020-07-23] MEDS: PROPOFOL 100 ML IV SCH ×2 (09:39→10:54)
[2020-07-23] MEDS: fentaNYL Drip 2500mCg/250mlNS 250 ML IV SCH ×2 (09:39→16:31)
[2020-07-23] MEDS: MIDAZOLAM DRIP 50 mg/50mL 50 ML IV SCH (09:40)
[2020-07-23] MEDS: FLORASTOR (S. BOULARDII) 250 MG CAP PO SCH (10:00)
[2020-07-23] MEDS: DexAMETHasone SOD PHOS 10MG/1ML VIAL INJ IV SCH (10:57)
[2020-07-23] MEDS: ENOXAPARIN SOD 100 MG/1 ML SYRINGE SC SCH ×2 (10:57→21:53)
[2020-07-23] MEDS: FUROSEMIDE 40 MG/4 ML VIAL IV SCH (10:58)
[2020-07-23] MEDS: FAMOTIDINE (10MG/ML) 2ML VL IV SCH ×2 (10:59→21:53)
[2020-07-23] MEDS: ASCORBIC ACID 1,000 MG TAB PO SCH (10:59)
[2020-07-23] MEDS: CHOLECALCIFEROL (VITD3) 2,000 UNIT CAP/TAB PO SCH (10:59)
[2020-07-23] MEDS: SODIUM CHLOR 0.9% PF (SALINE LOCK) 10ML VIAL/SYR IV SCH ×2 (10:59→21:54)
[2020-07-23] MEDS: ZINC SULFATE 220mg CAP or TAB PO SCH (11:00)
[2020-07-23] MEDS: AMIODARONE HCL 200 MG TAB PO SCH ×2 (11:00→21:54)
[2020-07-23] MEDS: levoFLOXacin 750MG 150 ML IV SCH (11:25)
[2020-07-23] MEDS: ATRACURIUM BESYLATE 1,000 MG in D5W 5% 150 ML IV SCH (13:15)
[2020-07-23] MEDS: ERGOCALCIFEROL 50,000 UNIT(1.25MG) CAP PO SCH (15:00)
[2020-07-23] MEDS: TPN PER PHARMACY IV NR ×19 (19:52→20:00)
[2020-07-24] VITALS (81 sets, daily range): BP systolic 114–158; BP diastolic 58–89
[2020-07-24] MEDS: ACCU-CHEK COMFORT CURVE STRIP VI SCH ×4 (06:00→17:45)
[2020-07-24] MEDS: InsuLIN REG 1unit/0.01ml Soln (100units/ml) SC SCH ×4 (06:00→17:45)
[2020-07-24 06:24] LABS: Potassium 4.2 mmol/L (3.5-5.1)
[2020-07-24 06:35] LABS: Albumin 2.3 g/dL (3.4-5.0); BUN/Creatinine Ratio 83.3; Bilirubin, Total 0.2 mg/dL (0.2-1.0); Calcium 8.5 mg/dL (8.5-10.1); Magnesium 2.1 mg/dL (1.6-2.6); Total Protein 5.9 g/dL (6.4-8.2)
[2020-07-24] MEDS: fentaNYL Drip 2500mCg/250mlNS 250 ML IV SCH (08:30)
[2020-07-24] MEDS: PROPOFOL 100 ML IV SCH ×5 (08:30→21:00)
[2020-07-24] MEDS: MIDAZOLAM DRIP 50 mg/50mL 50 ML IV SCH ×4 (09:30→22:00)
[2020-07-24] MEDS: FLORASTOR (S. BOULARDII) 250 MG CAP PO SCH (10:15)
[2020-07-24] MEDS: CHOLECALCIFEROL (VITD3) 2,000 UNIT CAP/TAB PO SCH (10:15)
[2020-07-24] MEDS: AMIODARONE HCL 200 MG TAB PO SCH ×2 (10:15→21:42)
[2020-07-24] MEDS: ASCORBIC ACID 1,000 MG TAB PO SCH (10:15)
[2020-07-24] MEDS: SODIUM CHLOR 0.9% PF (SALINE LOCK) 10ML VIAL/SYR IV SCH ×2 (10:15→21:42)
[2020-07-24] MEDS: FAMOTIDINE (10MG/ML) 2ML VL IV SCH ×2 (10:15→21:42)
[2020-07-24] MEDS: FUROSEMIDE 40 MG/4 ML VIAL IV SCH (10:15)
[2020-07-24] MEDS: ENOXAPARIN SOD 100 MG/1 ML SYRINGE SC SCH ×2 (10:15→21:42)
[2020-07-24] MEDS: levoFLOXacin 750MG 150 ML IV SCH (10:15)
[2020-07-24] MEDS: ZINC SULFATE 220mg CAP or TAB PO SCH (10:15)
[2020-07-24] MEDS: ATRACURIUM BESYLATE 1,000 MG in D5W 5% 150 ML IV SCH ×2 (13:05→13:30)
[2020-07-24] MEDS: TPN PER PHARMACY IV NR ×20 (19:52→20:15)
[2020-07-25] VITALS (78 sets, daily range): BP systolic 101–144; BP diastolic 54–87
[2020-07-25] MEDS: fentaNYL Drip 2500mCg/250mlNS 250 ML IV SCH
[2020-07-25] MEDS: MIDAZOLAM DRIP 50 mg/50mL 50 ML IV SCH ×6 (01:00→23:00)
[2020-07-25] MEDS: PROPOFOL 100 ML IV SCH ×8 (01:00→23:00)
[2020-07-25] MEDS ORDERED: ATRACURIUM BESYLATE (10 MG/ ML) 10 ML VIAL ONE (04:35)
[2020-07-25] MEDS: ACCU-CHEK COMFORT CURVE STRIP VI SCH ×4 (05:52→18:00)
[2020-07-25] MEDS: InsuLIN REG 1unit/0.01ml Soln (100units/ml) SC SCH ×4 (05:52→18:00)
[2020-07-25 07:32] LABS: Chloride 102 mmol/L (98-107); Potassium 3.9 mmol/L (3.5-5.1); Sodium 140 mmol/L (136-145)
[2020-07-25 07:38] LABS: Alanine Aminotransferase 39 U/L (16-61); Albumin 2.2 g/dL (3.4-5.0); Alkaline Phosphatase 79 U/L (45-117); Anion Gap 6 (5-15); Aspartate Aminotransferase 28 U/L (15-37); BUN/Creatinine Ratio 106.7; Bilirubin, Total 0.3 mg/dL (0.2-1.0); Blood Urea Nitrogen 16 mg/dL (7-18); Calcium 8.4 mg/dL (8.5-10.1); Carbon Dioxide 32 mmol/L (21-32); GFR African American 905 mL/min; GFR Non-African American 748 mL/min; Glucose 105 mg/dL (74-106); Magnesium 2.2 mg/dL (1.6-2.6); Phosphorus 3.1 mg/dL (2.5-4.90); Total Protein 5.9 g/dL (6.4-8.2)
[2020-07-25 09:53] LABS: Hematocrit 32.7 % (41.0-53.0); Hemoglobin 10.6 g/dL (13.5-17.5); Mean Corpuscular Hemoglobin 31.4 pg (28.0-32.0); Mean Corpuscular Hgb Conc. 32.6 g/dL (32.0-36.0); Mean Corpuscular Volume 96.3 fL (80.0-100.0); Platelet Count (auto) 383 10^3/uL (140-450); Red Blood Cells 3.39 10^6/uL (4.5-5.90); Red Cell Distribution Width 18.9 % (11.8-14.3); White Blood Cell 22.6 10^3/uL (4.4-10.8)
[2020-07-25 09:56] LABS: Basophils % (manual) 0 (0.0-2.0); Blast Cells 0; Promyelocytes % 0; Reactive Lymphocytes 0
[2020-07-25] MEDS: levoFLOXacin 750MG 150 ML IV SCH (10:15)
[2020-07-25] MEDS: ASCORBIC ACID 1,000 MG TAB PO SCH (10:15)
[2020-07-25] MEDS: SODIUM CHLOR 0.9% PF (SALINE LOCK) 10ML VIAL/SYR IV SCH ×2 (10:15→22:14)
[2020-07-25] MEDS: FLORASTOR (S. BOULARDII) 250 MG CAP PO SCH (10:15)
[2020-07-25] MEDS: AMIODARONE HCL 200 MG TAB PO SCH ×2 (10:15→22:13)
[2020-07-25] MEDS: ZINC SULFATE 220mg CAP or TAB PO SCH (10:15)
[2020-07-25] MEDS: CHOLECALCIFEROL (VITD3) 2,000 UNIT CAP/TAB PO SCH (10:15)
[2020-07-25] MEDS: FUROSEMIDE 40 MG/4 ML VIAL IV SCH (10:15)
[2020-07-25] MEDS: FAMOTIDINE (10MG/ML) 2ML VL IV SCH ×2 (10:15→22:13)
[2020-07-25] MEDS: ENOXAPARIN SOD 100 MG/1 ML SYRINGE SC SCH ×2 (10:15→22:14)
[2020-07-25 11:22] LABS: Band Neutrophils % (manual) 4; Eosinophils % (manual) 2 (0-7); Lymphocytes % (manual) 21 (10.0-50.0); Metamyelocytes % 1; Monocytes % (manual) 6 (0-12); Myelocytes % 1
[2020-07-25] MEDS ORDERED: TPN PER PHARMACY IV NR ×10 (20:00)
[2020-07-25] MEDS: TPN PER PHARMACY IV NR ×10 (20:17)
[2020-07-26] VITALS (106 sets, daily range): BP systolic 86–140; BP diastolic 44–76
[2020-07-26] MEDS: fentaNYL Drip 2500mCg/250mlNS 250 ML IV SCH ×2 (01:20→22:44)
[2020-07-26] MEDS: ATRACURIUM BESYLATE 1,000 MG in D5W 5% 150 ML IV SCH ×2 (02:09→13:30)
[2020-07-26] MEDS: MIDAZOLAM DRIP 50 mg/50mL 50 ML IV SCH ×2 (03:31→21:00)
[2020-07-26 05:42] LABS: Hemoglobin 11.5 g/dL (13.5-17.5); Mean Corpuscular Hemoglobin 31.6 pg (28.0-32.0); Mean Corpuscular Hgb Conc. 32.9 g/dL (32.0-36.0); Platelet Count (auto) 367 10^3/uL (140-450); Red Blood Cells 3.65 10^6/uL (4.5-5.90); Red Cell Distribution Width 18.8 % (11.8-14.3); White Blood Cell 24.4 10^3/uL (4.4-10.8)
[2020-07-26 05:56] LABS: Chloride 99 mmol/L (98-107); Potassium 3.4 mmol/L (3.5-5.1); Sodium 140 mmol/L (136-145)
[2020-07-26] MEDS: InsuLIN REG 1unit/0.01ml Soln (100units/ml) SC SCH ×4 (06:00→18:00)
[2020-07-26 06:05] LABS: Alanine Aminotransferase 35 U/L (16-61); Albumin 2.4 g/dL (3.4-5.0); Alkaline Phosphatase 96 U/L (45-117); Anion Gap 4 (5-15); Aspartate Aminotransferase 13 U/L (15-37); BUN/Creatinine Ratio 126.7; Bilirubin, Total 0.2 mg/dL (0.2-1.0); Blood Urea Nitrogen 19 mg/dL (7-18); Calcium 8.4 mg/dL (8.5-10.1); Carbon Dioxide 37 mmol/L (21-32); GFR African American 905 mL/min; GFR Non-African American 748 mL/min; Glucose 116 mg/dL (74-106); Magnesium 2.1 mg/dL (1.6-2.6); Total Protein 6.1 g/dL (6.4-8.2)
[2020-07-26 06:08] LABS: Basophils % (manual) 0 (0.0-2.0); Blast Cells 0; Monocytes % (manual) 0 (0-12); Promyelocytes % 0; Reactive Lymphocytes 0
[2020-07-26] MEDS: ACCU-CHEK COMFORT CURVE STRIP VI SCH ×4 (06:12→18:00)
[2020-07-26 08:46] LABS: Band Neutrophils % (manual) 16; Eosinophils % (manual) 2 (0-7); Lymphocytes % (manual) 11 (10.0-50.0); Metamyelocytes % 1; Myelocytes % 3
[2020-07-26] MEDS ORDERED: POTASSIUM CHL 20MEQ/100ML 100 ML IV ONE (09:45)
[2020-07-26] MEDS: ROCURONIUM 10MG/ML 10ML VIAL IV PRN ×3 (09:58→12:30)
[2020-07-26] MEDS: ENOXAPARIN SOD 100 MG/1 ML SYRINGE SC SCH ×2 (10:00→22:08)
[2020-07-26] MEDS: ZINC SULFATE 220mg CAP or TAB PO SCH (10:00)
[2020-07-26] MEDS: FLORASTOR (S. BOULARDII) 250 MG CAP PO SCH (10:00)
[2020-07-26] MEDS: ASCORBIC ACID 1,000 MG TAB PO SCH (10:00)
[2020-07-26] MEDS: AMIODARONE HCL 200 MG TAB PO SCH ×2 (10:00→22:08)
[2020-07-26] MEDS: CHOLECALCIFEROL (VITD3) 2,000 UNIT CAP/TAB PO SCH (10:00)
[2020-07-26] MEDS: SODIUM CHLOR 0.9% PF (SALINE LOCK) 10ML VIAL/SYR IV SCH ×2 (10:00→22:08)
[2020-07-26] MEDS: levoFLOXacin 750MG 150 ML IV SCH (10:15)
[2020-07-26] MEDS: FAMOTIDINE (10MG/ML) 2ML VL IV SCH ×2 (10:15→22:07)
[2020-07-26] MEDS ORDERED: POTASSIUM EFFERVESENT TAB 25 MEQ GT ONE (10:45)
[2020-07-26] MEDS ORDERED: FLUCONAZOLE 200MG/100ML 100 ML IV ONE (10:45)
[2020-07-26] MEDS: AMPICILLIN INJ 1 GM in SODIUM CHL 0.9% 50 ML IV SCH ×2 (13:00→18:00)
[2020-07-26] MEDS: Glucerna 1.2 Cal 1Liter BOTTLE GT SCH (18:30)
[2020-07-26] MEDS ORDERED: TPN PER PHARMACY IV NR ×8 (20:00)
[2020-07-26] MEDS: PROPOFOL 100 ML IV SCH ×2 (21:00→22:58)
[2020-07-26] MEDS: NOREPINEPHRINE 8 MG/250ML KIT 250 ML IV SCH (21:45)
[2020-07-27] VITALS (107 sets, daily range): BP systolic 77–126; BP diastolic 38–70
[2020-07-27] MEDS: AMPICILLIN INJ 1 GM in SODIUM CHL 0.9% 50 ML IV SCH ×4 (00:12→17:34)
[2020-07-27] MEDS: MIDAZOLAM DRIP 50 mg/50mL 50 ML IV SCH ×6 (01:33→22:30)
[2020-07-27] MEDS: PROPOFOL 100 ML IV SCH ×6 (02:30→21:30)
[2020-07-27 05:51] LABS: Hematocrit 31.2 % (41.0-53.0); Hemoglobin 10.2 g/dL (13.5-17.5); Mean Corpuscular Hemoglobin 31.1 pg (28.0-32.0); Mean Corpuscular Hgb Conc. 32.7 g/dL (32.0-36.0); Mean Corpuscular Volume 95.1 fL (80.0-100.0); Platelet Count (auto) 340 10^3/uL (140-450); Red Blood Cells 3.28 10^6/uL (4.5-5.90); Red Cell Distribution Width 18.4 % (11.8-14.3); White Blood Cell 26.3 10^3/uL (4.4-10.8)
[2020-07-27] MEDS: ACCU-CHEK COMFORT CURVE STRIP VI SCH ×4 (06:00→17:45)
[2020-07-27] MEDS: InsuLIN REG 1unit/0.01ml Soln (100units/ml) SC SCH ×4 (06:00→17:45)
[2020-07-27 06:03] LABS: Basophils % (manual) 0 (0.0-2.0); Blast Cells 0; Promyelocytes % 0; Reactive Lymphocytes 0
[2020-07-27 06:33] LABS: Albumin 2.1 g/dL (3.4-5.0); Alkaline Phosphatase 103 U/L (45-117); Aspartate Aminotransferase 22 U/L (15-37); Bilirubin, Total 0.4 mg/dL (0.2-1.0); Blood Urea Nitrogen 21 mg/dL (7-18); Calcium 8.2 mg/dL (8.5-10.1); Carbon Dioxide 33 mmol/L (21-32); GFR African American 502 mL/min; GFR Non-African American 415 mL/min; Glucose 115 mg/dL (74-106); Magnesium 2.4 mg/dL (1.6-2.6); Phosphorus 3.6 mg/dL (2.5-4.90); Pre Albumin 45.3 mg/dL (20.0-40.0); Total Protein 5.6 g/dL (6.4-8.2); Triglycerides 673 mg/dL (< 150)
[2020-07-27] MEDS: fentaNYL Drip 2500mCg/250mlNS 250 ML IV SCH ×3 (07:00→22:30)
[2020-07-27 07:28] LABS: Band Neutrophils % (manual) 13; Eosinophils % (manual) 2 (0-7); Lymphocytes % (manual) 20 (10.0-50.0); Metamyelocytes % 3; Monocytes % (manual) 3 (0-12); Myelocytes % 2
[2020-07-27 09:26] LABS: Alanine Aminotransferase 34 U/L (16-61); Anion Gap 5 (5-15); Chloride 102 mmol/L (98-107); Potassium 4.4 mmol/L (3.5-5.1); Sodium 140 mmol/L (136-145)
[2020-07-27] MEDS: FLUCONAZOLE 200MG/100ML 100 ML IV SCH (09:41)
[2020-07-27] MEDS: FAMOTIDINE (10MG/ML) 2ML VL IV SCH ×2 (09:42→21:50)
[2020-07-27] MEDS: ZINC SULFATE 220mg CAP or TAB PO SCH (09:46)
[2020-07-27] MEDS: FLORASTOR (S. BOULARDII) 250 MG CAP PO SCH (09:47)
[2020-07-27] MEDS: ENOXAPARIN SOD 100 MG/1 ML SYRINGE SC SCH ×2 (09:47→21:51)
[2020-07-27] MEDS: CHOLECALCIFEROL (VITD3) 2,000 UNIT CAP/TAB PO SCH (09:47)
[2020-07-27] MEDS: AMIODARONE HCL 200 MG TAB PO SCH ×2 (09:47→21:51)
[2020-07-27] MEDS: ASCORBIC ACID 1,000 MG TAB PO SCH (09:47)
[2020-07-27] MEDS: SODIUM CHLOR 0.9% PF (SALINE LOCK) 10ML VIAL/SYR IV SCH ×2 (09:48→21:51)
[2020-07-27] MEDS: ATRACURIUM BESYLATE 1,000 MG in D5W 5% 150 ML IV SCH (09:49)
[2020-07-27] MEDS: levoFLOXacin 750MG 150 ML IV SCH (10:50)
[2020-07-27] MEDS ORDERED: FUROSEMIDE 40 MG/4 ML VIAL IV ONE (12:00)
[2020-07-27] MEDS ORDERED: TPN PER PHARMACY IV NR ×9 (20:00)
[2020-07-27] MEDS: NOREPINEPHRINE 8 MG/250ML KIT 250 ML IV SCH (21:45)
[2020-07-28] VITALS (105 sets, daily range): BP systolic 82–125; BP diastolic 35–62
[2020-07-28] MEDS: AMPICILLIN INJ 1 GM in SODIUM CHL 0.9% 50 ML IV SCH ×5 (00:25→23:59)
[2020-07-28] MEDS: InsuLIN REG 1unit/0.01ml Soln (100units/ml) SC SCH ×4 (00:26→18:00)
[2020-07-28] MEDS: ACCU-CHEK COMFORT CURVE STRIP VI SCH ×4 (00:26→19:15)
[2020-07-28] MEDS: PROPOFOL 100 ML IV SCH ×6 (00:38→22:53)
[2020-07-28] MEDS: MIDAZOLAM DRIP 50 mg/50mL 50 ML IV SCH ×6 (02:22→22:53)
[2020-07-28 06:06] LABS: Albumin 2.1 g/dL (3.4-5.0); BUN/Creatinine Ratio 89.3; Calcium 8.3 mg/dL (8.5-10.1); Magnesium 2.5 mg/dL (1.6-2.6); Potassium 4.4 mmol/L (3.5-5.1)
[2020-07-28 06:17] LABS: Bilirubin, Total 0.3 mg/dL (0.2-1.0); Phosphorus 5.2 mg/dL (2.5-4.90); Total Protein 5.9 g/dL (6.4-8.2)
[2020-07-28] MEDS: Glucerna 1.2 Cal 1Liter BOTTLE GT SCH (06:20)
[2020-07-28] MEDS: NOREPINEPHRINE 8 MG/250ML KIT 250 ML IV SCH (06:54)
[2020-07-28] MEDS: fentaNYL Drip 2500mCg/250mlNS 250 ML IV SCH ×3 (06:55→22:54)
[2020-07-28] MEDS: ENOXAPARIN SOD 100 MG/1 ML SYRINGE SC SCH ×2 (08:54→21:50)
[2020-07-28] MEDS: SODIUM CHLOR 0.9% PF (SALINE LOCK) 10ML VIAL/SYR IV SCH ×2 (08:54→21:50)
[2020-07-28] MEDS: ZINC SULFATE 220mg CAP or TAB PO SCH (08:54)
[2020-07-28] MEDS: FLORASTOR (S. BOULARDII) 250 MG CAP PO SCH (08:55)
[2020-07-28] MEDS: CHOLECALCIFEROL (VITD3) 2,000 UNIT CAP/TAB PO SCH (08:55)
[2020-07-28] MEDS: ASCORBIC ACID 1,000 MG TAB PO SCH (08:56)
[2020-07-28] MEDS: AMIODARONE HCL 200 MG TAB PO SCH ×2 (08:56→21:49)
[2020-07-28] MEDS: FAMOTIDINE (10MG/ML) 2ML VL IV SCH ×2 (08:58→21:50)
[2020-07-28] MEDS: FLUCONAZOLE 200MG/100ML 100 ML IV SCH (08:58)
[2020-07-28] MEDS: levoFLOXacin 750MG 150 ML IV SCH (09:54)
[2020-07-28] MEDS: ATRACURIUM BESYLATE 1,000 MG in D5W 5% 150 ML IV SCH (10:04)
[2020-07-29] VITALS (104 sets, daily range): BP systolic 74–119; BP diastolic 36–60
[2020-07-29] MEDS: MIDAZOLAM DRIP 50 mg/50mL 50 ML IV SCH ×6 (02:00→21:00)
[2020-07-29] MEDS: Glucerna 1.2 Cal 1Liter BOTTLE GT SCH (05:17)
[2020-07-29] MEDS: AMPICILLIN INJ 1 GM in SODIUM CHL 0.9% 50 ML IV SCH ×2 (05:49→12:03)
[2020-07-29] MEDS: InsuLIN REG 1unit/0.01ml Soln (100units/ml) SC SCH ×4 (06:00→18:18)
[2020-07-29] MEDS: ACCU-CHEK COMFORT CURVE STRIP VI SCH ×4 (06:09→18:18)
[2020-07-29] MEDS: PROPOFOL 100 ML IV SCH ×6 (06:10→21:00)
[2020-07-29] MEDS: fentaNYL Drip 2500mCg/250mlNS 250 ML IV SCH ×3 (06:11→21:30)
[2020-07-29 07:27] LABS: Hematocrit 28.4 % (41.0-53.0); Hemoglobin 9.4 g/dL (13.5-17.5); Mean Corpuscular Hemoglobin 32.3 pg (28.0-32.0); Mean Corpuscular Volume 98.1 fL (80.0-100.0); Platelet Count (auto) 283 10^3/uL (140-450); Red Cell Distribution Width 18.3 % (11.8-14.3); White Blood Cell 24.6 10^3/uL (4.4-10.8)
[2020-07-29 07:31] LABS: Basophils % (manual) 0 (0.0-2.0); Blast Cells 0; Metamyelocytes % 0; Promyelocytes % 0; Reactive Lymphocytes 0
[2020-07-29 07:53] LABS: Calcium 8.8 mg/dL (8.5-10.1); Potassium 4.7 mmol/L (3.5-5.1)
[2020-07-29 07:56] LABS: BUN/Creatinine Ratio 44.6; Band Neutrophils % (manual) 7; Bilirubin, Total 0.4 mg/dL (0.2-1.0); Eosinophils % (manual) 2 (0-7); Lymphocytes % (manual) 26 (10.0-50.0); Monocytes % (manual) 3 (0-12); Myelocytes % 3; Total Protein 5.8 g/dL (6.4-8.2)
[2020-07-29] MEDS: NOREPINEPHRINE 8 MG/250ML KIT 250 ML IV SCH (08:20)
[2020-07-29] MEDS: FLUCONAZOLE 200MG/100ML 100 ML IV SCH (09:48)
[2020-07-29] MEDS: FAMOTIDINE (10MG/ML) 2ML VL IV SCH ×2 (09:48→21:38)
[2020-07-29] MEDS: AMIODARONE HCL 200 MG TAB PO SCH ×2 (09:49→21:44)
[2020-07-29] MEDS: ZINC SULFATE 220mg CAP or TAB PO SCH (09:49)
[2020-07-29] MEDS: SODIUM CHLOR 0.9% PF (SALINE LOCK) 10ML VIAL/SYR IV SCH ×2 (09:49→21:44)
[2020-07-29] MEDS: ENOXAPARIN SOD 100 MG/1 ML SYRINGE SC SCH ×2 (09:50→21:44)
[2020-07-29] MEDS: FLORASTOR (S. BOULARDII) 250 MG CAP PO SCH (09:50)
[2020-07-29] MEDS: CHOLECALCIFEROL (VITD3) 2,000 UNIT CAP/TAB PO SCH (09:50)
[2020-07-29] MEDS: ASCORBIC ACID 1,000 MG TAB PO SCH (09:50)
[2020-07-29] MEDS: ATRACURIUM BESYLATE 1,000 MG in D5W 5% 150 ML IV SCH (09:52)
[2020-07-29] MEDS ORDERED: methylPREDNISolone SOD SUCC 40 MG/ML VL IV ONE (10:30)
[2020-07-29] MEDS: levoFLOXacin 750MG 150 ML IV SCH (11:18)
[2020-07-29] MEDS ORDERED: VANCOMYCIN PER PHARMACY 0 MG IV SCH (14:00)
[2020-07-29] MEDS: NOREPINEPHRINE BITARTRATE 16 MG in SODIUM CHL 0.9% 234 ML IV SCH ×2 (14:25→21:51)
[2020-07-29] MEDS: VASOPRESSIN 50 UNITS in D5W 5% 247.5 ML IV SCH (14:26)
[2020-07-29] MEDS: MEROPENEM 1GM IVPB 100 ML IV SCH (15:01)
[2020-07-29 17:23] LABS: Urine Amorphous Crystal FEW /hpf (None Seen); Urine Bacteria FEW /hpf (None Seen); Urine Blood 3+ /uL (Negative); Urine Specific Gravity 1.028 (1.001-1.035); Urine WBC 8 /hpf (0 - 3)
[2020-07-29] MEDS: VANCOMYCIN 1GM/250ML 250 ML IV SCH (18:00)
[2020-07-29] MEDS: methylPREDNISolone SOD SUCC 40 MG/ML VL IV SCH (21:44)
[2020-07-29] MEDS ORDERED: ALBUMIN 5% 250 ML IV ONE (22:15)
[2020-07-30] VITALS (96 sets, daily range): BP systolic 79–143; BP diastolic 16–63
[2020-07-30] MEDS: InsuLIN REG 1unit/0.01ml Soln (100units/ml) SC SCH ×4 (00:30→18:00)
[2020-07-30] MEDS: MEROPENEM 1GM IVPB 100 ML IV SCH ×4 (00:59→23:09)
[2020-07-30] MEDS: MIDAZOLAM DRIP 50 mg/50mL 50 ML IV SCH ×7 (01:01→21:58)
[2020-07-30] MEDS: VANCOMYCIN 1GM/250ML 250 ML IV SCH (02:40)
[2020-07-30] MEDS: PROPOFOL 100 ML IV SCH ×6 (02:54→23:10)
[2020-07-30] MEDS: Glucerna 1.2 Cal 1Liter BOTTLE GT SCH (05:00)
[2020-07-30 06:20] LABS: Hematocrit 29.2 % (41.0-53.0); Hemoglobin 9.4 g/dL (13.5-17.5); Mean Corpuscular Hemoglobin 31.6 pg (28.0-32.0); Mean Corpuscular Hgb Conc. 32.1 g/dL (32.0-36.0); Mean Corpuscular Volume 98.6 fL (80.0-100.0); Platelet Count (auto) 300 10^3/uL (140-450); Red Blood Cells 2.96 10^6/uL (4.5-5.90); Red Cell Distribution Width 18.4 % (11.8-14.3); White Blood Cell 20.4 10^3/uL (4.4-10.8)
[2020-07-30] MEDS: ACCU-CHEK COMFORT CURVE STRIP VI SCH ×4 (06:23→18:00)
[2020-07-30 06:30] LABS: Basophils % (manual) 0 (0.0-2.0); Blast Cells 0; Eosinophils % (manual) 0 (0-7); Reactive Lymphocytes 0
[2020-07-30 06:42] LABS: Calcium 8.5 mg/dL (8.5-10.1)
[2020-07-30 06:48] LABS: Potassium 6.7 mmol/L (3.5-5.1)
[2020-07-30] MEDS ORDERED: CALCIUM GLUC 4.65meq/50ml D5AE 50 ML IV ONE (07:30)
[2020-07-30] MEDS ORDERED: DEXTROSE (50%) 50ML SYRG IV ONE (07:30)
[2020-07-30] MEDS: NOREPINEPHRINE BITARTRATE 16 MG in SODIUM CHL 0.9% 234 ML IV SCH ×2 (07:30→16:34)
[2020-07-30] MEDS ORDERED: InsuLIN REG 1unit/0.01ml Soln (100units/ml) IV ONE (07:30)
[2020-07-30] MEDS ORDERED: SODIUM BICARBONATE 8.4 % INJ 50ML VIAL IV ONE ×2 (07:30→08:15)
[2020-07-30] MEDS ORDERED: SODIUM ZIRCONIUM CYCL 10 GM PAK PO ONE (07:30)
[2020-07-30] MEDS ORDERED: SODIUM BICARBONATE 8.4% INJ 50ML SYRINGE ONE (07:34)
[2020-07-30] MEDS ORDERED: SODIUM ZIRCONIUM CYCL 10 GM PAK ONE (07:34)
[2020-07-30 08:06] LABS: Band Neutrophils % (manual) 4; Lymphocytes % (manual) 5 (10.0-50.0); Metamyelocytes % 9; Monocytes % (manual) 2 (0-12); Myelocytes % 8; Promyelocytes % 1
[2020-07-30] MEDS: fentaNYL Drip 2500mCg/250mlNS 250 ML IV SCH ×2 (08:07→16:57)
[2020-07-30] MEDS: CHOLECALCIFEROL (VITD3) 2,000 UNIT CAP/TAB PO SCH (09:53)
[2020-07-30] MEDS: methylPREDNISolone SOD SUCC 40 MG/ML VL IV SCH ×2 (09:53→22:00)
[2020-07-30] MEDS: ASCORBIC ACID 1,000 MG TAB PO SCH (09:53)
[2020-07-30] MEDS: FLORASTOR (S. BOULARDII) 250 MG CAP PO SCH (09:53)
[2020-07-30] MEDS: SODIUM CHLOR 0.9% PF (SALINE LOCK) 10ML VIAL/SYR IV SCH ×2 (09:53→22:00)
[2020-07-30] MEDS: FAMOTIDINE (10MG/ML) 2ML VL IV SCH ×2 (09:53→22:00)
[2020-07-30] MEDS: FLUCONAZOLE 200MG/100ML 100 ML IV SCH (09:53)
[2020-07-30] MEDS: ENOXAPARIN SOD 100 MG/1 ML SYRINGE SC SCH ×2 (09:53→22:00)
[2020-07-30] MEDS: AMIODARONE HCL 200 MG TAB PO SCH ×2 (09:53→22:00)
[2020-07-30] MEDS: EPINEPHrine HCL 250 ML IV SCH ×3 (10:00→21:57)
[2020-07-30] MEDS: SODIUM BICARBONATE 50ML VIAL 150 ML in D5W 5% 1,000 ML IV SCH ×2 (10:45→22:15)
[2020-07-30] MEDS ORDERED: ARTIFICIAL TEAR OPTH(EYE) OINT 3.5GM EACHEYE ONE (10:45)
[2020-07-30] MEDS: LINEZOLID 600MG/300ML 300 ML IV SCH ×2 (11:03→23:00)
[2020-07-30] MEDS: PHENYLEPHRINE IV 250 ML IV SCH ×3 (11:17→21:56)
[2020-07-30] MEDS ORDERED: MORPHINE SULF INJ 2 MG/ML SYRINGE 1ML IV PRN (12:45)
[2020-07-30] MEDS ORDERED: LORazepam 2MG/ML-1ML VIAL IV PRN (12:45)
[2020-07-30] MEDS: ATRACURIUM BESYLATE 1,000 MG in D5W 5% 150 ML IV SCH (13:30)
[2020-07-30] MEDS: VASOPRESSIN 50 UNITS in D5W 5% 247.5 ML IV SCH (18:00)
[2020-07-30] MEDS ORDERED: NOREPINEPHRINE 8 MG/250ML KIT 0 ML IV ONE (22:50)
[2020-07-30] MEDS ORDERED: NOREPINEPHRINE BITARTRATE 2 ML IV ONE (22:56)
[2020-07-31] VITALS (18 sets, daily range): BP systolic 0–84; BP diastolic 23–36
[2020-07-31] MEDS: NOREPINEPHRINE BITARTRATE 16 MG in SODIUM CHL 0.9% 234 ML IV SCH (00:30)
[2020-07-31] MEDS ORDERED: PHENYLEPHRINE IV 250 ML IV ONE (01:04)
[2020-07-31] MEDS: MIDAZOLAM DRIP 50 mg/50mL 50 ML IV SCH (01:28)
[2020-07-31] MEDS ORDERED: PHENYLEPHRINE INJ 40 MG in SODIUM CHL 0.9% 246 ML IV SCH (02:00)
[2020-07-31] MEDS ORDERED: SODIUM BICARBONATE 8.4% INJ 50ML SYRINGE ONE (02:11)
[2020-07-31] MEDS: fentaNYL Drip 2500mCg/250mlNS 250 ML IV SCH (02:26)
[2020-07-31] MEDS: ATRACURIUM BESYLATE 1,000 MG in D5W 5% 150 ML IV SCH (03:00)
[2020-07-31] MEDS: SODIUM BICARBONATE 50ML VIAL 150 ML in D5W 5% 1,000 ML IV SCH (03:00)
[2020-07-31] MEDS ORDERED: ARTIFICIAL TEAR OPTH(EYE) OINT 3.5GM EACHEYE SCH (22:00)
== END 2020-07-31 03:08 | DRG 870 ==
LOC: ER 08:21 → OVERFLOW 08:22 → TELE-WESTW 05-24 11:52 → DOU IN ICU 05-25 18:22
PROVIDERS: ADMIT Internal Medicine; ATTEND Internal Medicine
PROC: XW033E5 Introduction of Remdesivir Anti-infective into Peripheral Vein, Percutaneous Approach, New Technology Group 5 (ICD-10-PCS; principal; 2020-05-19)
PROC: XW13325 Transfusion of Convalescent Plasma (Nonautologous) into Peripheral Vein, Percutaneous Approach, New Technology Group 5 (ICD-10-PCS; 2020-05-19)
PROC: 5A1955Z Respiratory Ventilation, Greater than 96 Consecutive Hours (ICD-10-PCS; 2020-05-26)
PROC: 0BH17EZ Insertion of Endotracheal Airway into Trachea, Via Natural or Artificial Opening (ICD-10-PCS; 2020-05-26)
PROC: 02HV33Z Insertion of Infusion Device into Superior Vena Cava, Percutaneous Approach (ICD-10-PCS; 2020-05-26)
PROC: 3E03317 Introduction of Other Thrombolytic into Peripheral Vein, Percutaneous Approach (ICD-10-PCS; 2020-05-26)
PROC: 05HA33Z Insertion of Infusion Device into Left Brachial Vein, Percutaneous Approach (ICD-10-PCS; 2020-06-13)
PROC: B54NZZA Ultrasonography of Left Upper Extremity Veins, Guidance (ICD-10-PCS; 2020-06-13)
DX: A41.89 Other specified sepsis (principal); G92 Toxic encephalopathy; I26.99 Other pulmonary embolism without acute cor pulmonale; J12.82 Pneumonia due to coronavirus disease 2019; J80 Acute respiratory distress syndrome; U07.1 COVID-19; R65.21 Severe sepsis with septic shock; D68.59 Other primary thrombophilia; E87.1 Hypo-osmolality and hyponatremia; E87.4 Mixed disorder of acid-base balance; I47.1 Supraventricular tachycardia; J98.11 Atelectasis; N17.9 Acute kidney failure, unspecified; E11.65 Type 2 diabetes mellitus with hyperglycemia; E55.9 Vitamin D deficiency, unspecified; Z66 Do not resuscitate; E66.01 Morbid (severe) obesity due to excess calories; Z68.33 Body mass index [BMI] 33.0-33.9, adult; E78.5 Hyperlipidemia, unspecified; E87.5 Hyperkalemia; G47.33 Obstructive sleep apnea (adult) (pediatric); G83.9 Paralytic syndrome, unspecified; I48.0 Paroxysmal atrial fibrillation; J98.2 Interstitial emphysema; R04.0 Epistaxis; T38.0X5A Adverse effect of glucocorticoids and synthetic analogues, initial encounter; Z80.6 Family history of leukemia; Z83.3 Family history of diabetes mellitus; Z86.711 Personal history of pulmonary embolism; Z90.81 Acquired absence of spleen; I51.3 Intracardiac thrombosis, not elsewhere classified
CPT/HCPCS: 36415; 36600; 70450; 71045; 71250; 71275; 74018; 74176; 80048; 80053; 80061; 80076; 80158; 81001; 82040; 82306; 82728; 82805; 82962; 83036; 83605; 83615; 83735; 83880; 84100; 84132; 84443; 84478; 84484; 85007; 85025; 85027; 85379; 85384; 85610; 85730; 86141; 86850; 86900; 86901; 87040; 87045; 87070; 87076; 87077; 87081; 87086; 87186; 87205; 87426; 87427; 87493; 93005; 93306; 93970; 94002; 94003; 94640; 94668; 95819; 96361; 96365; 96375; 99291; G0378; J0153; J0171; J0330; J0610; J1100; J1450; J1815; J1956; J2185; J2248; J2250; J2405; J2543; J2704; J3480; J3490; J7060; J7131